=== PATIENT | female | born 2000 | race Caucasian/White ===

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

== ENCOUNTER 2022-03-03 10:14 | Outpatient (REF) | payer OTHER, SELFPAY ==
[2022-03-03 11:03] LABS: Influenza A PCR NEGATIVE (Negative); Influenza B PCR NEGATIVE (Negative); Resp Syncy Virus RNA Qual PCR NEGATIVE (Negative); SARS COV2 PCR INHOUSE NEGATIVE (Negative)
== END 2022-03-03 10:15 | disposition home or self-care (01) ==
LOC: HO.LAB 10:14
PROVIDERS: Visit Provider Internal Medicine
DX: Z20.822 Contact with and (suspected) exposure to COVID-19 (principal)
CPT/HCPCS: 0241U; C9803

== ENCOUNTER → 2022-03-20 10:04 | Outpatient (BNVA) | payer OTHER, SELFPAY | PROVIDERS: PCP Internal Medicine; Visit Provider Advanced Practice Midwife | DX: N92.6 Irregular menstruation, unspecified (principal); Z32.02 Encounter for pregnancy test, result negative | CPT/HCPCS: 81025; 99212 ==

== ENCOUNTER 2022-03-23 11:19 | Outpatient (REF) | payer OTHER, SELFPAY ==
[2022-03-23 13:22] LABS: Syphilis Screen Nonreactive (Nonreactive)
[2022-03-23 14:41] LABS: CT PCR NOT DETECTED (Not Detect.); NG PCR NOT DETECTED (Not Detect.)
[2022-03-24 08:07] LABS: HBc Num1 0.06 S/CO (0.00-0.79); HIV AB/AG Nonreactive (Nonreactive); HIV Num 1 0.09 S/CO (0.00-0.99); Hepatitis B Core Antibody Nonreactive (Nonreactive); ~HepC Num1 0.09 S/CO (0.00-0.79); ~Hepatitis C Antibody Nonreactive (Nonreactive)
== END 2022-03-23 11:20 | disposition home or self-care (01) ==
LOC: HO.LAB 11:19
PROVIDERS: PCP Internal Medicine; Visit Provider Advanced Practice Midwife
DX: Z01.419 Encounter for gynecological examination (general) (routine) without abnormal findings (principal); Z20.2 Contact with and (suspected) exposure to infections with a predominantly sexual mode of transmission
CPT/HCPCS: 36415; 86704; 86780; 86803; 87389; 87491; 87591

== ENCOUNTER 2022-04-10 12:41 | Outpatient (REF) | payer OTHER, SELFPAY ==
[2022-04-10 13:26] LABS: COVID-19 Test Negative (Negative)
== END 2022-04-10 12:42 | disposition home or self-care (01) ==
LOC: HO.LAB 12:41
PROVIDERS: Visit Provider Internal Medicine
DX: Z20.822 Contact with and (suspected) exposure to COVID-19 (principal)
CPT/HCPCS: 87635; C9803

== ENCOUNTER 2022-07-20 11:37 | Emergency (ER) | payer OTHER, SELFPAY ==
[2022-07-20 11:56] VITALS: BP 112/77; PULSE 64; RESP 18; TEMP 36.9; O2SAT 99; BMI 23.6
--- NOTE | 2022-07-20 11:57 | ED.SKABFB ---
HPI - Skin/Abscess/Foreign Bdy General Chief complaint: Skin/Abscess/Foreign Body <Debbie Ocampo CNP - Last Filed: 07/20/22 11:59> Stated complaint: lump under R Side Armpit <Debbie Ocampo CNP - Last Filed: 07/20/22 11:59> Time Seen by Provider: 07/20/22 16:27 <Debbie Ocampo CNP - Last Filed: 07/20/22 11:59> Source: patient <Aretha Dubois NP - Last Filed: 07/20/22 17:30> Mode of arrival: ambulatory <Aretha Dubois NP - Last Filed: 07/20/22 17:30> Limitations: no limitations <Aretha Dubois NP - Last Filed: 07/20/22 17:30> History of Present Illness HPI narrative: 22-year-old female with past medical history of cellulitis, gastroenteritis, and infected sebaceous cyst presents to the emergency department today with complaints of a right axilla cyst causing pain to breast in armpit. She states she has previously had I&D's for similar issues but has not seen a polymerization engineer or specialist for this. She denies any fever, chills, or red streaking. <Aretha Dubois NP - Last Filed: 07/20/22 17:30> MD complaint: abscess/boil <Aretha Dubois NP - Last Filed: 07/20/22 17:30> Onset (ago): day(s) (2) <Aretha Dubois NP - Last Filed: 07/20/22 17:30> Severity: moderate <Aretha Dubois NP - Last Filed: 07/20/22 17:30> Severity scale (1-10): 5 <Aretha Dubois NP - Last Filed: 07/20/22 17:30> Quality: sharp <Aretha uDbois NP - Last Filed: 07/20/22 17:30> Pain Consistency: constant <Aretha Dubois NP - Last Filed: 07/20/22 17:30> Relieving factors: none <Aretha Dubois NP - Last Filed: 07/20/22 17:30> Exacerbating factors: palpation <Aretha Dubois NP - Last Filed: 07/20/22 17:30> Context: none <Aretha Dubois NP - Last Filed: 07/20/22 17:30> Associated symptoms: denies other symptoms <Aretha Dubois NP - Last Filed: 07/20/22 17:30> Treatments prior to arrival: none <Aretha Dubois NP - Last Filed: 07/20/22 17:30> Related Data Home medications: Home Medications Medication Instructions Recorded Confirmed etonogestrel 68 mg subdermal subdermal 06/23/21 implant (Nexplanon) Previous Rx's Medication Instructions Recorded cefuroxime axetil 500 mg tablet 500 mg PO BID 7 days #14 tabs 07/20/22 clindamycin phosphate 1 % topical 1 appl topical BID #60 grams 07/20/22 gel doxycycline hyclate 100 mg tablet 100 mg PO BID 7 days #14 tabs 07/20/22 <Debbie Ocampo CNP - Last Filed: 07/20/22 11:59> Allergies/Adverse reactions: Allergies Allergy/AdvReac Type Severity Reaction Status Date / Time No Known Allergies Allergy Verified 03/23/22 10:57 <Debbie Ocampo CNP - Last Filed: 07/20/22 11:59> Review of Systems Review of Systems: In addition to documented HPI above, the additional ROS was obtained: Constitutional: No Weight loss, No Fever, No Chills ENT/Mouth: No Ear Pain, No Nasal Congestion, No Sinus Pain, No Hoarseness, No sore throat, No Rhinorrhea, No Swallowing Difficulty Cardiovascular: No Chest Pain, No SOB Respiratory: No Cough, No Sputum, No Wheezing Musculoskeletal: No joint pain, No Myalgias, No Joint Swelling Skin: No rash Neuro: No Weakness, No Numbness, No Paresthesias <Aretha Dubois NP - Last Filed: 07/20/22 17:30> Yes all other systems are reviewed and are negative <Aretha Dubois NP - Last Filed: 07/20/22 17:30> [facility] Past Medical History Attestation statement: The following information was validated with the patient. <Aretha Dubois NP - Last Filed: 07/20/22 17:30> Source: old records reviewed <Aretha Dubois NP - Last Filed: 07/20/22 17:30> Medical History: Medical History Gastroenteritis No active medical problems No known health problems <Debbie Ocampo CNP - Last Filed: 07/20/22 11:59> Family History Family History: Family History Maternal Grandfather Colon cancer, Onset Age: 70 <Debbie Ocampo CNP - Last Filed: 07/20/22 11:59> Social History Social History: Social History Household Members Other:: mom and stepdad Housing: House Alcohol intake: never Patient Tobacco Use Status: Never used Tobacco Advance Directives: No Advance Directives Information Provided: No Current occupational status: employed 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[place] Sexual orientation: Straight/Heterosexual Gender identity: Female <Debbie Ocampo CNP - Last Filed: 07/20/22 11:59> Physical Exam Vital Signs: Vital Signs: Last Vital Signs Temp 98.4 F 07/20/22 11:56 Pulse 64 07/20/22 11:56 Resp 18 07/20/22 11:56 BP 112/77 07/20/22 11:56 Pulse Ox 99 07/20/22 11:56 O2 Del Method 07/20/22 11:56 BMI result Body Mass Index 23.6 <Debbie Ocampo CNP - Last Filed: 07/20/22 11:59> Vital Signs: Last Vital Signs Temp 98.4 F 07/20/22 11:56 Pulse 64 07/20/22 11:56 Resp 18 07/20/22 11:56 BP 112/77 07/20/22 11:56 Pulse Ox 99 07/20/22 11:56 O2 Del Method 07/20/22 11:56 BMI result Body Mass Index 23.6 <Aretha Dubois SUPERVISOR [employer] SHEARING - Last Filed: 07/20/22 17:30> Const: General: cooperative, alert and awake <Aretha Dubois SUPERVIS[employer] SHE[employer] - Last Filed: 07/20/22 17:30> Nutritional Appearance: well nourished <Aretha Dubois [employer]PERVIS[employer] SHE[employer] - Last Filed: 07/20/22 17:30> Orientation/consciousness: patient oriented x3 <Aretha Dubois [employer]PERVIS[employer] - Last Filed: 07/20/22 17:30> Limitations: no limitations <Aretha Dubois, SUPERVIS[employer] - Last Filed: 07/20/22 17:30> HEENT: Head: Yes normal to inspection and Yes atraumatic <Aretha Dubois SUPERVIS[employer] - Last Filed: 07/20/22 17:30> Ears: hearing grossly normal bilaterally <Aretha Dubois [employer]PERVIS[employer] - Last Filed: 07/20/22 17:30> General nose exam: Normal external nose present <Aretha Dubois [employer]PER[employer] - Last Filed: 07/20/22 17:30> Face and sinus: Yes normal facial exam <Aretha Dubois [employer]PERVIS[employer] - Last Filed: 07/20/22 17:30> Mouth: Normal oral and palatal mucosa present <Aretha Dubois [employer]PERVIS[employer] - Last Filed: 07/20/22 17:30> Eyes: General: appearance normal, both eyes and all related structures <Aretha Dubois [employer] - Last Filed: 07/20/22 17:30> Visual Hernandez: normal visual hernandez by confrontation <Aretha Dubois [employer]PERVIS[employer] - Last Filed: 07/20/22 17:30> Alignment and Position: alignment normal <Aretha Dubois [employer]PERVIS[employer] - Last Filed: 07/20/22 17:30> Periorbital: periorbital findings normal <Aretha Dubois [employer]PERVIS[employer] SHE[employer] - Last Filed: 07/20/22 17:30> Eyelids: Yes eyelids normal <Aretha Dubois [employer]PERVIS[employer] - Last Filed: 07/20/22 17:30> Conjunctivae: conjunctivae normal <Aretha Dubois SUPERVIS[employer] - Last Filed: 07/20/22 17:30> Sclerae: sclerae normal <Aretha Dubois, SUPERVISOR [employer] SHE[employer] - Last Filed: 07/20/22 17:30> Corneas: corneas normal <Arethavonda Dubois, SUPERVIS[employer] - Last Filed: 07/20/22 17:30> Pupils: Equal, round and reactive pupils present <Aretha Dubois, SUPERVISOR [employer] SHEARING - Last Filed: 07/20/22 17:30> EOM: EOMs intact bilaterally <Aretha Dubois, SUPERVISOR [employer] SHEARING - Last Filed: 07/20/22 17:30> Neck: Neck: Yes normal visual inspection, Yes full ROM and Yes no lymphadenopathy <Aretha Dubois, SUPERVISOR [employer] SHEARING - Last Filed: 07/20/22 17:30> Chest: Chest palpation & inspection: normal inspection of the chest <Aretha Dubois, SUPERVISOR [employer] SHEARING - Last Filed: 07/20/22 17:30> Breast/axilla inspection: normal inspection of the breasts and abnormal inspection of the axilla (abscess right axilla ) <Aretha Dubois, SUPERVISOR [employer] SHEARING - Last Filed: 07/20/22 17:30> Breast/axilla palpation: normal palpation of the breasts and no axillary lymphadenopathy <Aretha Dubois, SUPERVISOR [employer] SHEARING - Last Filed: 07/20/22 17:30> Resp: Effort & Inspection: normal respiratory effort and not labored <Aretha Dubois, SUPERVISOR [employer] SHEARING - Last Filed: 07/20/22 17:30> Auscultation: clear to auscultation bilaterally, no crackles, no rhonchi and no wheezes <Aretha Dubois, SUPERVISOR [employer] SHEARING - Last Filed: 07/20/22 17:30> Cardio: Rate: regular rate <Aretha Dubois, SUPERVISOR [employer] SHEARING - Last Filed: 07/20/22 17:30> Rhythm: regular rhythm <Aretha Dubois, SUPERVISOR [employer] SHEARING - Last Filed: 07/20/22 17:30> Back/Spine/Pelvis: Cervical Spine: cervical ROM normal <Aretha Dubois, SUPERVISOR [employer] SHEARING - Last Filed: 07/20/22 17:30> Thoracic/Lumbar Spine: thoraco-lumbar ROM normal <Aretha Dubois, SUPERVISOR [employer] SHEARING - Last Filed: 07/20/22 17:30> Skin: Lesions: lesion noted (right axilla) <Aretha Dubois, SUPERVISOR [employer] SHEARING - Last Filed: 07/20/22 17:30> Neuro: General: patient oriented x3, tone normal and moves all extremities <Aretha Dubois, SUPERVISOR [employer] SHEARING - Last Filed: 07/20/22 17:30> Cranial nerves: Yes Equal, round and reactive pupils present <Aretha Dubois, SUPERVISOR [employer] SHEARING - Last Filed: 07/20/22 17:30> Cognition (Neuro): normal cognition <Arethaericka Dubois, SUPERVISOR [employer] SHEARING - Last Filed: 07/20/22 17:30> Gait exam (Neuro): Normal gait present <Aretha Dubois, SUPERVISOR [employer] SHEARING - Last Filed: 07/20/22 17:30> Motor exam (neuro): 5/5 motor strength present throughout <Aretha Dubosi, SUPERVISOR [employer] - Last Filed: 07/20/22 17:30> Extrem: General: Yes normal to inspection, Yes full ROM and Yes capillary refill normal <Aretha Dubois, SUPERVISOR [employer] SHEARING - Last Filed: 07/20/22 17:30> Psych: Appearance: grossly normal and well kempt <Aretha Dubois, SUPERVISOR [employer] SHEARING - Last Filed: 07/20/22 17:30> Speech and movement: Normal speech and movement present <Aretha Dubois, SUPERVISOR [employer] SHEARING - Last Filed: 07/20/22 17:30> Affect: normal affect <Aretha Dubois SUPERVISOR [employer] SHEARING - Last Filed: 07/20/22 17:30> Attitude: cooperative <Aretha Dubois, SUPERVISOR [employer] SHEARING - Last Filed: 07/20/22 17:30> Thought process: Normal thought process present <Aretha Dubois, SUPERVISOR [employer] SHEARING - Last Filed: 07/20/22 17:30> Thought content: Normal thought content present <Aretha Dubois, SUPERVISOR [employer] SHEARING - Last Filed: 07/20/22 17:30> Insight: Good insight present (Psych) <Aretha Dubois, SUPERVISOR [employer] SHEARING - Last Filed: 07/20/22 17:30> Judgement: Good judgement present (Psych) <Aretha Dubois, SUPERVISOR [employer] SHEARING - Last Filed: 07/20/22 17:30> Course Course Course Narrative: RME: Patient is a 22-year-old female who presents emergency department for evaluation of recurrent lump to the right armpit that is painful and swollen. She reports a history of prior abscesses requiring incision and drainage. Additionally she was having fever and chills last night. Well appearing overall, non-toxic in appearance. <Debbie Ocampo CNP - Last Filed: 07/20/22 11:59> Medical Decision Making Medical Decision Making MDM Narrative: 22-year-old female with past medical history of cellulitis, gastroenteritis, and infected sebaceous cyst presents to the emergency department today with complaints of a right axilla cyst causing pain to breast in armpit. On physical exam abscess/cyst present in right axilla, self draining red/yellow purulent discharge. Abscess anesthetized with 1% lidocaine and incised with blade. About 2 ml purulent drainage expressed from abscess. Pt tolerated without incident. Wound dressed and pt educated to keep wound clean and apply warm compressed 4 x day. Seven day course of antibiotics prescribed. Clindamycin topical ointment prescribed to help prevent further outbreaks until she can establish with a polymerization engineer. HPI, PE, and plan discussed with patient with no unanswered questions at this time. Educated to return to the with fever, chills, red streaking into the arm or chest, or any other concerning symptoms. Recommended follow-up with a primary care provider for further treatment and management <Aretha Dubois NP - Last Filed: 07/20/22 17:30> Procedures Abscess I/D Site: other (axilla ) <Aretha Dubois NP - Last Filed: 07/20/22 17:30> Side (if applicable): right <Aretha Dubois NP - Last Filed: 07/20/22 17:30> Local Anesthetic: lidocaine 1% <Aretha Dubois NP - Last Filed: 07/20/22 17:30> Amount of anesthesia used (mL): 1 <Aretha Dubois NP - Last Filed: 07/20/22 17:30> Technique: incised with blade <Aretha Dubois NP - Last Filed: 07/20/22 17:30> Amount of fluid expressed (mL): 2 <Aretha Dubois NP - Last Filed: 07/20/22 17:30> Sent for culture/gram staining?: No <Aretha Dubois NP - Last Filed: 07/20/22 17:30> Irrigation: Yes <Aretha Dubois NP - Last Filed: 07/20/22 17:30> Packing used?: none <Aretha Dubois NP - Last Filed: 07/20/22 17:30> Complications: pain <Aretha Dubois NP - Last Filed: 07/20/22 17:30> Discharge Plan Discharge Clinical Impression: Abscess <Debbie Ocampo CNP - Last Filed: 07/20/22 11:59> Patient Disposition: Home, Self-Care <Debbie Ocampo CNP - Last Filed: 07/20/22 11:59> Instructions: Abscess (ED), Incision and Drainage (ED) <Debbie Ocampo CNP - Last Filed: 07/20/22 11:59> Additional Instructions: Please keep wound clean and apply warm compresses 4 times a day. A seven day course of antibiotics has been prescribed to your preferred pharmacy. Please take full course as directed. Clindamycin topical ointment has been prescribed to help prevent further outbreaks until you can establish with a polymerization engineer. Please return to the with fever, chills, red streaking into the arm or chest, or any other concerning symptoms. Recommended follow-up with a primary care provider for further treatment and management <Debbie Ocampo CNP - Last Filed: 07/20/22 11:59> Prescriptions: New cefuroxime axetil 500 mg tablet 500 mg PO BID 7 Days Qty: 14 0RF doxycycline hyclate 100 mg tablet 100 mg PO BID 7 Days Qty: 14 0RF clindamycin phosphate 1 % gel 1 appl topical BID Qty: 60 0RF No Action Nexplanon 68 mg implant subdermal <Debbiehamilton Ocampo CNP - Last Filed: 07/20/22 11:59> Referrals: Becka Berrios MD [Primary Care Provider] - Ting Goode MD [Physician] - <Debbie Ocampo CNP - Last Filed: 07/20/22 11:59> Interventions: ED Discharge Assessment Last Done: 07/20/22 17:20 <Debbie Ocampo CNP - Last Filed: 07/20/22 11:59> Discharge Date/Time: 07/20/22 17:21 <Debbie Ocampo CNP - Last Filed: 07/20/22 11:59> Print Language: Wolof <Debbie Ocampo CNP - Last Filed: 07/20/22 11:59>
--- OUTSIDE RECORDS SUMMARY | 2022-07-20 15:03 | XMS_ITS | Continuity of Care Document ---
:2000 Author Organization [facility] enter/[facility] [place] Address Unavailable , Care Team Providers Name Role Phone Becka Berrios MD Primary Care Physician [place] [facility] [place] 02/10/22 - 03/12/22 [facility] [place] Allergies, Adverse Reactions, Alerts No Known Allergies Immunizations Given and Recorded Vaccine Date Status Refusal Reason hepatitis B adult vaccine 06/02/21 Given hepatitis B adult vaccine 01/29/21 Given influenza virus vaccine, inactivated 05/01/21 Recorded influenza virus vaccine, inactivated 05/21/20 Given influenza virus vaccine, inactivated 08/09/19 Recorded influenza virus vaccine, inactivated 07/20/18 Given influenza virus vaccine, inactivated 09/28/16 Given influenza virus vaccine, inactivated 08/07/15 Given influenza virus vaccine, inactivated 06/08/14 Given influenza virus vaccine, inactivated1 06/16/13 Given influenza virus vaccine, inactivated2 05/11/12 Given influenza virus vaccine, inactivated3 05/27/11 Given influenza virus vaccine, inactivated4 07/31/09 Given influenza virus vaccine, inactivated5 06/18/09 Given influenza virus vaccine, inactivated6 09/07/03 Given SARS-CoV-2 (COVID-19) mRNA BNT-162b2 vac 02/28/21 Given SARS-CoV-2 (COVID-19) mRNA BNT-162b2 vac 01/10/21 Recorde d hepatitis B pediatric vaccine 02/28/21 Given hepatitis B pediatric vaccine7 04/04/03 Given hepatitis B pediatric vaccine8 02 Given hepatitis B pediatric vaccine9 02 Given hepatitis B pediatric 02 Given Meningococcal Conjugate Vaccine 07/20/18 Given Meningococcal Conjugate Kfrowps98 06/16/13 Given Human Papillomavirus Vaccine 12/05/14 Given Human Papillomavirus Tycrmax03 08/17/14 Given Human Papillomavirus Wypjpcj82 08/17/14 Given Human Papillomavirus Vaccine 06/08/14 Given tetanus/diphtheria/pertussis, acel(Tdap)14 06/16/13 Given Varicella Virus Tmeyxlr71 05/27/11 Given Varicella Virus Izolqgx36 04/04/03 Given influenza virus vaccine, live17 05/20/10 Given diphtheria/tetanus/pertussis, acel(DTaP)18 06/19/07 Given diphtheria/tetanus/pertussis, acel(DTaP)19 11/17/06 Given diphtheria/tetanus/pertussis, acel(DTaP)20 09/07/03 Given diphtheria/tetanus/pertussis, acel(DTaP)21 02 Given diphtheria/tetanus/pertussis, acel(DTaP)22 02 Given diphtheria/tetanus/pertussis, acel(DTaP)23 02 Given Hepatitis A Pediatric Iizntnu41 01/05/07 Given Hepatitis A Pediatric Creuejj82 07/14/06 Given Hepatitis A Pediatric Xpmzdog66 05/14/06 Given Measles/Mumps/Rubella Virus Wlbpxdy61 11/17/06 Given Measles/Mumps/Rubella Virus Vbcdrte93 04/04/03 Given Poliovirus Vaccine, Pajwabmchsd40 11/17/06 Given Poliovirus Vaccine, Jhlgtmhawgw85 02 Given Poliovirus Vaccine, Pnfsrnfjrke65 02 Given Poliovirus Vaccine, Huptruamgfa21 02 Given pneumococcal 7-valent ivcnhvr19 09/07/03 Given pneumococcal 7-valent fpuqcmo70 02 Given pneumococcal 7-valent tbvwyiv74 02 Given pneumococcal 7-valent thgdoqs21 02 Given Haemophilus B conjugate (HbOC) 04/04/03 Given Haemophilus B conjugate (HbOC) kdupobw04 02 Given Haemophilus B conjugate (HbOC) oakkrno50 02 Given 1Result Comment: [06/16/2013] Ordered by Servando Note: VIS 02/01/12 [id number] Note: VIS 02/24/201130846Ubosk Note: --VIS 05/03/09 QODJF3Bouag Note: VIS 05/03/09 jcvpe8Rnaxf Note: ADMINISTER BY LU9Pzpgq Note: GIVEN BY DF9Ezncj Note: GIVEN BY WL0Cimnm Note: GIVEN BY SI76Dzmgc Note: GIVEN BY ST98Fbdjgn Comment: [06/16/2013] Ordered by Ifqu97Wfpzhw Comment: [08/22/2014] Ordered by Guhn13 Result Comment: [08/17/2014] Ordered by Guxk25Ivepir Comment: [06/16/2013] Ordered by Shfw06Obrwu Note: VIS 10/13/0716Admin Note: GIVEN BY OF85Typeb Note: VIS 01/29/2011084235Dddce Note: GIVEN BY NC97Eiugq Note: GIVEN BY PC94Gqgcc Note: GIVEN BY EG72Sjklu Note: GIVEN BY BJ16Yqzac Note: GIVEN BY XZ56Ouhfo Note: GIVEN BY YV75Somjs Note: GIVEN BY DE90Secvz Note: GIVEN BY ML25Ubcmr Note: GIVEN BY DG57Gcjao Note: GIVEN BY UR58Gjrex Note: GIVEN BY QM26Eebgb Note: GIVEN BY RN30 Admin Note: GIVEN BY YP76Lxvjx Note: GIVEN BY AG77Uuuww Note: GIVEN BY WX92Lndfs Note: GIVEN BY XD09Zrtts Note: GIVEN BY SI05Gguva Note: GIVEN BY CI99Pnzah Note: GIVEN BY QN74Jlbnm Note: GIVEN BY WW24Butzv Note: GIVEN BY EL27Mcstl Note: GIVEN BY RN Medications Adderall XR 10 mg oral capsule, extended release 1 capsule = 10 mg, By Mouth, Daily in AM, DX: ADHD, primarily inattentive Covering for PCP [place] PAT reviewed, # 30 capsule, 0 Refills, Maintenance, 02/04/22 17:32:00 EDT, ER Capsule, [id number], Partial fill upon patient request if... 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 Kath Bowers Psych: Clinician: Kath Peña Social History Social History Type Response Smoking Status Never (less than 100 in life time) entered on: 06/24/20 Sex
--- OUTSIDE RECORDS SUMMARY | 2022-07-20 15:03 | XMS_ITS | Continuity of Care Document ---
:2000 Author Organization [facility] enter/[facility] [place] Address Unavailable , Care Team Providers Name Role Phone Yash BRADFORD, Becka Chappell Primary Care Physician [place] [facility] [place] 08[place]21 [facility] [place] Allergies, Adverse Reactions, Alerts Substance Reaction Severity Status NKA Active Immunizations Given and Recorded Vaccine Date Status [...] pediatric vaccine9 02 Given hepatitis B pediatric tfopoal39 02 Given Meningococcal Conjugate Vaccine 07/20/18 Given Meningococcal Conjugate Rysphdk72 06/16/13 Given Human Papillomavirus Vaccine 12/05/14 Given Human Papillomavirus Hnlqsyh43 08/17/14 Given Human Papillomavirus Qsycnuw32 08/17/14 Given Human Papillomavirus Vaccine 06/08/14 Given tetanus/diphtheria/pertussis, acel(Tdap)14 06/16/13 Given Varicella Virus Sskgbal75 05/27/11 Given Varicella Virus Efwjdbe01 04/04/03 Given influenza virus vaccine, live17 05/20/10 Given diphtheria/tetanus/pertussis, acel(DTaP)18 06/19/07 Given diphtheria/tetanus/pertussis, acel(DTaP)19 11/17/06 Given diphtheria/tetanus/pertussis, acel(DTaP)20 09/07/03 Given diphtheria/tetanus/pertussis, acel(DTaP)21 02 Given diphtheria/tetanus/pertussis, acel(DTaP)22 02 Given diphtheria/tetanus/pertussis, acel(DTaP)23 02 Given Hepatitis A Pediatric Kpoymny47 01/05/07 Given Hepatitis A Pediatric Jdxenbp32 07/14/06 Given Hepatitis A Pediatric Ejdjwcd77 05/14/06 Given Measles/Mumps/Rubella Virus Atyvgqz52 11/17/06 Given Measles/Mumps/Rubella Virus Xgzogqt39 04/04/03 Given Poliovirus Vaccine, Yttleazglch07 11/17/06 Given Poliovirus Vaccine, Hdttwfqgzkw34 02 Given Poliovirus Vaccine, Mlufvxpnize28 02 Given Poliovirus Vaccine, Uiqdumpwekb59 02 Given pneumococcal 7-valent wchdgap49 09/07/03 Given pneumococcal 7-valent irgjcaz42 02 Given pneumococcal 7-valent 02 Given pneumococcal 7-valent qlecfcz93 02 Given Haemophilus B conjugate (HbOC) mhrewrr19 04/04/03 Given Haemophilus B conjugate (HbOC) 02 Given Haemophilus B conjugate (HbOC) oldrxym80 02 Given 1Result Comment: [06/16/2013] Ordered by Qkfw0Tfwxz Note: VIS 02/01/12 KLTNR6Dgqnu Note: VIS 02/24/201104955Catic Note: --VIS 05/03/09 AEEMU8Iwahm Note: VIS 05/03/09 rbqag6Nzrnt Note: ADMINISTER BY BL9Hghgy Note: GIVEN BY JF9Apgya Note: GIVEN BY VV7Qomdn Note: GIVEN BY FU45Uzgqw Note: GIVEN BY ZQ18Tpujhj Comment: [06/16/2013] Ordered by Ngql44Jscstl Comment: [08/22/2014] Ordered by Guhn13 Result Comment: [08/17/2014] Ordered by Gitk66Hoecdy Comment: [06/16/2013] Ordered by Lxtj15Lhtnb Note: VIS 10/13/0716Admin Note: GIVEN BY XP91Hbxtf Note: VIS 01/29/2011663414Ljftq Note: GIVEN BY ME08Nwelf Note: GIVEN BY LF81Kfggv Note: GIVEN BY WB24Otoce Note: GIVEN BY TI50Ezrux Note: GIVEN BY ZM03Kteac Note: GIVEN BY GY18Mczfw Note: GIVEN BY UT89Ubwke Note: GIVEN BY RQ54Qdnhn Note: GIVEN BY KV75Hgvdz Note: GIVEN BY LU36Llvmf Note: GIVEN BY IZ71Ubncw Note: GIVEN BY RN30 Admin Note: GIVEN BY VZ42Mpwfw Note: GIVEN BY TL36Rdsbz Note: GIVEN BY IQ60Qgjks Note: GIVEN BY WU73Tnapm Note: GIVEN BY XA23Wobko Note: GIVEN BY HC87Xtyjo Note: GIVEN BY PN33Giers Note: GIVEN BY UR26Wstqm Note: GIVEN BY CH33Mudgw Note: GIVEN BY RN Medications benzoyl peroxide 5% topical gel 1 applicator, Topically, Daily at bedtime, apply at bedtime-combine with clindamycin gel, # 30 Gm, 11 Refills, Maintenance, 08/07/15 18:09:30, 1 applicator Topically Daily at bedtime,Instr:apply at bedtime-combine with clindamycin gel Start Date: 08/07/15 Status: Orderedclindamycin 1% topical gel 1 application, Topically, Daily at bedtime, apply with benzoyl peroxide to areas of acne at hs, # 30Gm, 11 Refills, Maintenance, 08/07/15 18:09:36, Gel, 1 application Topically Daily at bedtime,Instr:apply with benzoyl peroxide to areas of acne at hs Start Date: 08/07/15 Status: OrderedJunel Fe 08/21 oral tablet 1 tablet, By Mouth, Daily, starting on the first day of the menstrual cycle. 3 month supply if allowed by insurance, # 84 tablet, 2 Refills, Maintenance, 06/24/20 13:56:00 EST, Tablet, [id number], Partial fill upon patient request, 1... 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 Kath Bowers Psych: Clinician: Kath Peña Social History Social History Type Response Smoking Status Never (less than 100 in life time) entered on: 06/24/20 Sex
--- OUTSIDE RECORDS SUMMARY | 2022-07-20 15:03 | XMS_ITS | Continuity of Care Document ---
:2002 Author Organization [facility] enter/[facility] Address [address] [place] [address]- Care Team Providers Name Role Phone Becka Berrios MD Primary Care Physician Encounter [facility] [place] Date(s): 03/03/22 - 04/02/22 [facility] [address] [place] [address]- Allergies, Adverse Reactions, Alerts No Known Allergies [...] pediatric vaccine9 02 Given hepatitis B pediatric vvpvwee96 02 Given Meningococcal Conjugate Vaccine 07/20/18 Given Meningococcal Conjugate Mttgvpo93 06/16/13 Given Human Papillomavirus Vaccine 12/05/14 Given Human Papillomavirus Zjqqtbn18 08/17/14 Given Human Papillomavirus Twapxec04 08/17/14 Given Human Papillomavirus Vaccine 06/08/14 Given tetanus/diphtheria/pertussis, acel(Tdap)14 06/16/13 Given Varicella Virus Rnocooo87 05/27/11 Given Varicella Virus Dllusbh07 04/04/03 Given influenza virus vaccine, live17 05/20/10 Given diphtheria/tetanus/pertussis, acel(DTaP)18 06/19/07 Given diphtheria/tetanus/pertussis, acel(DTaP)19 11/17/06 Given diphtheria/tetanus/pertussis, acel(DTaP)20 09/07/03 Given diphtheria/tetanus/pertussis, acel(DTaP)21 02 Given diphtheria/tetanus/pertussis, acel(DTaP)22 02 Given diphtheria/tetanus/pertussis, acel(DTaP)23 02 Given Hepatitis A Pediatric Bxlqeqg87 01/05/07 Given Hepatitis A Pediatric Knrdwht21 07/14/06 Given Hepatitis A Pediatric Nhvvtih23 05/14/06 Given Measles/Mumps/Rubella Virus Zxoqadv38 11/17/06 Given Measles/Mumps/Rubella Virus Zpaueho07 04/04/03 Given Poliovirus Vaccine, Tnzhsvbjdgn92 11/17/06 Given Poliovirus Vaccine, Gwvqlfxecjw04 02 Given Poliovirus Vaccine, Gbimwsrwlse87 02 Given Poliovirus Vaccine, Zigvxjgjmpi76 02 Given pneumococcal 7-valent dabtysc26 09/07/03 Given pneumococcal 7-valent zoxetse40 02 Given pneumococcal 7-valent rruhnlr04 02 Given pneumococcal 7-valent ckuraib42 02 Given Haemophilus B conjugate (HbOC) cookxxk83 04/04/03 Given Haemophilus B conjugate (HbOC) puqsque27 02 Given Haemophilus B conjugate (HbOC) tyksbhl81 02 Given 1Result Comment: [06/16/2013] Ordered by Zblu4Fzrgr Note: VIS 02/01/12 EKALM4Vtsxg Note: VIS 02/24/201117379Nxdpp Note: --VIS 05/03/09 SXAXO6Pstsi Note: VIS 05/03/09 alnwe4Cbrwp Note: ADMINISTER BY JD4Cfhxq Note: GIVEN BY LH0Rnbfi Note: GIVEN BY KA9Qnpoa Note: GIVEN BY DV08Dyxjy Note: GIVEN BY LY44Lvijdj Comment: [06/16/2013] Ordered by Cgdr55Piwiru Comment: [08/22/2014] Ordered by Guhn13 Result Comment: [08/17/2014] Ordered by Zgsu08Mtoyjc Comment: [06/16/2013] Ordered by Rxtf15Mtkfi Note: VIS 10/13/0716Admin Note: GIVEN BY NT44Ywpta Note: VIS 01/29/2011788398Zswaw Note: GIVEN BY GT44Ywuvv Note: GIVEN BY WC83Asuot Note: GIVEN BY UC46Vmndj Note: GIVEN BY MG55Ieuww Note: GIVEN BY BN59Cfsge Note: GIVEN BY RI78Xuyep Note: GIVEN BY CT11Tvutw Note: GIVEN BY OO47Nstyk Note: GIVEN BY UK70Yvzso Note: GIVEN BY UJ30Hyyeq Note: GIVEN BY EE31Dnasf Note: GIVEN BY RN30 Admin Note: GIVEN BY YY65Znydc Note: GIVEN BY VA36Fhads Note: GIVEN BY HJ83Ugubo Note: GIVEN BY ZV11Opepy Note: GIVEN BY BY01Pfwkk Note: GIVEN BY BN82Jsocw Note: GIVEN BY WH17Nqoap Note: GIVEN BY RB12Hqkrc Note: GIVEN BY MY95Gntzn Note: GIVEN BY RN Medications Adderall XR 10 mg oral capsule, extended release 1 capsule = 10 mg, By Mouth, Daily in AM, DX: ADHD, primarily inattentive, # 30 capsule, 0 Refills, Maintenance, 03/18/22 13:43:00 EDT, ER Capsule, [facility][id number], Partial fill upon patient request if the prescription is for a schedule II... 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 Kath LawrenceSomxqnws4Bcsxlp Psych: Clinician: Kath Peña Social History Social History Type Response Smoking Status Never (less than 100 in life time) entered on: 06/24/20 Sex Care Team PersonnelName: Becka Berrios MD Address: [address] [place] [phone]- [place]
--- OUTSIDE RECORDS SUMMARY | 2022-07-20 15:03 | XMS_ITS | Continuity of Care Document ---
:2002 Author Organization [facility] enter/[facility] Address Unavailable , Care Team Providers Name Role Phone Yash BRADFORD, Becka Chappell Primary Care Physician Encounter [facility] [place] Date(s): 07/17/21 - 08/16/21 [facility] Allergies, Adverse Reactions, Alerts No Known Allergies [...] Meningococcal Conjugate Vaccine 07/20/18 Given Meningococcal Conjugate Oqkqzvz52 06/16/13 Given Human Papillomavirus Vaccine 12/05/14 Given Human Papillomavirus Oztsgkn05 08/17/14 Given Human Papillomavirus Yhrkwjb13 08/17/14 Given Human Papillomavirus Vaccine 06/08/14 Given tetanus/diphtheria/pertussis, acel(Tdap)14 06/16/13 Given Varicella Virus Orvmkkt42 05/27/11 Given Varicella Virus Zerxltl86 04/04/03 Given influenza virus vaccine, live17 05/20/10 Given diphtheria/tetanus/pertussis, acel(DTaP)18 06/19/07 Given diphtheria/tetanus/pertussis, acel(DTaP)19 11/17/06 Given diphtheria/tetanus/pertussis, acel(DTaP)20 09/07/03 Given diphtheria/tetanus/pertussis, acel(DTaP)21 02 Given diphtheria/tetanus/pertussis, acel(DTaP)22 02 Given diphtheria/tetanus/pertussis, acel(DTaP)23 02 Given Hepatitis A Pediatric Mjrzsbd34 01/05/07 Given Hepatitis A Pediatric Mjpnrtd06 07/14/06 Given Hepatitis A Pediatric Ygofmbt35 05/14/06 Given Measles/Mumps/Rubella Virus Lrpmxct86 11/17/06 Given Measles/Mumps/Rubella Virus Ysgakkz34 04/04/03 Given Poliovirus Vaccine, Mfvmyzmqkmv17 11/17/06 Given Poliovirus Vaccine, Dmvtncwdsfj37 02 Given Poliovirus Vaccine, Naryndbrqom53 02 Given Poliovirus Vaccine, Zkoughhyagi67 02 Given pneumococcal 7-valent mevzdqa46 09/07/03 Given pneumococcal 7-valent 02 Given pneumococcal 7-valent bmalmgj12 02 Given pneumococcal 7-valent wxcqcyd72 02 Given Haemophilus B conjugate (HbOC) cqifrwv80 04/04/03 Given Haemophilus B conjugate (HbOC) vfmfotd12 02 Given Haemophilus B conjugate (HbOC) 02 Given 1Result Comment: [06/16/2013] Ordered by Lrgu2Ausix Note: VIS 02/01/12 QQAYR8Lxgos Note: VIS 02/24/201161570Iohrd Note: --VIS 05/03/09 WEVKG0Bzdfi Note: VIS 05/03/09 iryip3Mpdkx Note: ADMINISTER BY KF1Mlxng Note: GIVEN BY MV6Cqtcb Note: GIVEN BY EO9Yhprl Note: GIVEN BY WH12Jmhep Note: GIVEN BY JW63Aejplu Comment: [06/16/2013] Ordered by Jtny49Jpxnpr Comment: [08/22/2014] Ordered by Guhn13 Result Comment: [08/17/2014] Ordered by Szgc90Nhxbpo Comment: [06/16/2013] Ordered by Frze34Unswm Note: VIS 10/13/0716Admin Note: GIVEN BY RW24Bwbkh Note: VIS 01/29/2011388944Ixzwi Note: GIVEN BY WV50Aspwe Note: GIVEN BY PI48Hjcya Note: GIVEN BY TH05Klimv Note: GIVEN BY SB14Xefmq Note: GIVEN BY JC23Ifoav Note: GIVEN BY YC78Vkvex Note: GIVEN BY RX03Qvgds Note: GIVEN BY YR91Zhqch Note: GIVEN BY UR12Aidaz Note: GIVEN BY VQ74Jocdj Note: GIVEN BY HB64Lwtqp Note: GIVEN BY RN30 Admin Note: GIVEN BY ZX24Rxdsv Note: GIVEN BY IW38Jvuvr Note: GIVEN BY VJ23Fbfrt Note: GIVEN BY EF82Vowtd Note: GIVEN BY IO53Aebun Note: GIVEN BY LB36Amjvl Note: GIVEN BY GH20Jcldm Note: GIVEN BY JE97Zisjh Note: GIVEN BY QG14Vdouc Note: GIVEN BY RN Medications benzoyl peroxide [...] 2 Refills, Maintenance, 06/24/20 13:56:00 EST, Tablet, [facility] #[id number], Partial fill upon patient request, 1... 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 Kath LawrenceRfizdspf5Wzwesj Psych: Clinician: Kath Peña Social History Social History Type Response Smoking Status Never (less than 100 in life time) entered on: 06/24/20 Sex
--- OUTSIDE RECORDS SUMMARY | 2022-07-20 15:03 | XMS_ITS | Continuity of Care Document ---
:2002 Author Organization [facility] enter/[facility] Address Unavailable , Care Team Providers Name Role Phone Becka Berrios MD Primary Care Physician Encounter [facility] [place] Date(s): 01/05/22 - 02/04/22 [facility] Allergies, Adverse Reactions, Alerts No Known [...] pediatric vaccine9 02 Given hepatitis B pediatric oligopn30 02 Given Meningococcal Conjugate Vaccine 07/20/18 Given Meningococcal Conjugate Ulkxmvs94 06/16/13 Given Human Papillomavirus Vaccine 12/05/14 Given Human Papillomavirus Zgvzjph68 08/17/14 Given Human Papillomavirus Jzkwsjd40 08/17/14 Given Human Papillomavirus Vaccine 06/08/14 Given tetanus/diphtheria/pertussis, acel(Tdap)14 06/16/13 Given Varicella Virus Kreflyz70 05/27/11 Given Varicella Virus Cpivabk98 04/04/03 Given influenza virus vaccine, live17 05/20/10 Given diphtheria/tetanus/pertussis, acel(DTaP)18 06/19/07 Given diphtheria/tetanus/pertussis, acel(DTaP)19 11/17/06 Given diphtheria/tetanus/pertussis, acel(DTaP)20 09/07/03 Given diphtheria/tetanus/pertussis, acel(DTaP)21 02 Given diphtheria/tetanus/pertussis, acel(DTaP)22 02 Given diphtheria/tetanus/pertussis, acel(DTaP)23 02 Given Hepatitis A Pediatric Engxnqg09 01/05/07 Given Hepatitis A Pediatric Qyalhol42 07/14/06 Given Hepatitis A Pediatric Blxoovg00 05/14/06 Given Measles/Mumps/Rubella Virus Dullext07 11/17/06 Given Measles/Mumps/Rubella Virus Gczlypf07 04/04/03 Given Poliovirus Vaccine, Tewwdoczgvk12 11/17/06 Given Poliovirus Vaccine, Votqzewmucc54 02 Given Poliovirus Vaccine, Thogzszyzqe77 02 Given Poliovirus Vaccine, Jvlkhihwdvg65 02 Given pneumococcal 7-valent zevydbe51 09/07/03 Given pneumococcal 7-valent vmkbspi05 02 Given pneumococcal 7-valent gzxzouu52 02 Given pneumococcal 7-valent 02 Given Haemophilus B conjugate (HbOC) lewjecm65 04/04/03 Given Haemophilus B conjugate (HbOC) icsbvvi89 02 Given Haemophilus B conjugate (HbOC) cjiemhz37 02 Given 1Result Comment: [06/16/2013] Ordered by Servando Note: VIS 02/01/12 NCURQ6Snynk Note: VIS 02/24/201113117Zemls Note: --VIS 05/03/09 FNNCB1Krvuo Note: VIS 05/03/09 qryuu7Woxyl Note: ADMINISTER BY YB1Bdfhd Note: GIVEN BY EK8Ctrmf Note: GIVEN BY QZ4Wjuyg Note: GIVEN BY YF75Wztnu Note: GIVEN BY OD87Agmhzs Comment: [06/16/2013] Ordered by Bavk76Iulqov Comment: [08/22/2014] Ordered by Guhn13 Result Comment: [08/17/2014] Ordered by Ehmx59Jthsgd Comment: [06/16/2013] Ordered by Mmbf10Rfjmq Note: VIS 10/13/0716Admin Note: GIVEN BY CV74Miynl Note: VIS 01/29/2011797504Eymvd Note: GIVEN BY OB23Qnimv Note: GIVEN BY DJ10Xudzj Note: GIVEN BY WK38Bgdhx Note: GIVEN BY KE34Ugbvv Note: GIVEN BY RQ94Xtfrs Note: GIVEN BY GD00Dbcgy Note: GIVEN BY EL86Vezmq Note: GIVEN BY IN85Osukg Note: GIVEN BY MJ76Yyncw Note: GIVEN BY EM79Lsxjl Note: GIVEN BY VI33Syltp Note: GIVEN BY RN30 Admin Note: GIVEN BY CF62Usmlt Note: GIVEN BY VN11Einml Note: GIVEN BY XS43Ziubt Note: GIVEN BY IX39Tjyzb Note: GIVEN BY FW90Kmvfr Note: GIVEN BY BG58Ttyap Note: GIVEN BY PV29Bgela Note: GIVEN BY GL12Pucpr Note: GIVEN BY OP87Iajvm Note: GIVEN BY RN Medications Adderall XR 10 mg oral capsule, extended release 1 capsule = 10 mg, By Mouth, Daily in AM, DX: ADHD, primarily inattentive Covering for PCP [place] PAT reviewed, # 30 capsule, 0 Refills, Maintenance, 02/04/22 17:32:00 EDT, ER Capsule, [facility] #[id number], Partial fill upon patient request if... Start [...]
--- OUTSIDE RECORDS SUMMARY | 2022-07-20 15:03 | XMS_ITS | Continuity of Care Document ---
:2002 Author Organization [facility] enter/[facility] Address Unavailable , Care Team Providers Name Role Phone Becka Berrios MD Primary Care Physician [place] [facility] [place]06[place]21 [place] 12/06/21 [facility] Allergies, Adverse Reactions, Alerts No [...] pediatric vaccine9 02 Given hepatitis B pediatric ujkiirl44 02 Given Meningococcal Conjugate Vaccine 07/20/18 Given Meningococcal Conjugate Tgdaomq41 06/16/13 Given Human Papillomavirus Vaccine 12/05/14 Given Human Papillomavirus Exlebng55 08/17/14 Given Human Papillomavirus Wruoacz12 08/17/14 Given Human Papillomavirus Vaccine 06/08/14 Given tetanus/diphtheria/pertussis, acel(Tdap)14 06/16/13 Given Varicella Virus Rkcuhre90 05/27/11 Given Varicella Virus Usnrspa46 04/04/03 Given influenza virus vaccine, live17 05/20/10 Given diphtheria/tetanus/pertussis, acel(DTaP)18 06/19/07 Given diphtheria/tetanus/pertussis, acel(DTaP)19 11/17/06 Given diphtheria/tetanus/pertussis, acel(DTaP)20 09/07/03 Given diphtheria/tetanus/pertussis, acel(DTaP)21 02 Given diphtheria/tetanus/pertussis, acel(DTaP)22 02 Given diphtheria/tetanus/pertussis, acel(DTaP)23 02 Given Hepatitis A Pediatric Tvmwjuc68 01/05/07 Given Hepatitis A Pediatric Unpsckw55 07/14/06 Given Hepatitis A Pediatric Dpwvtaj35 05/14/06 Given Measles/Mumps/Rubella Virus Vcqbqgx18 11/17/06 Given Measles/Mumps/Rubella Virus Gubaxla76 04/04/03 Given Poliovirus Vaccine, Kbbqwcziluo85 11/17/06 Given Poliovirus Vaccine, Lvkuddxxyqa21 02 Given Poliovirus Vaccine, Bxmnletrhis24 02 Given Poliovirus Vaccine, Hqktninkeds13 02 Given pneumococcal 7-valent piyjomx64 09/07/03 Given pneumococcal 7-valent mblitpa77 02 Given pneumococcal 7-valent yreqyph59 02 Given pneumococcal 7-valent wbqgyef83 02 Given Haemophilus B conjugate (HbOC) ilvafac13 04/04/03 Given Haemophilus B conjugate (HbOC) idlsbtt01 02 Given Haemophilus B conjugate (HbOC) vgjajyc68 02 Given 1Result Comment: [06/16/2013] Ordered by Ndyt1Lopoi Note: VIS 02/01/12 QILLB3Gvzrt Note: VIS 02/24/201179495Yirlm Note: --VIS 05/03/09 JBUGH4Qfcfv Note: VIS 05/03/09 fdsfj6Jtcwp Note: ADMINISTER BY JI1Ydlrq Note: GIVEN BY XY8Yhvfs Note: GIVEN BY WZ8Prroa Note: GIVEN BY QA20Mwdps Note: GIVEN BY RF68Ceghvi Comment: [06/16/2013] Ordered by Mthi85Lyokki Comment: [08/22/2014] Ordered by Guhn13 Result Comment: [08/17/2014] Ordered by Rhia36Qtgxyx Comment: [06/16/2013] Ordered by Tybr64Rqchv Note: VIS 10/13/0716Admin Note: GIVEN BY CN55Vfcaj Note: VIS 01/29/2011277026Bfuuq Note: GIVEN BY WA13Nwypq Note: GIVEN BY SE66Ghrms Note: GIVEN BY AK70Ahclx Note: GIVEN BY MN23Hecsa Note: GIVEN BY MG98Fcopp Note: GIVEN BY XK46Wlfhf Note: GIVEN BY AZ29Zelku Note: GIVEN BY EW31Ixigk Note: GIVEN BY XW85Qffag Note: GIVEN BY DX56Ktsqg Note: GIVEN BY JW37Vltzf Note: GIVEN BY RN30 Admin Note: GIVEN BY JJ00Grtqm Note: GIVEN BY OP70Tmyxd Note: GIVEN BY KC79Zjocr Note: GIVEN BY DT49Txxhn Note: GIVEN BY DB97Myvgz Note: GIVEN BY AP55Lshdp Note: GIVEN BY YU00Wcput Note: GIVEN BY TU87Upmjm Note: GIVEN BY KM68Flbel Note: GIVEN BY RN Medications 08/21 oral tablet 1 tablet, By Mouth, Daily, starting on the first day of the menstrual cycle. 3 month supply if allowed by insurance, # 84 tablet, 2 Refills, Maintenance, 06/24/20 13:56:00 EST, Tablet, [facility][id number], Partial fill upon patient request, 1... 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 Kath LawrenceLhpapwsk1Kalimt Psych: Clinician: Kath Peña Social History Social History Type Response Smoking Status Never (less than 100 in life time) entered on: 06/24/20 Sex
--- OUTSIDE RECORDS SUMMARY | 2022-07-20 15:03 | XMS_ITS | Continuity of Care Document ---
:2002 Author Organization [facility] enter/[facility] [place] Address [address] [place] [address]- Care Team Providers Name Role Phone Becka Berrios MD Primary Care Physician En[place] [facility] [place] Date(s): 03/16/22 - 04/15/22 [facility] [place] [address] [place] [address]- Allergies, Adverse Reactions, Alerts No Known Allergies [...] pediatric vaccine9 02 Given hepatitis B pediatric cumiwop63 02 Given Meningococcal Conjugate Vaccine 07/20/18 Given Meningococcal Conjugate Hxpgjbi12 06/16/13 Given Human Papillomavirus Vaccine 12/05/14 Given Human Papillomavirus Jnwamta60 08/17/14 Given Human Papillomavirus Rqiwbkm19 08/17/14 Given Human Papillomavirus Vaccine 06/08/14 Given tetanus/diphtheria/pertussis, acel(Tdap)14 06/16/13 Given Varicella Virus Fjexegy42 05/27/11 Given Varicella Virus Qjfirbp95 04/04/03 Given influenza virus vaccine, live17 05/20/10 Given diphtheria/tetanus/pertussis, acel(DTaP)18 06/19/07 Given diphtheria/tetanus/pertussis, acel(DTaP)19 11/17/06 Given diphtheria/tetanus/pertussis, acel(DTaP)20 09/07/03 Given diphtheria/tetanus/pertussis, acel(DTaP)21 02 Given diphtheria/tetanus/pertussis, acel(DTaP)22 02 Given diphtheria/tetanus/pertussis, acel(DTaP)23 02 Given Hepatitis A Pediatric Yexjjnu12 01/05/07 Given Hepatitis A Pediatric Pksfdnw32 07/14/06 Given Hepatitis A Pediatric Vbymmlg05 05/14/06 Given Measles/Mumps/Rubella Virus Gpvfeza88 11/17/06 Given Measles/Mumps/Rubella Virus Nstajpx20 04/04/03 Given Poliovirus Vaccine, Ygvvtoxkelg44 11/17/06 Given Poliovirus Vaccine, Mmdaslumadg88 02 Given Poliovirus Vaccine, Ybgedfiknoa95 02 Given Poliovirus Vaccine, Axbrywzprgc59 02 Given pneumococcal 7-valent vbxurap00 09/07/03 Given pneumococcal 7-valent xtoqgbv06 02 Given pneumococcal 7-valent xprobiv10 02 Given pneumococcal 7-valent xyehbjb44 02 Given Haemophilus B conjugate (HbOC) nezqtwl08 04/04/03 Given Haemophilus B conjugate (HbOC) 02 Given Haemophilus B conjugate (HbOC) rytpjxy71 02 Given 1Result Comment: [06/16/2013] Ordered by Lekd1Lxdun Note: VIS 02/01/12 XFDLB2Gikar Note: VIS 02/24/201120506Pbnko Note: --VIS 05/03/09 RRIEW1Owoho Note: VIS 05/03/09 lkhvz9Vyufc Note: ADMINISTER BY NV3Sdgmv Note: GIVEN BY LJ9Ftezy Note: GIVEN BY FK4Cgmuk Note: GIVEN BY BD48Mnyef Note: GIVEN BY EK81Sjphyr Comment: [06/16/2013] Ordered by Jrtg28Cyofef Comment: [08/22/2014] Ordered by Guhn13 Result Comment: [08/17/2014] Ordered by Eihc85Onoscx Comment: [06/16/2013] Ordered by Yeqr87Mffrb Note: VIS 10/13/0716Admin Note: GIVEN BY WC08Vioxm Note: VIS 01/29/2011106134Lmpts Note: GIVEN BY IE80Lxjop Note: GIVEN BY PR51Ezyac Note: GIVEN BY LS10Xhjwx Note: GIVEN BY PQ33Emtse Note: GIVEN BY WQ83Joydb Note: GIVEN BY GV65Cpbki Note: GIVEN BY EM08Wyyuu Note: GIVEN BY KB49Otxsp Note: GIVEN BY MI39Lepci Note: GIVEN BY JS72Zojis Note: GIVEN BY HT72Niwtw Note: GIVEN BY RN30 Admin Note: GIVEN BY HA73Rtgzs Note: GIVEN BY GZ93Gaije Note: GIVEN BY RN80Byfzr Note: GIVEN BY HU01Gadqn Note: GIVEN BY GI32Vbtcg Note: GIVEN BY MA37Byxou Note: GIVEN BY KU85Uiprr Note: GIVEN BY AS71Ctudp Note: GIVEN BY OS39Zxvpe Note: GIVEN BY RN Medications Adderall XR 10 mg oral capsule, extended release 1 capsule = 10 mg, By Mouth, Daily in AM, DX: ADHD, primarily inattentive, # 30 capsule, 0 Refills, Maintenance, 03/18/22 13:43:00 EDT, ER Capsule, [facility][id number], Partial fill upon patient request if the prescription is for a schedule II... 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 Kath LawrenceCozladqt8Ytgpak Psych: Clinician: Kath Peña Social History Social History Type Response Smoking Status Never (less than 100 in life time) entered on: 06/24/20 Sex Care Team PersonnelName: Becka Berrios MD Address: [address] [place] [phone]- [place]
--- OUTSIDE RECORDS SUMMARY | 2022-07-20 15:03 | XMS_ITS | Continuity of Care Document ---
:2002 Author Organization [facility] enter/[facility] Address Unavailable , Care Team Providers Name Role Phone Becka Berrios MD Primary Care Physician Encounter [facility] [place] Date(s): 11/05/21 - 12/05/21 [facility] Attending Physician: Janae Jackson Admitting Physician: Janae Jackson Referring Physician: Janae Jackson Allergies, Adverse Reactions, Alerts No Known Allergies [...] pediatric vaccine9 02 Given hepatitis B pediatric ibrbhgm31 02 Given Meningococcal Conjugate Vaccine 07/20/18 Given Meningococcal Conjugate Osqhtyl38 06/16/13 Given Human Papillomavirus Vaccine 12/05/14 Given Human Papillomavirus Vcwfpcu97 08/17/14 Given Human Papillomavirus Qbddiss45 08/17/14 Given Human Papillomavirus Vaccine 06/08/14 Given tetanus/diphtheria/pertussis, acel(Tdap)14 06/16/13 Given Varicella Virus Oqagfwd69 05/27/11 Given Varicella Virus Nmeflda69 04/04/03 Given influenza virus vaccine, live17 05/20/10 Given diphtheria/tetanus/pertussis, acel(DTaP)18 06/19/07 Given diphtheria/tetanus/pertussis, acel(DTaP)19 11/17/06 Given diphtheria/tetanus/pertussis, acel(DTaP)20 09/07/03 Given diphtheria/tetanus/pertussis, acel(DTaP)21 02 Given diphtheria/tetanus/pertussis, acel(DTaP)22 02 Given diphtheria/tetanus/pertussis, acel(DTaP)23 02 Given Hepatitis A Pediatric Gxcutuj92 01/05/07 Given Hepatitis A Pediatric Cqrijru33 07/14/06 Given Hepatitis A Pediatric Ksladbx14 05/14/06 Given Measles/Mumps/Rubella Virus Klqgiqp24 11/17/06 Given Measles/Mumps/Rubella Virus Werkhqv15 04/04/03 Given Poliovirus Vaccine, Iqwmufnazbg69 11/17/06 Given Poliovirus Vaccine, Psjwxuqfyym17 02 Given Poliovirus Vaccine, Elatazmmryi52 02 Given Poliovirus Vaccine, Fefwuzvvimk87 02 Given pneumococcal 7-valent ppgmrwe50 09/07/03 Given pneumococcal 7-valent aehiwmd77 02 Given pneumococcal 7-valent gtmjrzo09 02 Given pneumococcal 7-valent iifoyqa67 02 Given Haemophilus B conjugate (HbOC) 04/04/03 Given Haemophilus B conjugate (HbOC) xtzidvf00 02 Given Haemophilus B conjugate (HbOC) defdkpx99 02 Given 1Result Comment: [06/16/2013] Ordered by Servando Note: VIS 02/01/12 ZFBYM0Lcctj Note: VIS 02/24/201119521Cyirt Note: --VIS 05/03/09 TYYSZ2Ughni Note: VIS 05/03/09 melel9Enuiq Note: ADMINISTER BY TU8Vqvut Note: GIVEN BY AQ4Tsrly Note: GIVEN BY BD1Tnixu Note: GIVEN BY IJ29Hqhgq Note: GIVEN BY TC54Uwjnnm Comment: [06/16/2013] Ordered by Vbpc85Jjyafa Comment: [08/22/2014] Ordered by Guhn13 Result Comment: [08/17/2014] Ordered by Idmc35Qpqvjw Comment: [06/16/2013] Ordered by Vgfi56Rtbvs Note: VIS 10/13/0716Admin Note: GIVEN BY XG73Vofps Note: VIS 01/29/2011471986Dfkfq Note: GIVEN BY HP25Xwfhq Note: GIVEN BY TP11Wlrni Note: GIVEN BY OV87Ddhml Note: GIVEN BY XW76Cixpk Note: GIVEN BY MG67Osazp Note: GIVEN BY RP76Mxfzu Note: GIVEN BY DV04Laiwf Note: GIVEN BY BJ13Coler Note: GIVEN BY YC94Tdyak Note: GIVEN BY HK31Uxgmz Note: GIVEN BY PZ94Mgauc Note: GIVEN BY RN30 Admin Note: GIVEN BY PS02Duhak Note: GIVEN BY FU06Lunyh Note: GIVEN BY XJ05Unszj Note: GIVEN BY KQ76Aoxix Note: GIVEN BY WB15Cvzih Note: GIVEN BY RK16Cnbql Note: GIVEN BY EL79Kjywk Note: GIVEN BY KP16Ojues Note: GIVEN BY JM11Rnqsk Note: GIVEN BY RN Medications 08/21 oral tablet 1 tablet, By Mouth, Daily, starting on the first day of the menstrual cycle. 3 month supply if allowed by insurance, # 84 tablet, 2 Refills, Maintenance, 06/24/20 13:56:00 EST, Tablet, [id number], Partial fill upon patient request, 1... Start [...]
--- OUTSIDE RECORDS SUMMARY | 2022-07-20 15:03 | XMS_ITS | Continuity of Care Document ---
:2002 Author Organization [facility] Address [address] [place] [address]- Care Team Providers Name Role Phone Becka Berrios MD Primary Care Physician Encounter [facility] Date(s): 02/03/22 - 03/05/22 [facility] [address] [place] [address]- Allergies, Adverse Reactions, Alerts No Known Allergies [...] pediatric vaccine9 02 Given hepatitis B pediatric xhueilb64 02 Given Meningococcal Conjugate Vaccine 07/20/18 Given Meningococcal Conjugate Vmombxz46 06/16/13 Given Human Papillomavirus Vaccine 12/05/14 Given Human Papillomavirus Kypryae46 08/17/14 Given Human Papillomavirus Wfwmobi96 08/17/14 Given Human Papillomavirus Vaccine 06/08/14 Given tetanus/diphtheria/pertussis, acel(Tdap)14 06/16/13 Given Varicella Virus Vnqlcig07 05/27/11 Given Varicella Virus Feesyaf48 04/04/03 Given influenza virus vaccine, live17 05/20/10 Given diphtheria/tetanus/pertussis, acel(DTaP)18 06/19/07 Given diphtheria/tetanus/pertussis, acel(DTaP)19 11/17/06 Given diphtheria/tetanus/pertussis, acel(DTaP)20 09/07/03 Given diphtheria/tetanus/pertussis, acel(DTaP)21 02 Given diphtheria/tetanus/pertussis, acel(DTaP)22 02 Given diphtheria/tetanus/pertussis, acel(DTaP)23 02 Given Hepatitis A Pediatric Seoblri02 01/05/07 Given Hepatitis A Pediatric Zaiyupk60 07/14/06 Given Hepatitis A Pediatric Smbfvfx27 05/14/06 Given Measles/Mumps/Rubella Virus Lioqump02 11/17/06 Given Measles/Mumps/Rubella Virus Hgrcmqp56 04/04/03 Given Poliovirus Vaccine, Gdaqtqztpdd12 11/17/06 Given Poliovirus Vaccine, Ofvpgdfwavz22 02 Given Poliovirus Vaccine, Hjzadpidvwu54 02 Given Poliovirus Vaccine, Wodqpkmpixc95 02 Given pneumococcal 7-valent mcohgpr99 09/07/03 Given pneumococcal 7-valent vrdokst99 02 Given pneumococcal 7-valent sohaemc00 02 Given pneumococcal 7-valent qprsorl50 02 Given Haemophilus B conjugate (HbOC) bgkvnis99 04/04/03 Given Haemophilus B conjugate (HbOC) ppztmyh99 02 Given Haemophilus B conjugate (HbOC) mapvhbc01 02 Given 1Result Comment: [06/16/2013] Ordered by Servando Note: VIS 02/01/12 NCNAE3Sqgdv Note: VIS 02/24/201194396Lptca Note: --VIS 05/03/09 CEDGK3Quvsj Note: VIS 05/03/09 mggan7Glvtw Note: ADMINISTER BY PN5Qoaxr Note: GIVEN BY EB6Qqtkn Note: GIVEN BY SG9Akvhb Note: GIVEN BY RK38Olesv Note: GIVEN BY SA94Tgmdfp Comment: [06/16/2013] Ordered by Cnwe22Hnxacj Comment: [08/22/2014] Ordered by Guhn13 Result Comment: [08/17/2014] Ordered by Iume95Wparjk Comment: [06/16/2013] Ordered by Ynag21Rixqc Note: VIS 10/13/0716Admin Note: GIVEN BY MT39Fnwhb Note: VIS 01/29/2011417443Vxdwi Note: GIVEN BY HX00Hibqr Note: GIVEN BY LN91Vnyvi Note: GIVEN BY IL08Sabtj Note: GIVEN BY KK98Tihhd Note: GIVEN BY BJ09Kcfeu Note: GIVEN BY CP42Wucdm Note: GIVEN BY JJ78Iikxh Note: GIVEN BY EL84Zvnha Note: GIVEN BY CO45Dnkxp Note: GIVEN BY IB59Yjysf Note: GIVEN BY CU91Ppxvt Note: GIVEN BY RN30 Admin Note: GIVEN BY MC72Zniqk Note: GIVEN BY RW75Rszun Note: GIVEN BY VO71Xtlaw Note: GIVEN BY ZO48Yjmxs Note: GIVEN BY BR15Wdxaf Note: GIVEN BY PQ09Ctpwo Note: GIVEN BY JI90Cejfp Note: GIVEN BY TX44Bhshr Note: GIVEN BY FK51Hehok Note: GIVEN BY RN Medications Adderall XR 10 mg oral capsule, extended release 1 capsule = 10 mg, By Mouth, Daily in AM, DX: ADHD, primarily inattentive Covering for PCP [place] PAT reviewed, # 30 capsule, 0 Refills, Maintenance, 02/04/22 17:32:00 EDT, ER Capsule, [facility] #[id number], Partial fill upon patient request if... Start [...]
--- OUTSIDE RECORDS SUMMARY | 2022-07-20 15:04 | XMS_ITS | Continuity of Care Document ---
:2002 Author Organization [facility] enter/[facility] Address [address] [place] [address]- Care Team Providers Name Role Phone Becka Berrios MD Primary Care Physician Encounter [facility] Date(s): 01/27/21 - 02/26/21 [facility] [address] [place] [address]- Allergies, Adverse Reactions, Alerts Substance Reaction Severity Status NKA Active Immunizations Given and Recorded Vaccine Date Status Refusal Reason hepatitis B adult vaccine 01/29/21 Given SARS-CoV-2 (COVID-19) mRNA BNT-162b2 vac 01/10/21 Recorde d influenza virus vaccine, inactivated 05/21/20 Given influenza [...] Given influenza virus vaccine, inactivated6 09/07/03 Given Meningococcal Conjugate Vaccine 07/20/18 Given Meningococcal Conjugate Vaccine7 06/16/13 Given Human Papillomavirus Vaccine 12/05/14 Given Human Papillomavirus Vaccine8 08/17/14 Given Human Papillomavirus Vaccine9 08/17/14 Given Human Papillomavirus Vaccine 06/08/14 Given tetanus/diphtheria/pertussis, acel(Tdap)10 06/16/13 Given Varicella Virus Yvxorap77 05/27/11 Given Varicella Virus Fwtnjqy56 04/04/03 Given influenza virus vaccine, live13 05/20/10 Given diphtheria/tetanus/pertussis, acel(DTaP)14 06/19/07 Given diphtheria/tetanus/pertussis, acel(DTaP)15 11/17/06 Given diphtheria/tetanus/pertussis, acel(DTaP)16 09/07/03 Given diphtheria/tetanus/pertussis, acel(DTaP)17 02 Given diphtheria/tetanus/pertussis, acel(DTaP)18 02 Given diphtheria/tetanus/pertussis, acel(DTaP)19 02 Given Hepatitis A Pediatric Mowpkik25 01/05/07 Given Hepatitis A Pediatric Glzszkc87 07/14/06 Given Hepatitis A Pediatric Shvesii05 05/14/06 Given Measles/Mumps/Rubella Virus Erjjole08 11/17/06 Given Measles/Mumps/Rubella Virus Wvmqpif41 04/04/03 Given Poliovirus Vaccine, Dhqngjtapie10 11/17/06 Given Poliovirus Vaccine, Hbtcuezrflp02 02 Given Poliovirus Vaccine, Fbtjkrjcica56 02 Given Poliovirus Vaccine, Qyxdhilubtc31 02 Given pneumococcal 7-valent ywdibvj93 09/07/03 Given pneumococcal 7-valent uhnarbi84 02 Given pneumococcal 7-valent sduojlw58 02 Given pneumococcal 7-valent 02 Given hepatitis B pediatric rzhelsy29 04/04/03 Given hepatitis B pediatric mzmxoxt88 02 Given hepatitis B pediatric ivmfcun31 02 Given hepatitis B pediatric ugcxjkv43 02 Given Haemophilus B conjugate (HbOC) ffsocfz94 04/04/03 Given Haemophilus B conjugate (HbOC) doyvezy36 02 Given Haemophilus B conjugate (HbOC) xnwpyln27 02 Given 1Result Comment: [06/16/2013] Ordered by Oyia4Nxuri Note: VIS 02/01/12 YQHWX6Fipoj Note: VIS 02/24/201178155Hzpeh Note: --VIS 05/03/09 JCDSU7Mcokz Note: VIS 05/03/09 kbbfu7Fkpcs Note: ADMINISTER BY WA6Wudmkw Comment: [06/16/2013] Ordered by Yash8 Result Comment: [08/22/2014] Ordered by Qyzb0Jappil Comment: [08/17/2014] Ordered by Srpp45Fwtexn Comment: [06/16/2013] Ordered by Djlm95Llevh Note: VIS 10/13/811 Admin Note: GIVEN BY VH14Hempn Note: VIS 01/29/2011684313Cesiz Note: GIVEN BY RN15 Admin Note: GIVEN BY JO99Rxjgq Note: GIVEN BY HQ08Jkoma Note: GIVEN BY NY83Eljie Note: GIVEN BY SR70Urphn Note: GIVEN BY HA45Ffjsz Note: GIVEN BY NA83Zhpwr Note: GIVEN BY QN07Juqhv Note: GIVEN BY RE31Lcccu Note: GIVEN BY XM52Iepue Note: GIVEN BY ZM19Okolm Note: GIVEN BY EA95Tifha Note: GIVEN BY YF07Zpibf Note: GIVEN BY EU40Rnjwv Note: GIVEN BY CW10Vqeph Note: GIVEN BY BX49Tqujw Note: GIVEN BY XH18Sztsw Note: GIVEN BY LN62Qeddc Note: GIVEN BY HS43Szgwy Note: GIVEN BY TT00Ebosb Note: GIVEN BY VM28Grgvc Note: GIVEN BY KC04Cfwga Note: GIVEN BY RN37 Admin Note: GIVEN BY IB71Lbjwf Note: GIVEN BY WV33Myyau Note: GIVEN BY RN Medications benzoyl peroxide [...] 2 Refills, Maintenance, 06/24/20 13:56:00 EST, Tablet, [facility] #[id number], Partial fill upon patient request, 1... Start [...]
--- OUTSIDE RECORDS SUMMARY | 2022-07-20 15:04 | XMS_ITS | Continuity of Care Document ---
:2002 Author Organization [facility] enter/[facility] Address Unavailable , Care Team Providers Name Role Phone Yash BRADFORD, Becka Chappell Primary Care Physician Encounter [facility] Date(s): 08/19/21 - 09/18/21 [facility] Allergies, Adverse Reactions, Alerts No Known Allergies [...] pediatric vaccine9 02 Given hepatitis B pediatric abmfuzl70 02 Given Meningococcal Conjugate Vaccine 07/20/18 Given Meningococcal Conjugate Sndqpla69 06/16/13 Given Human Papillomavirus Vaccine 12/05/14 Given Human Papillomavirus Iifnfdr62 08/17/14 Given Human Papillomavirus Cpwcgvv05 08/17/14 Given Human Papillomavirus Vaccine 06/08/14 Given tetanus/diphtheria/pertussis, acel(Tdap)14 06/16/13 Given Varicella Virus Qxofqko22 05/27/11 Given Varicella Virus Akkxnat58 04/04/03 Given influenza virus vaccine, live17 05/20/10 Given diphtheria/tetanus/pertussis, acel(DTaP)18 06/19/07 Given diphtheria/tetanus/pertussis, acel(DTaP)19 11/17/06 Given diphtheria/tetanus/pertussis, acel(DTaP)20 09/07/03 Given diphtheria/tetanus/pertussis, acel(DTaP)21 02 Given diphtheria/tetanus/pertussis, acel(DTaP)22 02 Given diphtheria/tetanus/pertussis, acel(DTaP)23 02 Given Hepatitis A Pediatric Hafwlwo52 01/05/07 Given Hepatitis A Pediatric Qjfbokk34 07/14/06 Given Hepatitis A Pediatric Tezqizn19 05/14/06 Given Measles/Mumps/Rubella Virus Grsnklc84 11/17/06 Given Measles/Mumps/Rubella Virus Dvytgpd82 04/04/03 Given Poliovirus Vaccine, Wtlpabvrwga05 11/17/06 Given Poliovirus Vaccine, Kweqqrwpftq91 02 Given Poliovirus Vaccine, Zggkltceedg57 02 Given Poliovirus Vaccine, Omjojdbovlj66 02 Given pneumococcal 7-valent 09/07/03 Given pneumococcal 7-valent qtibbgk39 02 Given pneumococcal 7-valent nkgffan52 02 Given pneumococcal 7-valent esclwvc93 02 Given Haemophilus B conjugate (HbOC) urjknts07 04/04/03 Given Haemophilus B conjugate (HbOC) 02 Given Haemophilus B conjugate (HbOC) 02 Given 1Result Comment: [06/16/2013] Ordered by Zmep2Qkkat Note: VIS 02/01/12 FDPOM0Mphau Note: VIS 02/24/201176179Obidq Note: --VIS 05/03/09 QKFVN1Lvqav Note: VIS 05/03/09 pciqt8Bqsux Note: ADMINISTER BY QW4Wlnfr Note: GIVEN BY CF5Upezt Note: GIVEN BY XU2Chaln Note: GIVEN BY JQ47Nethw Note: GIVEN BY CS85Bxjfow Comment: [06/16/2013] Ordered by Qkvp78Colomy Comment: [08/22/2014] Ordered by Guhn13 Result Comment: [08/17/2014] Ordered by Rlvp22Vlxbhe Comment: [06/16/2013] Ordered by Siyx29Ckhtf Note: VIS 10/13/0716Admin Note: GIVEN BY BV57Jnaqb Note: VIS 01/29/2011853328Werqc Note: GIVEN BY ML63Kmyda Note: GIVEN BY XY64Cdvlj Note: GIVEN BY OM12Apvrx Note: GIVEN BY AK69Zbgpq Note: GIVEN BY EQ58Tsosz Note: GIVEN BY OS25Mktlz Note: GIVEN BY YV88Edpvz Note: GIVEN BY IJ90Vanqe Note: GIVEN BY SI08Imcbi Note: GIVEN BY NZ84Iqpwz Note: GIVEN BY EU58Kqvhm Note: GIVEN BY RN30 Admin Note: GIVEN BY GI97Pllsn Note: GIVEN BY WE59Zufby Note: GIVEN BY YX40Eobgt Note: GIVEN BY TA49Jejjv Note: GIVEN BY WA71Vkqyg Note: GIVEN BY RX78Ytykj Note: GIVEN BY IR47Igggw Note: GIVEN BY WW37Jknvy Note: GIVEN BY HU98Wxhwc Note: GIVEN BY RN Medications benzoyl peroxide [...] 2 Refills, Maintenance, 06/24/20 13:56:00 EST, Tablet, [facility] #[id number], Partial fill upon patient request, 1... 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 Kath LawrenceEwwjjdso7Rxgqiu Psych: Clinician: Kath Peña Social History Social History Type Response Smoking Status Never (less than 100 in life time) entered on: 06/24/20 Sex
--- OUTSIDE RECORDS SUMMARY | 2022-07-20 15:04 | XMS_ITS | Continuity of Care Document ---
:2002 Author Organization [facility] enter/[facility] Address [address] [place] [address]- Care Team Providers Name Role Phone Becka Berrios MD Primary Care Physician [place] [facility] [place]s): 01/27/21 - 02/26/21 [facility] [address] [place] [address]- Allergies, Adverse Reactions, Alerts Substance Reaction Severity [...] Given tetanus/diphtheria/pertussis, acel(Tdap)10 06/16/13 Given Varicella Virus Izsbjpp19 05/27/11 Given Varicella Virus Kswavkb77 04/04/03 Given influenza virus vaccine, live13 05/20/10 Given diphtheria/tetanus/pertussis, acel(DTaP)14 06/19/07 Given diphtheria/tetanus/pertussis, acel(DTaP)15 11/17/06 Given diphtheria/tetanus/pertussis, acel(DTaP)16 09/07/03 Given diphtheria/tetanus/pertussis, acel(DTaP)17 02 Given diphtheria/tetanus/pertussis, acel(DTaP)18 02 Given diphtheria/tetanus/pertussis, acel(DTaP)19 02 Given Hepatitis A Pediatric Goaixmt48 01/05/07 Given Hepatitis A Pediatric Oazajhe17 07/14/06 Given Hepatitis A Pediatric Qlxrbla90 05/14/06 Given Measles/Mumps/Rubella Virus Sppcsxo23 11/17/06 Given Measles/Mumps/Rubella Virus Wnywrye53 04/04/03 Given Poliovirus Vaccine, Rwmvsttorce29 11/17/06 Given Poliovirus Vaccine, Ujigphacyig24 02 Given Poliovirus Vaccine, Zwlcxtjrrcw56 02 Given Poliovirus Vaccine, Fdsrxgqkmjj22 02 Given pneumococcal 7-valent wrxteil10 09/07/03 Given pneumococcal 7-valent 02 Given pneumococcal 7-valent 02 Given pneumococcal 7-valent machlpw08 02 Given hepatitis B pediatric jlyhhdp54 04/04/03 Given hepatitis B pediatric 02 Given hepatitis B pediatric isektps03 02 Given hepatitis B pediatric 02 Given Haemophilus B conjugate (HbOC) 04/04/03 Given Haemophilus B conjugate (HbOC) zgxdnaz07 02 Given Haemophilus B conjugate (HbOC) rfkvcbu28 02 Given 1Result Comment: [06/16/2013] Ordered by Pfsx4Ddhvl Note: VIS 02/01/12 MPGNL3Kscrk Note: VIS 02/24/201172501Modcy Note: --VIS 05/03/09 VAUTF8Ejxpq Note: VIS 05/03/09 dxkem2Epfet Note: ADMINISTER BY HM6Yehyew Comment: [06/16/2013] Ordered by Yash8 Result Comment: [08/22/2014] Ordered by Czzz6Wwqadt Comment: [08/17/2014] Ordered by Dplw67Tyajiz Comment: [06/16/2013] Ordered by Wvfj36Qcszf Note: VIS 10/13/811 Admin Note: GIVEN BY QJ65Rotvn Note: VIS 01/29/2011302933Zgamn Note: GIVEN BY RN15 Admin Note: GIVEN BY DE22Wamvp Note: GIVEN BY VD73Roxcx Note: GIVEN BY BE83Xpejc Note: GIVEN BY YZ64Bwmnw Note: GIVEN BY WS68Icvoh Note: GIVEN BY FC91Cerjm Note: GIVEN BY AS47Vskqa Note: GIVEN BY CQ45Ecvfy Note: GIVEN BY PC74Vuhah Note: GIVEN BY PX60Jcqyq Note: GIVEN BY UM99Isstw Note: GIVEN BY HM54Gyfyx Note: GIVEN BY ZK79Sqwyq Note: GIVEN BY OI90Vnrrz Note: GIVEN BY XH69Mroqh Note: GIVEN BY VG89Jymma Note: GIVEN BY KD04Wpdhb Note: GIVEN BY LE49Doaoj Note: GIVEN BY CS22Hfcgv Note: GIVEN BY CW97Jsdqg Note: GIVEN BY QB54Afoiw Note: GIVEN BY RN37 Admin Note: GIVEN BY GT52Bplrt Note: GIVEN BY HM92Uqicc Note: GIVEN BY RN Medications benzoyl peroxide [...] 2 Refills, Maintenance, 06/24/20 13:56:00 EST, Tablet, [facility] #[id number], Partial fill upon patient request, 1... Start [...]
--- OUTSIDE RECORDS SUMMARY | 2022-07-20 15:04 | XMS_ITS | Continuity of Care Document ---
:2002 Author Organization [facility] Address [address] [place] [address]- Care Team Providers Name Role Phone Yash BRADFORD, Becka Chappell Primary Care Physician Encounter [facility] Date(s): 11/21/20 - 01/26/21 [facility] [address] [place] [address]- Attending Physician: Becka Berrios MD Admitting Physician: Becka Berrios MD Allergies, Adverse Reactions, Alerts Substance Reaction Severity Status NKA Active Immunizations Given and Recorded Vaccine Date Status Refusal Reason SARS-CoV-2 (COVID-19) mRNA BNT-162b2 vac 01/10/21 Recorde [...] Given tetanus/diphtheria/pertussis, acel(Tdap)10 06/16/13 Given Varicella Virus Lqpryan43 05/27/11 Given Varicella Virus Olqlylh73 04/04/03 Given influenza virus vaccine, live13 05/20/10 Given diphtheria/tetanus/pertussis, acel(DTaP)14 06/19/07 Given diphtheria/tetanus/pertussis, acel(DTaP)15 11/17/06 Given diphtheria/tetanus/pertussis, acel(DTaP)16 09/07/03 Given diphtheria/tetanus/pertussis, acel(DTaP)17 02 Given diphtheria/tetanus/pertussis, acel(DTaP)18 02 Given diphtheria/tetanus/pertussis, acel(DTaP)19 02 Given Hepatitis A Pediatric Nzvcnnm37 01/05/07 Given Hepatitis A Pediatric Vrntftq16 07/14/06 Given Hepatitis A Pediatric Dvmuskp62 05/14/06 Given Measles/Mumps/Rubella Virus Ujyrljh76 11/17/06 Given Measles/Mumps/Rubella Virus Stvkgxf24 04/04/03 Given Poliovirus Vaccine, Ycltzczatqs69 11/17/06 Given Poliovirus Vaccine, Ruprvurqnta71 02 Given Poliovirus Vaccine, Ncdaheujspw60 02 Given Poliovirus Vaccine, Bgfnxhmpqnq88 02 Given pneumococcal 7-valent qzytbew08 09/07/03 Given pneumococcal 7-valent sypjfjn56 02 Given pneumococcal 7-valent 02 Given pneumococcal 7-valent ydclqgx12 02 Given hepatitis B pediatric 04/04/03 Given hepatitis B pediatric zuihjvw37 02 Given hepatitis B pediatric dliahiq22 02 Given hepatitis B pediatric enxgvxa35 02 Given Haemophilus B conjugate (HbOC) rtuhqgr72 04/04/03 Given Haemophilus B conjugate (HbOC) xjdpzko18 02 Given Haemophilus B conjugate (HbOC) tvmezki87 02 Given 1Result Comment: [06/16/2013] Ordered by Edjz2Iunaj Note: VIS 02/01/12 WIOYA9Dvekd Note: VIS 02/24/201182414Lxwqp Note: --VIS 05/03/09 SCYEB5Fxlkj Note: VIS 05/03/09 rsjow3Odgnk Note: ADMINISTER BY WH9Rhhzuu Comment: [06/16/2013] Ordered by Yash8 Result Comment: [08/22/2014] Ordered by Dxri4Qsgkbn Comment: [08/17/2014] Ordered by Zmsw10Phizgn Comment: [06/16/2013] Ordered by Gpsg12Ljwem Note: VIS 10/13/811 Admin Note: GIVEN BY DC05Tfjna Note: VIS 01/29/2011244419Aaund Note: GIVEN BY RN15 Admin Note: GIVEN BY FU66Turtl Note: GIVEN BY AO31Nzepb Note: GIVEN BY TF70Wcfmd Note: GIVEN BY BP82Rzeop Note: GIVEN BY XG15Xnmca Note: GIVEN BY DK40Gqxkv Note: GIVEN BY OI68Imswy Note: GIVEN BY WV26Ppcix Note: GIVEN BY XF36Dbovo Note: GIVEN BY GV95Kdzje Note: GIVEN BY KY93Lddbo Note: GIVEN BY YI11Vshde Note: GIVEN BY KC73Erouw Note: GIVEN BY MA56Uwzlb Note: GIVEN BY BE14Pspfe Note: GIVEN BY RV33Lpvqg Note: GIVEN BY UG33Sfmpi Note: GIVEN BY VV24Kqibb Note: GIVEN BY DD90Aivqt Note: GIVEN BY XT04Yszle Note: GIVEN BY UV81Saiio Note: GIVEN BY RN37 Admin Note: GIVEN BY NZ21Hvfos Note: GIVEN BY ZX59Qzykn Note: GIVEN BY RN Medications benzoyl peroxide [...] 2 Refills, Maintenance, 06/24/20 13:56:00 EST, Tablet, [facility][id number], Partial fill upon patient request, 1... 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 Kath LawrenceQrlrfahx8Dowxse Psych: Clinician: Kath Peña Vital Signs Most recent to oldest [Reference Range]: 1 Height 156 cm (12/27/20 8:11 AM) Social History Social History Type Response Smoking Status Never (less than 100 in life time) entered on: 06/24/20 Sex
--- OUTSIDE RECORDS SUMMARY | 2022-07-20 15:04 | XMS_ITS | Continuity of Care Document ---
:2002 Author Organization [facility] enter/[facility] Address [address] [place] [address]- Care Team Providers Name Role Phone Becka Berrios MD Primary Care Physician [place] [facility] [place] - 04/17/22 [facility] [address] [place] [address]- Allergies, Adverse Reactions, Alerts No Known Allergies [...] Meningococcal Conjugate Vaccine 07/20/18 Given Meningococcal Conjugate Jyixrne01 06/16/13 Given Human Papillomavirus Vaccine 12/05/14 Given Human Papillomavirus Xfiayjt99 08/17/14 Given Human Papillomavirus Epvzwsc18 08/17/14 Given Human Papillomavirus Vaccine 06/08/14 Given tetanus/diphtheria/pertussis, acel(Tdap)14 06/16/13 Given Varicella Virus Zoyjuxc10 05/27/11 Given Varicella Virus Dljyudk95 04/04/03 Given influenza virus vaccine, live17 05/20/10 Given diphtheria/tetanus/pertussis, acel(DTaP)18 06/19/07 Given diphtheria/tetanus/pertussis, acel(DTaP)19 11/17/06 Given diphtheria/tetanus/pertussis, acel(DTaP)20 09/07/03 Given diphtheria/tetanus/pertussis, acel(DTaP)21 02 Given diphtheria/tetanus/pertussis, acel(DTaP)22 02 Given diphtheria/tetanus/pertussis, acel(DTaP)23 02 Given Hepatitis A Pediatric Ifsjtsc22 01/05/07 Given Hepatitis A Pediatric Igzvonv14 07/14/06 Given Hepatitis A Pediatric Pduhmke83 05/14/06 Given Measles/Mumps/Rubella Virus Svnmfrx74 11/17/06 Given Measles/Mumps/Rubella Virus Dyxdcze82 04/04/03 Given Poliovirus Vaccine, Vdmfnciclkh94 11/17/06 Given Poliovirus Vaccine, Ppflnwawjoc67 02 Given Poliovirus Vaccine, Nvbfzpatzdt46 02 Given Poliovirus Vaccine, Lzrqwfyjzvw73 02 Given pneumococcal 7-valent 09/07/03 Given pneumococcal 7-valent kjfyehf80 02 Given pneumococcal 7-valent rfipyiu70 02 Given pneumococcal 7-valent opuxwln03 02 Given Haemophilus B conjugate (HbOC) koasjjt38 04/04/03 Given Haemophilus B conjugate (HbOC) ugtsndq99 02 Given Haemophilus B conjugate (HbOC) nefkpyg36 02 Given 1Result Comment: [06/16/2013] Ordered by Wwtb9Ludno Note: VIS 02/01/12 DIHQK6Aaqqh Note: VIS 02/24/201121145Wdgzz Note: --VIS 05/03/09 IZXMZ2Phpap Note: VIS 05/03/09 mhcbq4Mdzqj Note: ADMINISTER BY ZE4Yqiun Note: GIVEN BY KJ6Pdwgf Note: GIVEN BY FM6Ndzti Note: GIVEN BY VA38Amgok Note: GIVEN BY RP82Llwpvw Comment: [06/16/2013] Ordered by Wjho48Gvnpqs Comment: [08/22/2014] Ordered by Guhn13 Result Comment: [08/17/2014] Ordered by Jgnq18Tugzmv Comment: [06/16/2013] Ordered by Rgip76Mnexc Note: VIS 10/13/0716Admin Note: GIVEN BY TQ97Xdiyk Note: VIS 01/29/2011074644Amnjn Note: GIVEN BY SL41Fanjy Note: GIVEN BY QG76Irzqh Note: GIVEN BY JE58Rwrul Note: GIVEN BY AS96Wwypy Note: GIVEN BY AM93Gccxh Note: GIVEN BY AN74Pkgle Note: GIVEN BY SO65Vhili Note: GIVEN BY CP16Scopg Note: GIVEN BY LU04Doztm Note: GIVEN BY MY35Dshzy Note: GIVEN BY IX63Stjft Note: GIVEN BY RN30 Admin Note: GIVEN BY GU00Gxnmf Note: GIVEN BY TK43Ryszb Note: GIVEN BY IW73Rwkgw Note: GIVEN BY DH66Wzoiy Note: GIVEN BY LO37Fzbgg Note: GIVEN BY ZA36Fynik Note: GIVEN BY IZ26Bdkzw Note: GIVEN BY HQ67Hpzea Note: GIVEN BY IC13Hjoso Note: GIVEN BY RN Medications Adderall XR 10 mg oral capsule, extended release 1 capsule = 10 mg, By Mouth, Daily in AM, DX: ADHD, primarily inattentive, # 30 capsule, 0 Refills, Maintenance, 03/18/22 13:43:00 EDT, ER Capsule, [facility] #[id number], Partial fill upon patient request if the prescription is for a schedule II... 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 Kath LawrenceHnfklthz6Dnmolt Psych: Clinician: Kath Peña Social History Social History Type Response Smoking Status Never (less than 100 in life time) entered on: 06/24/20 Sex Care Team PersonnelName: Becka Berrios MD Address: [address] [place], [place] [address]-
--- OUTSIDE RECORDS SUMMARY | 2022-07-20 15:04 | XMS_ITS | Continuity of Care Document ---
:2002 Author Organization [facility] enter/[facility] [place] Address [address] [place] [address]- Care Team Providers Name Role Phone Becka Berrios MD Primary Care Physician Encounter [facility] [place] Date(s): 01/27/21 - 02/26/21 [facility] [address] [place] [address]- Allergies, Adverse Reactions, Alerts Substance Reaction Severity [...] Given tetanus/diphtheria/pertussis, acel(Tdap)10 06/16/13 Given Varicella Virus Lezwydz47 05/27/11 Given Varicella Virus Tztqcxx16 04/04/03 Given influenza virus vaccine, live13 05/20/10 Given diphtheria/tetanus/pertussis, acel(DTaP)14 06/19/07 Given diphtheria/tetanus/pertussis, acel(DTaP)15 11/17/06 Given diphtheria/tetanus/pertussis, acel(DTaP)16 09/07/03 Given diphtheria/tetanus/pertussis, acel(DTaP)17 02 Given diphtheria/tetanus/pertussis, acel(DTaP)18 02 Given diphtheria/tetanus/pertussis, acel(DTaP)19 02 Given Hepatitis A Pediatric Wozmtes13 01/05/07 Given Hepatitis A Pediatric Vfhaadm00 07/14/06 Given Hepatitis A Pediatric Zpliwbw31 05/14/06 Given Measles/Mumps/Rubella Virus Yrahark46 11/17/06 Given Measles/Mumps/Rubella Virus Potdkxc29 04/04/03 Given Poliovirus Vaccine, Ctsqrxldnkw65 11/17/06 Given Poliovirus Vaccine, Hhkxhxxwaxc74 02 Given Poliovirus Vaccine, Iljwytqetpr55 02 Given Poliovirus Vaccine, Elfauwfsfki67 02 Given pneumococcal 7-valent bzxjybc51 09/07/03 Given pneumococcal 7-valent jyqnyyw97 02 Given pneumococcal 7-valent mjxjaix72 02 Given pneumococcal 7-valent jybezyq41 02 Given hepatitis B pediatric kpaznhf94 04/04/03 Given hepatitis B pediatric idxhjhe48 02 Given hepatitis B pediatric 02 Given hepatitis B pediatric zeccten12 02 Given Haemophilus B conjugate (HbOC) 04/04/03 Given Haemophilus B conjugate (HbOC) 02 Given Haemophilus B conjugate (HbOC) xzidvih61 02 Given 1Result Comment: [06/16/2013] Ordered by Scmh3Gwzmr Note: VIS 02/01/12 FMKTH1Fttfy Note: VIS 02/24/201166547Xbntt Note: --VIS 05/03/09 QSPCE3Jsitm Note: VIS 05/03/09 uxkcq8Eqacl Note: ADMINISTER BY BW9Urbqto Comment: [06/16/2013] Ordered by Yash8 Result Comment: [08/22/2014] Ordered by Ufua8Xqibgr Comment: [08/17/2014] Ordered by Utnf93Afggkp Comment: [06/16/2013] Ordered by Jpho36Fzakd Note: VIS 10/13/811 Admin Note: GIVEN BY VC16Txiiq Note: VIS 01/29/2011539643Wetkp Note: GIVEN BY RN15 Admin Note: GIVEN BY OP07Fojoq Note: GIVEN BY XZ21Pgmvr Note: GIVEN BY DS38Xyqrq Note: GIVEN BY BB91Zftna Note: GIVEN BY PM31Zfmuj Note: GIVEN BY MY61Dgloo Note: GIVEN BY GQ00Fxokc Note: GIVEN BY JW69Zvhga Note: GIVEN BY YL94Kwuik Note: GIVEN BY HW09Egprs Note: GIVEN BY HN35Rmlwm Note: GIVEN BY TG82Ursyw Note: GIVEN BY OT83Dwbii Note: GIVEN BY KW03Ovhrb Note: GIVEN BY DR77Fywjs Note: GIVEN BY TQ72Jyvvo Note: GIVEN BY MJ71Yizkq Note: GIVEN BY WS10Ocqpn Note: GIVEN BY XM14Jbbuk Note: GIVEN BY NX27Lbqho Note: GIVEN BY KF46Qjhgf Note: GIVEN BY RN37 Admin Note: GIVEN BY RN41Byabu Note: GIVEN BY WZ43Xsrfp Note: GIVEN BY RN Medications benzoyl peroxide [...] 2 Refills, Maintenance, 06/24/20 13:56:00 EST, Tablet, [id number], Partial fill upon patient request, 1... Start [...]
--- OUTSIDE RECORDS SUMMARY | 2022-07-20 15:04 | XMS_ITS | Continuity of Care Document ---
:2002 Author Organization [facility] enter/[facility] [place] Address Unavailable , Care Team Providers Name Role Phone Becka Berrios MD Primary Care Physician Encounter [facility] [place] Date(s): 10/28/21 - 11/27/21 [facility] [place] Allergies, Adverse Reactions, Alerts No [...] Meningococcal Conjugate Vaccine 07/20/18 Given Meningococcal Conjugate Jktqqpq26 06/16/13 Given Human Papillomavirus Vaccine 12/05/14 Given Human Papillomavirus Lisvogn02 08/17/14 Given Human Papillomavirus Jsxsccs29 08/17/14 Given Human Papillomavirus Vaccine 06/08/14 Given tetanus/diphtheria/pertussis, acel(Tdap)14 06/16/13 Given Varicella Virus Bkyicuc38 05/27/11 Given Varicella Virus Dgqwtqj04 04/04/03 Given influenza virus vaccine, live17 05/20/10 Given diphtheria/tetanus/pertussis, acel(DTaP)18 06/19/07 Given diphtheria/tetanus/pertussis, acel(DTaP)19 11/17/06 Given diphtheria/tetanus/pertussis, acel(DTaP)20 09/07/03 Given diphtheria/tetanus/pertussis, acel(DTaP)21 02 Given diphtheria/tetanus/pertussis, acel(DTaP)22 02 Given diphtheria/tetanus/pertussis, acel(DTaP)23 02 Given Hepatitis A Pediatric Kzseltu06 01/05/07 Given Hepatitis A Pediatric Aeawcqx11 07/14/06 Given Hepatitis A Pediatric Czxekmr18 05/14/06 Given Measles/Mumps/Rubella Virus Cteuegf21 11/17/06 Given Measles/Mumps/Rubella Virus Wndwofs95 04/04/03 Given Poliovirus Vaccine, Mpnxmurktvl97 11/17/06 Given Poliovirus Vaccine, Fdbkugbeaod55 02 Given Poliovirus Vaccine, Wismrvmwiby19 02 Given Poliovirus Vaccine, Kalufoxtsfz23 02 Given pneumococcal 7-valent 09/07/03 Given pneumococcal 7-valent 02 Given pneumococcal 7-valent ujjttez91 02 Given pneumococcal 7-valent jecmbes40 02 Given Haemophilus B conjugate (HbOC) ouhpvoz93 04/04/03 Given Haemophilus B conjugate (HbOC) fqmwpym67 02 Given Haemophilus B conjugate (HbOC) ykgnbvh40 02 Given 1Result Comment: [06/16/2013] Ordered by Fxev5Uypjz Note: VIS 02/01/12 GPSGM3Xyddl Note: VIS 02/24/201130613Ptqft Note: --VIS 05/03/09 ZRZWX4Reohv Note: VIS 05/03/09 wkvlt7Ykkuw Note: ADMINISTER BY FM1Erqyf Note: GIVEN BY CJ6Uvyrw Note: GIVEN BY ZS7Elyym Note: GIVEN BY TO72Yurou Note: GIVEN BY WF98Jkqxrp Comment: [06/16/2013] Ordered by Lixo34Gxvlev Comment: [08/22/2014] Ordered by Guhn13 Result Comment: [08/17/2014] Ordered by Aggd38Xasjyw Comment: [06/16/2013] Ordered by Jenn04Dabxh Note: VIS 10/13/0716Admin Note: GIVEN BY MJ62Qzafp Note: VIS 01/29/2011412307Xldbz Note: GIVEN BY VC76Xodvc Note: GIVEN BY LZ50Eprye Note: GIVEN BY XY78Arvax Note: GIVEN BY JN30Xbixt Note: GIVEN BY ML53Qiazr Note: GIVEN BY VM23Yuunj Note: GIVEN BY CR59Wcguk Note: GIVEN BY FQ08Jlvan Note: GIVEN BY NB66Xtbrk Note: GIVEN BY FH71Htwbo Note: GIVEN BY QO01Rreuy Note: GIVEN BY RN30 Admin Note: GIVEN BY SN47Amyio Note: GIVEN BY XY76Ryxqe Note: GIVEN BY LJ67Ethlg Note: GIVEN BY UZ14Ogzrl Note: GIVEN BY JA39Iotpj Note: GIVEN BY FT56Hnbut Note: GIVEN BY LA41Lohwl Note: GIVEN BY PL29Ewgzb Note: GIVEN BY SI19Ojszo Note: GIVEN BY RN Medications 08/21 oral tablet 1 tablet, By Mouth, Daily, starting on the first day of the menstrual cycle. 3 month supply if allowed by insurance, # 84 tablet, 2 Refills, Maintenance, 06/24/20 13:56:00 EST, Tablet, [id number], Partial fill upon patient request, 1... 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 Kath LawrenceWxguxkie9Mqlptn Psych: Clinician: Kath Peña Social History Social History Type Response Smoking Status Never (less than 100 in life time) entered on: 06/24/20 Sex
--- OUTSIDE RECORDS SUMMARY | 2022-07-20 15:04 | XMS_ITS | Continuity of Care Document ---
:2002 Author Organization [facility] enter/[facility] [place] Address Unavailable , Care Team Providers Name Role Phone Becka Berrios MD Primary Care Physician Encounter [facility] Date(s): 11/10/21 - 12/10/21 [facility] [place] Allergies, Adverse Reactions, Alerts [...] pediatric vaccine9 02 Given hepatitis B pediatric jscoyex48 02 Given Meningococcal Conjugate Vaccine 07/20/18 Given Meningococcal Conjugate Eipopfj10 06/16/13 Given Human Papillomavirus Vaccine 12/05/14 Given Human Papillomavirus Vuvshee92 08/17/14 Given Human Papillomavirus Vqbgsjn47 08/17/14 Given Human Papillomavirus Vaccine 06/08/14 Given tetanus/diphtheria/pertussis, acel(Tdap)14 06/16/13 Given Varicella Virus Hbdelmq25 05/27/11 Given Varicella Virus Vfrsyic06 04/04/03 Given influenza virus vaccine, live17 05/20/10 Given diphtheria/tetanus/pertussis, acel(DTaP)18 06/19/07 Given diphtheria/tetanus/pertussis, acel(DTaP)19 11/17/06 Given diphtheria/tetanus/pertussis, acel(DTaP)20 09/07/03 Given diphtheria/tetanus/pertussis, acel(DTaP)21 02 Given diphtheria/tetanus/pertussis, acel(DTaP)22 02 Given diphtheria/tetanus/pertussis, acel(DTaP)23 02 Given Hepatitis A Pediatric Zktbahi82 01/05/07 Given Hepatitis A Pediatric Xpqbozj49 07/14/06 Given Hepatitis A Pediatric Ewmshfi57 05/14/06 Given Measles/Mumps/Rubella Virus Xssvycr29 11/17/06 Given Measles/Mumps/Rubella Virus Jvqnvnc45 04/04/03 Given Poliovirus Vaccine, Jrtgctkncft80 11/17/06 Given Poliovirus Vaccine, Qszxtclfesj72 02 Given Poliovirus Vaccine, Fsjtsmhmpuk31 02 Given Poliovirus Vaccine, Phgdnondoef33 02 Given pneumococcal 7-valent ahmhcon25 09/07/03 Given pneumococcal 7-valent 02 Given pneumococcal 7-valent xolpavv06 02 Given pneumococcal 7-valent 02 Given Haemophilus B conjugate (HbOC) puyqspb71 04/04/03 Given Haemophilus B conjugate (HbOC) fkahdmj69 02 Given Haemophilus B conjugate (HbOC) 02 Given 1Result Comment: [06/16/2013] Ordered by Vfzz6Fvcnr Note: VIS 02/01/12 RGPPP8Tlked Note: VIS 02/24/201136912Aoaib Note: --VIS 05/03/09 MYLSW4Airym Note: VIS 05/03/09 yhsqn8Xjeve Note: ADMINISTER BY LI4Adezk Note: GIVEN BY JO0Ujtyv Note: GIVEN BY AA8Jouqn Note: GIVEN BY NQ85Fxbmt Note: GIVEN BY TW13Kdolty Comment: [06/16/2013] Ordered by Ddmz67Btbrwg Comment: [08/22/2014] Ordered by Guhn13 Result Comment: [08/17/2014] Ordered by Gsnl98Ehwudb Comment: [06/16/2013] Ordered by Ynld97Hmobo Note: VIS 10/13/0716Admin Note: GIVEN BY LC98Azzgi Note: VIS 01/29/2011367124Haxdn Note: GIVEN BY TB15Ufdzj Note: GIVEN BY BF53Woowi Note: GIVEN BY RW99Dehqr Note: GIVEN BY LZ74Mrlli Note: GIVEN BY EI05Tcfwe Note: GIVEN BY KQ93Nsqsz Note: GIVEN BY KU34Utfgp Note: GIVEN BY OD81Iicxy Note: GIVEN BY EH36Nnzxn Note: GIVEN BY QQ86Gdacp Note: GIVEN BY MM33Xblnm Note: GIVEN BY RN30 Admin Note: GIVEN BY BN65Bqsxl Note: GIVEN BY EV04Ykabp Note: GIVEN BY IE96Fdgmw Note: GIVEN BY FN19Gtwah Note: GIVEN BY JF15Gqogl Note: GIVEN BY HF37Tmdbt Note: GIVEN BY ZE83Jtxzh Note: GIVEN BY RE42Fdjab Note: GIVEN BY TA90Wfdad Note: GIVEN BY RN Medications 08/21 oral tablet 1 tablet, By Mouth, Daily, starting on the first day of the menstrual cycle. 3 month supply if allowed by insurance, # 84 tablet, 2 Refills, Maintenance, 06/24/20 13:56:00 EST, [facility]t, [id number], Partial fill upon patient request, 1... 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 Kath LawrenceIswzjdvi0Eswetl Psych: Clinician: Kath Peña Social History Social History Type Response Smoking Status Never (less than 100 in life time) entered on: 06/24/20 Sex
--- OUTSIDE RECORDS SUMMARY | 2022-07-20 15:04 | XMS_ITS | Continuity of Care Document ---
:2002 Author Organization [facility] enter/[facility] Address Unavailable , Care Team Providers Name Role Phone Becka Berrios MD Primary Care Physician Encounter [facility] [place] Date(s): 01/09/22 - 02/08/22 [facility] Attending Physician: Janae Jackson Admitting Physician: Janae [...] pediatric vaccine9 02 Given hepatitis B pediatric jxofmpv12 02 Given Meningococcal Conjugate Vaccine 07/20/18 Given Meningococcal Conjugate Dxrarfo40 06/16/13 Given Human Papillomavirus Vaccine 5/6/15 Given Human Papillomavirus Ybptnzp85 08/17/14 Given Human Papillomavirus Oscxstz88 08/17/14 Given Human Papillomavirus Vaccine 06/08/14 Given tetanus/diphtheria/pertussis, acel(Tdap)14 06/16/13 Given Varicella Virus Smdddfz07 05/27/11 Given Varicella Virus Jmiqblf44 04/04/03 Given influenza virus vaccine, live17 05/20/10 Given diphtheria/tetanus/pertussis, acel(DTaP)18 06/19/07 Given diphtheria/tetanus/pertussis, acel(DTaP)19 11/17/06 Given diphtheria/tetanus/pertussis, acel(DTaP)20 09/07/03 Given diphtheria/tetanus/pertussis, acel(DTaP)21 02 Given diphtheria/tetanus/pertussis, acel(DTaP)22 02 Given diphtheria/tetanus/pertussis, acel(DTaP)23 02 Given Hepatitis A Pediatric Sdodedt25 01/05/07 Given Hepatitis A Pediatric Exirupm50 07/14/06 Given Hepatitis A Pediatric Plwuxcf26 05/14/06 Given Measles/Mumps/Rubella Virus Yeoumzo77 11/17/06 Given Measles/Mumps/Rubella Virus Gtcxlyr23 04/04/03 Given Poliovirus Vaccine, Xkbjdjyrouz16 11/17/06 Given Poliovirus Vaccine, Othwewsrxvk73 02 Given Poliovirus Vaccine, Ysufcwggjdr44 02 Given Poliovirus Vaccine, Icjxbspwwet41 02 Given pneumococcal 7-valent mnqztvy69 09/07/03 Given pneumococcal 7-valent xtehoqu60 02 Given pneumococcal 7-valent zeanapi92 02 Given pneumococcal 7-valent yjsdjlt90 02 Given Haemophilus B conjugate (HbOC) xjnqlwu93 04/04/03 Given Haemophilus B conjugate (HbOC) meejugh14 02 Given Haemophilus B conjugate (HbOC) illfjus83 02 Given 1Result Comment: [06/16/2013] Ordered by Servando Note: VIS 02/01/12 HEETK0Oaqxv Note: VIS 02/24/201199928Uffuu Note: --VIS 05/03/09 DGIYK2Ngjbq Note: VIS 05/03/09 sklyt0Aofoc Note: ADMINISTER BY ZN2Ixjsu Note: GIVEN BY UL9Spyhr Note: GIVEN BY UC8Fgnkb Note: GIVEN BY OH55Kjjgr Note: GIVEN BY IJ53Dkgpkp Comment: [06/16/2013] Ordered by Xbbl26Bocerz Comment: [08/22/2014] Ordered by Guhn13 Result Comment: [08/17/2014] Ordered by Dawa89Ozncmv Comment: [06/16/2013] Ordered by Bgbn36Lrtdu Note: VIS 10/13/0716Admin Note: GIVEN BY EK83Gmaxf Note: VIS 01/29/2011909437Lybnk Note: GIVEN BY ZP76Abdpp Note: GIVEN BY AC38Ciozr Note: GIVEN BY OD23Tnrkl Note: GIVEN BY WS50Mmucp Note: GIVEN BY ZO33Dhenl Note: GIVEN BY OF40Qbomm Note: GIVEN BY KE54Onazx Note: GIVEN BY RJ29Xlirn Note: GIVEN BY RT70Auplj Note: GIVEN BY FE87Flstg Note: GIVEN BY TC97Yecul Note: GIVEN BY RN30 Admin Note: GIVEN BY WK35Wbiyo Note: GIVEN BY WO95Ijwwo Note: GIVEN BY YB78Txjug Note: GIVEN BY ON52Sennu Note: GIVEN BY NQ47Xacmy Note: GIVEN BY BI46Ygiha Note: GIVEN BY QG35Ueupq Note: GIVEN BY LZ70Slhmh Note: GIVEN BY WO15Kjvjd Note: GIVEN BY RN Medications Adderall XR 10 mg oral capsule, extended release 1 capsule = 10 mg, By Mouth, Daily in AM, DX: ADHD, primarily inattentive Covering for PCP Mass PAT reviewed, # 30 capsule, 0 Refills, Maintenance, 02/04/22 17:32:00 EDT, ER Capsule, [facility][id number], Partial fill upon patient request if... 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 Kath LawrenceXjhwtibi9Yunpgy Psych: Clinician: Kath Peña Social History Social History Type Response Smoking Status Never (less than 100 in life time) entered on: 06/24/20 Sex
--- OUTSIDE RECORDS SUMMARY | 2022-07-20 15:04 | XMS_ITS | Continuity of Care Document ---
:2002 Author Organization [facility] enter/[facility] Address Unavailable , Care Team Providers Name Role Phone Becka Berrios MD Primary Care Physician En[place] [facility] [place] Date(s): 06/03/21 - 07/03/21 [facility] Attending Physician: Janae Jackson Admitting Physician: Janae Jackson Referring Physician: Janae Jackson Allergies, Adverse Reactions, Alerts Substance Reaction Severity [...] pediatric vaccine9 02 Given hepatitis B pediatric rbbomnq25 02 Given Meningococcal Conjugate Vaccine 07/20/18 Given Meningococcal Conjugate Isfvgny89 06/16/13 Given Human Papillomavirus Vaccine 12/05/14 Given Human Papillomavirus Vhlvhhw44 08/17/14 Given Human Papillomavirus Iedxugk57 08/17/14 Given Human Papillomavirus Vaccine 06/08/14 Given tetanus/diphtheria/pertussis, acel(Tdap)14 06/16/13 Given Varicella Virus Qrbxlld60 05/27/11 Given Varicella Virus Yllbcoe34 04/04/03 Given influenza virus vaccine, live17 05/20/10 Given diphtheria/tetanus/pertussis, acel(DTaP)18 06/19/07 Given diphtheria/tetanus/pertussis, acel(DTaP)19 11/17/06 Given diphtheria/tetanus/pertussis, acel(DTaP)20 09/07/03 Given diphtheria/tetanus/pertussis, acel(DTaP)21 02 Given diphtheria/tetanus/pertussis, acel(DTaP)22 02 Given diphtheria/tetanus/pertussis, acel(DTaP)23 02 Given Hepatitis A Pediatric Ouqenpq12 01/05/07 Given Hepatitis A Pediatric Anbrrbu17 07/14/06 Given Hepatitis A Pediatric Fsljksb21 05/14/06 Given Measles/Mumps/Rubella Virus Lwdzfkw01 11/17/06 Given Measles/Mumps/Rubella Virus Jcgxlyk45 04/04/03 Given Poliovirus Vaccine, Ikbhqxnmhat83 11/17/06 Given Poliovirus Vaccine, Nxptxlijbiw57 02 Given Poliovirus Vaccine, Tldmuymjzfb09 02 Given Poliovirus Vaccine, Nbdwoacsqoe96 02 Given pneumococcal 7-valent 09/07/03 Given pneumococcal 7-valent roqmkol40 02 Given pneumococcal 7-valent dtvagye51 02 Given pneumococcal 7-valent xhzcoaf72 02 Given Haemophilus B conjugate (HbOC) yvmrktf24 04/04/03 Given Haemophilus B conjugate (HbOC) ootaswg61 02 Given Haemophilus B conjugate (HbOC) 02 Given 1Result Comment: [06/16/2013] Ordered by Servando Note: VIS 02/01/12 YFUMX9Sgtuf Note: VIS 02/24/201181979Cvibo Note: --VIS 05/03/09 UKOAV1Trpkt Note: VIS 05/03/09 kwdqk2Iscyt Note: ADMINISTER BY VA4Uyxju Note: GIVEN BY XT4Ynfkl Note: GIVEN BY ZX4Henlg Note: GIVEN BY BE45Agphc Note: GIVEN BY AE27Sxatzg Comment: [06/16/2013] Ordered by Pzla27Nmbfze Comment: [08/22/2014] Ordered by Guhn13 Result Comment: [08/17/2014] Ordered by Roaj02Bcmrsf Comment: [06/16/2013] Ordered by Psem10Pbuqb Note: VIS 10/13/0716Admin Note: GIVEN BY WE13Qachg Note: VIS 01/29/2011860888Iydvq Note: GIVEN BY EC91Myspq Note: GIVEN BY AV71Zhpup Note: GIVEN BY UW05Dvlub Note: GIVEN BY GJ91Adtyq Note: GIVEN BY OS55Vwzog Note: GIVEN BY EM76Zqmfd Note: GIVEN BY RC10Rwpmu Note: GIVEN BY BT13Goyng Note: GIVEN BY LK57Mdmof Note: GIVEN BY XF02Rfxcn Note: GIVEN BY KY71Asgxu Note: GIVEN BY RN30 Admin Note: GIVEN BY GD41Qzbsl Note: GIVEN BY KQ10Cjacg Note: GIVEN BY PN74Madnz Note: GIVEN BY WV85Nlobt Note: GIVEN BY DV75Sixlv Note: GIVEN BY XU72Hflfh Note: GIVEN BY BW64Obkhj Note: GIVEN BY XF55Eemnt Note: GIVEN BY NY59Mryhr Note: GIVEN BY RN Medications benzoyl peroxide [...] hs Start Date: 08/07/15 Status: OrderedJunel Fe 1/20 oral tablet 1 tablet, By Mouth, Daily, starting on the first day of the menstrual cycle. 3 month supply if allowed by insurance, # 84 tablet, 2 Refills, Maintenance, 06/24/20 13:56:00 EST, Tablet, [facility][id number], Partial fill upon patient request, 1... Start [...]
--- OUTSIDE RECORDS SUMMARY | 2022-07-20 15:04 | XMS_ITS | Continuity of Care Document ---
:2002 Author Organization [facility] enter/[facility] [place] Address Unavailable , Care Team Providers Name Role Phone Becka Berrios MD Primary Care Physician Encounter [facility] [place] Date(s): 02/02/22 - 03/04/22 [facility] [place] Allergies, Adverse Reactions, Alerts [...] pediatric vaccine9 02 Given hepatitis B pediatric wejdsqn78 02 Given Meningococcal Conjugate Vaccine 07/20/18 Given Meningococcal Conjugate Hbxaxbv54 06/16/13 Given Human Papillomavirus Vaccine 12/05/14 Given Human Papillomavirus Gqxyskc10 08/17/14 Given Human Papillomavirus Nqjjidi33 08/17/14 Given Human Papillomavirus Vaccine 06/08/14 Given tetanus/diphtheria/pertussis, acel(Tdap)14 06/16/13 Given Varicella Virus Pdzucdp28 05/27/11 Given Varicella Virus Rceangv04 04/04/03 Given influenza virus vaccine, live17 05/20/10 Given diphtheria/tetanus/pertussis, acel(DTaP)18 06/19/07 Given diphtheria/tetanus/pertussis, acel(DTaP)19 11/17/06 Given diphtheria/tetanus/pertussis, acel(DTaP)20 09/07/03 Given diphtheria/tetanus/pertussis, acel(DTaP)21 02 Given diphtheria/tetanus/pertussis, acel(DTaP)22 02 Given diphtheria/tetanus/pertussis, acel(DTaP)23 02 Given Hepatitis A Pediatric Tprnzyv56 01/05/07 Given Hepatitis A Pediatric Fznofcs56 07/14/06 Given Hepatitis A Pediatric Kmbmwtr19 05/14/06 Given Measles/Mumps/Rubella Virus Wnmgngx52 11/17/06 Given Measles/Mumps/Rubella Virus Mxqfstg74 04/04/03 Given Poliovirus Vaccine, Peziwcqikzj53 11/17/06 Given Poliovirus Vaccine, Fwvgqvhbjdq32 02 Given Poliovirus Vaccine, Bduwzzlrsar53 02 Given Poliovirus Vaccine, Levrfhycqwn98 02 Given pneumococcal 7-valent vigxtdb09 09/07/03 Given pneumococcal 7-valent lnvjvbe65 02 Given pneumococcal 7-valent yyyggvo45 02 Given pneumococcal 7-valent 02 Given Haemophilus B conjugate (HbOC) ldqkesz23 04/04/03 Given Haemophilus B conjugate (HbOC) cknymvj33 02 Given Haemophilus B conjugate (HbOC) xndjyri75 02 Given 1Result Comment: [06/16/2013] Ordered by Servando Note: VIS 02/01/12 OOPVJ8Qgrzt Note: VIS 02/24/201147535Rqiur Note: --VIS 05/03/09 OTGID5Gquwk Note: VIS 05/03/09 rxsed6Vxpik Note: ADMINISTER BY JZ4Avxuk Note: GIVEN BY WJ5Gohkt Note: GIVEN BY LF8Wfnuj Note: GIVEN BY FV77Jleyx Note: GIVEN BY FN97Jjfbxt Comment: [06/16/2013] Ordered by Gikj52Jyxqzj Comment: [08/22/2014] Ordered by Guhn13 Result Comment: [08/17/2014] Ordered by Qpxx49Qnzjxb Comment: [06/16/2013] Ordered by Pusf70Voyio Note: VIS 10/13/0716Admin Note: GIVEN BY CM81Fqigv Note: VIS 01/29/2011567352Mhxzd Note: GIVEN BY OI66Ecvyq Note: GIVEN BY AZ46Ifbmr Note: GIVEN BY EW99Uucch Note: GIVEN BY YS21Rxmis Note: GIVEN BY FY01Pmixp Note: GIVEN BY IE12Wjtho Note: GIVEN BY FD21Mvnhz Note: GIVEN BY EJ37Fuaiw Note: GIVEN BY BV42Qmelt Note: GIVEN BY OC89Gtjbn Note: GIVEN BY TF29Vjprn Note: GIVEN BY RN30 Admin Note: GIVEN BY CO28Qwwxl Note: GIVEN BY IX05Zdzvt Note: GIVEN BY MK21Ahiyu Note: GIVEN BY EZ56Krqba Note: GIVEN BY LN10Ypvcf Note: GIVEN BY DS08Fqlay Note: GIVEN BY DV12Nrrys Note: GIVEN BY DE04Gyjtf Note: GIVEN BY BK33Dlroi Note: GIVEN BY RN Medications Adderall XR 10 mg oral capsule, extended release 1 capsule = 10 mg, By Mouth, Daily in AM, DX: ADHD, primarily inattentive Covering for PCP Mass PAT reviewed, # 30 capsule, 0 Refills, Maintenance, 02/04/22 17:32:00 EDT, ER Capsule, [facility][id number], Partial fill upon patient request if... Start [...]
--- OUTSIDE RECORDS SUMMARY | 2022-07-20 15:04 | XMS_ITS | Continuity of Care Document ---
:2002 Author Organization [facility] enter/[facility] Address Unavailable , Care Team Providers Name Role Phone Becka Berrios MD Primary Care Physician [place] [facility] [place](s): 11/06/21 - 12/06/21 [facility] [place] Allergies, Adverse Reactions, Alerts [...] Meningococcal Conjugate Vaccine 07/20/18 Given Meningococcal Conjugate Dhlxqpx88 06/16/13 Given Human Papillomavirus Vaccine 12/05/14 Given Human Papillomavirus Snoahfd01 08/17/14 Given Human Papillomavirus Vopsdwg43 08/17/14 Given Human Papillomavirus Vaccine 06/08/14 Given tetanus/diphtheria/pertussis, acel(Tdap)14 06/16/13 Given Varicella Virus Vygncpg54 05/27/11 Given Varicella Virus Wgdeusy58 04/04/03 Given influenza virus vaccine, live17 05/20/10 Given diphtheria/tetanus/pertussis, acel(DTaP)18 06/19/07 Given diphtheria/tetanus/pertussis, acel(DTaP)19 11/17/06 Given diphtheria/tetanus/pertussis, acel(DTaP)20 09/07/03 Given diphtheria/tetanus/pertussis, acel(DTaP)21 02 Given diphtheria/tetanus/pertussis, acel(DTaP)22 02 Given diphtheria/tetanus/pertussis, acel(DTaP)23 02 Given Hepatitis A Pediatric Dvmvwiy14 01/05/07 Given Hepatitis A Pediatric Zlwftli50 07/14/06 Given Hepatitis A Pediatric Hoegxgo22 05/14/06 Given Measles/Mumps/Rubella Virus Gweusem70 11/17/06 Given Measles/Mumps/Rubella Virus Nwmorwx61 04/04/03 Given Poliovirus Vaccine, Qixwcqkhdrb62 11/17/06 Given Poliovirus Vaccine, Kxzeajwmxtx91 02 Given Poliovirus Vaccine, Vzwcrboeuqj41 02 Given Poliovirus Vaccine, Sjmhtcrjodi24 02 Given pneumococcal 7-valent ofqrbew21 09/07/03 Given pneumococcal 7-valent jxkvkwu17 02 Given pneumococcal 7-valent evkzowl42 02 Given pneumococcal 7-valent 02 Given Haemophilus B conjugate (HbOC) yugpcwm64 04/04/03 Given Haemophilus B conjugate (HbOC) ifdtucm65 02 Given Haemophilus B conjugate (HbOC) lmuqpnm66 02 Given 1Result Comment: [06/16/2013] Ordered by Lgsh0Fuwha Note: VIS 02/01/12 NEOBT8Gaibj Note: VIS 02/24/201124681Dynet Note: --VIS 05/03/09 CKIAZ7Sgokm Note: VIS 05/03/09 bbhtv5Nmnwg Note: ADMINISTER BY WX1Bfrja Note: GIVEN BY RD5Wxnwr Note: GIVEN BY FZ9Oqrht Note: GIVEN BY FS11Izjii Note: GIVEN BY RX78Nlgfmv Comment: [06/16/2013] Ordered by Wnzp25Nyueyp Comment: [08/22/2014] Ordered by Guhn13 Result Comment: [08/17/2014] Ordered by Ilpl11Xjbdmy Comment: [06/16/2013] Ordered by Icwg66Vbztb Note: VIS 10/13/0716Admin Note: GIVEN BY CZ13Pzmua Note: VIS 01/29/2011432088Ekbvz Note: GIVEN BY YB66Zuntx Note: GIVEN BY XL94Vmdfj Note: GIVEN BY PY24Aqeql Note: GIVEN BY YM29Nkvyj Note: GIVEN BY SG02Yislr Note: GIVEN BY AC55Isram Note: GIVEN BY KC31Yobje Note: GIVEN BY DZ42Oqros Note: GIVEN BY QN36Oeyof Note: GIVEN BY BV85Irawv Note: GIVEN BY XJ45Intyy Note: GIVEN BY RN30 Admin Note: GIVEN BY VL72Kdhha Note: GIVEN BY NX47Azoqg Note: GIVEN BY SR02Hskze Note: GIVEN BY EE64Fnkfg Note: GIVEN BY UI55Pulre Note: GIVEN BY EH95Shzhm Note: GIVEN BY LE06Wwrye Note: GIVEN BY GQ28Slrog Note: GIVEN BY YL64Iwuzb Note: GIVEN BY RN Medications 08/21 oral tablet 1 tablet, By Mouth, Daily, starting on the first day of the menstrual cycle. 3 month supply if allowed by insurance, # 84 tablet, 2 Refills, Maintenance, 06/24/20 13:56:00 EST, [id number] Partial fill upon patient request, 1... 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 Kath LawrenceLfuijggr3Vvsoyd Psych: Clinician: Kath Peña Social History Social History Type Response Smoking Status Never (less than 100 in life time) entered on: 06/24/20 Sex
--- OUTSIDE RECORDS SUMMARY | 2022-07-20 15:04 | XMS_ITS | Continuity of Care Document ---
:2002 Author Organization [facility] enter/[facility] Address Unavailable , Care Team Providers Name Role Phone Becka Berrios MD Primary Care Physician Encounter [facility] [place] Date(s): 02/28/21 - 03/30/21 [facility] Attending Physician: Janae Jackson Admitting Physician: Janae Jackson Referring Physician: Janae Jackson Allergies, Adverse Reactions, Alerts Substance Reaction Severity Status NKA Active Immunizations Given and Recorded Vaccine Date Status Refusal Reason SARS-CoV-2 (COVID-19) mRNA BNT-162b2 vac 02/28/21 Given SARS-CoV-2 (COVID-19) mRNA BNT-162b2 vac 01/10/21 Recorde d hepatitis B pediatric vaccine 02/28/21 Given hepatitis B pediatric vaccine1 04/04/03 Given hepatitis B pediatric vaccine2 02 Given hepatitis B pediatric vaccine3 02 Given hepatitis B pediatric vaccine4 02 Given hepatitis B adult vaccine 01/29/21 Given influenza virus vaccine, inactivated 05/21/20 Given influenza virus vaccine, inactivated 08/09/19 Recorded influenza virus vaccine, inactivated 07/20/18 Given influenza virus vaccine, inactivated 09/28/16 Given influenza virus vaccine, inactivated 08/07/15 Given influenza virus vaccine, inactivated 06/08/14 Given influenza virus vaccine, inactivated5 06/16/13 Given influenza virus vaccine, inactivated6 05/11/12 Given influenza virus vaccine, inactivated7 05/27/11 Given influenza virus vaccine, inactivated8 07/31/09 Given influenza virus vaccine, inactivated9 06/18/09 Given influenza virus vaccine, ckpxwtmmoxe38 09/07/03 Given Meningococcal Conjugate Vaccine 07/20/18 Given Meningococcal Conjugate Oepggbb11 06/16/13 Given Human Papillomavirus Vaccine 12/05/14 Given Human Papillomavirus Ekbuuqj43 08/17/14 Given Human Papillomavirus Bbzyrrp05 08/17/14 Given Human Papillomavirus Vaccine 06/08/14 Given tetanus/diphtheria/pertussis, acel(Tdap)14 06/16/13 Given Varicella Virus Zvpvnux78 05/27/11 Given Varicella Virus Pxcvfbg34 04/04/03 Given influenza virus vaccine, live17 05/20/10 Given diphtheria/tetanus/pertussis, acel(DTaP)18 06/19/07 Given diphtheria/tetanus/pertussis, acel(DTaP)19 11/17/06 Given diphtheria/tetanus/pertussis, acel(DTaP)20 09/07/03 Given diphtheria/tetanus/pertussis, acel(DTaP)21 02 Given diphtheria/tetanus/pertussis, acel(DTaP)22 02 Given diphtheria/tetanus/pertussis, acel(DTaP)23 02 Given Hepatitis A Pediatric Osyaoxd93 01/05/07 Given Hepatitis A Pediatric Ujabcyb96 07/14/06 Given Hepatitis A Pediatric Tjhgyww41 05/14/06 Given Measles/Mumps/Rubella Virus Nzqfnxh17 11/17/06 Given Measles/Mumps/Rubella Virus Rxtwgvp38 04/04/03 Given Poliovirus Vaccine, Xpbrsmcvhzb19 11/17/06 Given Poliovirus Vaccine, Agfwpvpyntz74 02 Given Poliovirus Vaccine, Pkvakbsuxrt85 02 Given Poliovirus Vaccine, Gurewkwbely55 02 Given pneumococcal 7-valent dxululi95 09/07/03 Given pneumococcal 7-valent xcistwb10 02 Given pneumococcal 7-valent 02 Given pneumococcal 7-valent 02 Given Haemophilus B conjugate (HbOC) zaabwsc71 04/04/03 Given Haemophilus B conjugate (HbOC) aozcles83 02 Given Haemophilus B conjugate (HbOC) edigmdu64 02 Given 1Admin Note: GIVEN BY VT4Cxujj Note: GIVEN BY XA1Cnimp Note: GIVEN BY PU7Nmhjd Note: GIVEN BY OJ6Uenijg Comment: [06/16/2013] Ordered by Mnhj6Mdkfr Note: VIS 02/01/12 UOFFP5Nwxsk Note: VIS 02/24/201159625Dtdin Note: --VIS 05/03/09 TDGGX7Shdfn Note: VIS 05/03/09 sqbec16Abyss Note: ADMINISTER BY RZ32Sqpjje Comment: [06/16/2013] Ordered by Cbtq80Gacaep Comment: [08/22/2014] Ordered by Guhn13 Result Comment: [08/17/2014] Ordered by Mrsy60Jayfop Comment: [06/16/2013] Ordered by Zsfh66Wxwbp Note: VIS 10/13/0716Admin Note: GIVEN BY EA51Blxlb Note: VIS 01/29/2011030362Eaazl Note: GIVEN BY QS52Txclu Note: GIVEN BY LU18Iaewh Note: GIVEN BY NS32Wibjm Note: GIVEN BY TF17Updxr Note: GIVEN BY QJ72Stvnt Note: GIVEN BY QC18Uvmtj Note: GIVEN BY MC84Zvvrl Note: GIVEN BY XW23Rbnrf Note: GIVEN BY AS66Nlhyf Note: GIVEN BY BH69Uuzre Note: GIVEN BY LK95Nvkxd Note: GIVEN BY RN30 Admin Note: GIVEN BY DM15Cmbcs Note: GIVEN BY FJ30Siqbc Note: GIVEN BY EC22Dtuul Note: GIVEN BY GR29Qjrim Note: GIVEN BY QN37Wctyw Note: GIVEN BY TK40Bmrer Note: GIVEN BY QU88Shace Note: GIVEN BY XC64Awoxg Note: GIVEN BY DY10Mlmip Note: GIVEN BY RN Medications benzoyl peroxide [...] 2 Refills, Maintenance, 06/24/20 13:56:00 EST, Tablet, [id number], Partial fill upon patient request, 1... 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 Kath LawrenceMrdaovnn4Ltpife Psych: Clinician: Kath Peña Social History Social History Type Response Smoking Status Never (less than 100 in life time) entered on: 06/24/20 Sex
--- OUTSIDE RECORDS SUMMARY | 2022-07-20 15:04 | XMS_ITS | Continuity of Care Document ---
:2002 Author Organization [facility] enter/[facility] Address Unavailable , Care Team Providers Name Role Phone Becka Berrios MD Primary Care Physician Encounter [facility] Date(s): 11/06/21 - 12/06/21 [facility] [place] Allergies, Adverse Reactions, Alerts No [...] Meningococcal Conjugate Vaccine 07/20/18 Given Meningococcal Conjugate Bpzqiau86 06/16/13 Given Human Papillomavirus Vaccine 12/05/14 Given Human Papillomavirus Xepomva79 08/17/14 Given Human Papillomavirus Hllndmb83 08/17/14 Given Human Papillomavirus Vaccine 06/08/14 Given tetanus/diphtheria/pertussis, acel(Tdap)14 06/16/13 Given Varicella Virus Atfajvl23 05/27/11 Given Varicella Virus Tjmyqsq02 04/04/03 Given influenza virus vaccine, live17 05/20/10 Given diphtheria/tetanus/pertussis, acel(DTaP)18 06/19/07 Given diphtheria/tetanus/pertussis, acel(DTaP)19 11/17/06 Given diphtheria/tetanus/pertussis, acel(DTaP)20 09/07/03 Given diphtheria/tetanus/pertussis, acel(DTaP)21 02 Given diphtheria/tetanus/pertussis, acel(DTaP)22 02 Given diphtheria/tetanus/pertussis, acel(DTaP)23 02 Given Hepatitis A Pediatric Myuofbl72 01/05/07 Given Hepatitis A Pediatric Gckcqhu49 07/14/06 Given Hepatitis A Pediatric Vcweslu79 05/14/06 Given Measles/Mumps/Rubella Virus Icnbyut05 11/17/06 Given Measles/Mumps/Rubella Virus Niyylcq14 04/04/03 Given Poliovirus Vaccine, Lzzbnezxymn39 11/17/06 Given Poliovirus Vaccine, Vjxtfklazxc98 02 Given Poliovirus Vaccine, Hfoialhxsnr11 02 Given Poliovirus Vaccine, Wwhbhwzmuhr35 02 Given pneumococcal 7-valent tzteqah65 09/07/03 Given pneumococcal 7-valent bgmekke34 02 Given pneumococcal 7-valent ikvlgew92 02 Given pneumococcal 7-valent 02 Given Haemophilus B conjugate (HbOC) knejbai39 04/04/03 Given Haemophilus B conjugate (HbOC) xmvobsc29 02 Given Haemophilus B conjugate (HbOC) 02 Given 1Result Comment: [06/16/2013] Ordered by Gjkd0Loysg Note: VIS 02/01/12 CBQIX5Ihwsl Note: VIS 02/24/201136761Hersq Note: --VIS 05/03/09 LOHXI6Rcivs Note: VIS 05/03/09 ztifr0Qnnvm Note: ADMINISTER BY LF8Vmdye Note: GIVEN BY NL4Llxfy Note: GIVEN BY HV6Eupzi Note: GIVEN BY GN19Ktwew Note: GIVEN BY VU87Sdjpwe Comment: [06/16/2013] Ordered by Xccf48Uxtakx Comment: [08/22/2014] Ordered by Guhn13 Result Comment: [08/17/2014] Ordered by Xjxo39Nvsidq Comment: [06/16/2013] Ordered by Gxyo45Gbwlt Note: VIS 10/13/0716Admin Note: GIVEN BY OO55Hqyme Note: VIS 01/29/2011844548Vnybm Note: GIVEN BY VX41Zbpdt Note: GIVEN BY JB47Pppaf Note: GIVEN BY JQ26Oyvlc Note: GIVEN BY OF59Peaop Note: GIVEN BY MF38Pvhph Note: GIVEN BY VM76Lqvni Note: GIVEN BY JH71Mgkpr Note: GIVEN BY IP22Aadzw Note: GIVEN BY ZA66Nsasa Note: GIVEN BY MB91Rumko Note: GIVEN BY WJ61Fllqd Note: GIVEN BY RN30 Admin Note: GIVEN BY TW82Jmpsk Note: GIVEN BY BS65Kzeyg Note: GIVEN BY YY03Foxmf Note: GIVEN BY IP55Njjxs Note: GIVEN BY EQ00Kyauw Note: GIVEN BY AQ76Hirvz Note: GIVEN BY UC20Qnueu Note: GIVEN BY XJ56Dymmm Note: GIVEN BY NU66Pfwwq Note: GIVEN BY RN Medications 08/21 oral tablet 1 tablet, By Mouth, Daily, starting on the first day of the menstrual cycle. 3 month supply if allowed by insurance, # 84 tablet, 2 Refills, Maintenance, 06/24/20 13:56:00 EST, [id number], Partial fill upon patient request, 1... 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 Kath LawrenceOhzziiqb6Onghfh Psych: Clinician: Kath Peña Social History Social History Type Response Smoking Status Never (less than 100 in life time) entered on: 06/24/20 Sex
--- OUTSIDE RECORDS SUMMARY | 2022-07-20 15:04 | XMS_ITS | Continuity of Care Document ---
:2002 Author Organization [facility] Address [address] [place] [address]- Care Team Providers Name Role Phone Becka Berrios MD Primary Care Physician Encounter [facility] [place] Date(s): 08/09/19 - 08/19/19 [facility]/[address] [address]- [facility] Attending Physician: Janae Jackson Admitting Physician: AdmJanae rebolledo Referring Physician: AdmtrJanae Allergies, Adverse Reactions, Alerts Substance Reaction Severity Status NKA Active Immunizations Given and Recorded Vaccine Date Status Refusal Reason influenza virus vaccine, inactivated 08/09/19 Recorded influenza [...] Given tetanus/diphtheria/pertussis, acel(Tdap)10 06/16/13 Given Varicella Virus Hdghkjy03 05/27/11 Given Varicella Virus Bkqkvge56 04/04/03 Given influenza virus vaccine, live13 05/20/10 Given diphtheria/tetanus/pertussis, acel(DTaP)14 06/19/07 Given diphtheria/tetanus/pertussis, acel(DTaP)15 11/17/06 Given diphtheria/tetanus/pertussis, acel(DTaP)16 09/07/03 Given diphtheria/tetanus/pertussis, acel(DTaP)17 02 Given diphtheria/tetanus/pertussis, acel(DTaP)18 02 Given diphtheria/tetanus/pertussis, acel(DTaP)19 02 Given Hepatitis A Pediatric Tlwmsbv52 01/05/07 Given Hepatitis A Pediatric Mqxafws67 07/14/06 Given Hepatitis A Pediatric Mujiegw43 05/14/06 Given Measles/Mumps/Rubella Virus Tqxhslf69 11/17/06 Given Measles/Mumps/Rubella Virus Zuruhxo14 04/04/03 Given Poliovirus Vaccine, Ekaumjdacrz48 11/17/06 Given Poliovirus Vaccine, Bihaosblrqo37 02 Given Poliovirus Vaccine, Wzlrbtmdgye45 02 Given Poliovirus Vaccine, Qkegjxnagad48 02 Given pneumococcal 7-valent roizebb02 09/07/03 Given pneumococcal 7-valent mxdliuj82 02 Given pneumococcal 7-valent ionribw62 02 Given pneumococcal 7-valent abbniqk99 02 Given hepatitis B pediatric mtvexuj80 04/04/03 Given hepatitis B pediatric xuomouo03 02 Given hepatitis B pediatric kpqckoz81 02 Given hepatitis B pediatric texyvgq16 02 Given Haemophilus B conjugate (HbOC) hiqpqnj66 04/04/03 Given Haemophilus B conjugate (HbOC) gburxit44 02 Given Haemophilus B conjugate (HbOC) 02 Given 1Result Comment: [06/16/2013] Ordered by Kgkz1Rhweb Note: VIS 02/01/12 DQUXK2Aqblz Note: VIS 02/24/201169950Lkgsg Note: --VIS 05/03/09 LXPOS8Yithy Note: VIS 05/03/09 virdr1Lughy Note: ADMINISTER BY TG7Vfupwg Comment: [06/16/2013] Ordered by Yash8 Result Comment: [08/22/2014] Ordered by Udmb2Tjzkhu Comment: [08/17/2014] Ordered by Bprb03Jywlsa Comment: [06/16/2013] Ordered by Aisc89Uwneb Note: VIS 10/13/811 Admin Note: GIVEN BY DM20Tbevr Note: VIS 01/29/2011215938Mzfoh Note: GIVEN BY RN15 Admin Note: GIVEN BY US07Woxkn Note: GIVEN BY IE55Jbwpo Note: GIVEN BY US95Fmize Note: GIVEN BY FM54Dzvtu Note: GIVEN BY CJ15Oesig Note: GIVEN BY XZ53Dywro Note: GIVEN BY HS09Thett Note: GIVEN BY MC20Zfnxm Note: GIVEN BY KN44Oimsx Note: GIVEN BY OW91Huams Note: GIVEN BY NL87Ejaim Note: GIVEN BY BS62Bszyd Note: GIVEN BY NM24Gnwae Note: GIVEN BY CU05Dcoyk Note: GIVEN BY NN51Nwity Note: GIVEN BY BO64Owaja Note: GIVEN BY HV06Vzlow Note: GIVEN BY PA79Ezven Note: GIVEN BY GC46Bbrwv Note: GIVEN BY SA24Xkdcr Note: GIVEN BY ZF98Lbxkc Note: GIVEN BY RN37 Admin Note: GIVEN BY WR36Vhhie Note: GIVEN BY RF54Qbwws Note: GIVEN BY RN Medications benzoyl peroxide [...] acne at hs Start Date: 08/07/15 Status: Ordered Problem List Condition Effective Dates Status Health Status Informant 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 Kath Bowers Psych: Clinician: Kath Peña Social History Social History Type Response Smoking Status Never smoker; Tobacco user i n household: No entered on: 1/6/16 Sex
--- OUTSIDE RECORDS SUMMARY | 2022-07-20 15:05 | XMS_ITS | Continuity of Care Document ---
:2002 Author Organization [facility] Address [address] [place] [address]- Care Team Providers Name Role Phone Becka Berrios MD Primary Care Physician Encounter [facility] Date(s): 08/22/19 - 08/29/[address] [address]- [facility] Attending Physician: Becka Berrios MD Allergies, Adverse Reactions, [...] Given tetanus/diphtheria/pertussis, acel(Tdap)10 06/16/13 Given Varicella Virus Nzrahaa56 05/27/11 Given Varicella Virus Zmnpfvo04 04/04/03 Given influenza virus vaccine, live13 05/20/10 Given diphtheria/tetanus/pertussis, acel(DTaP)14 06/19/07 Given diphtheria/tetanus/pertussis, acel(DTaP)15 11/17/06 Given diphtheria/tetanus/pertussis, acel(DTaP)16 09/07/03 Given diphtheria/tetanus/pertussis, acel(DTaP)17 02 Given diphtheria/tetanus/pertussis, acel(DTaP)18 02 Given diphtheria/tetanus/pertussis, acel(DTaP)19 02 Given Hepatitis A Pediatric Nywcmkn69 01/05/07 Given Hepatitis A Pediatric Xlcjsyf72 07/14/06 Given Hepatitis A Pediatric Efhfpkf54 05/14/06 Given Measles/Mumps/Rubella Virus Mlwmpgh59 11/17/06 Given Measles/Mumps/Rubella Virus Xufjqks07 04/04/03 Given Poliovirus Vaccine, Qfbuxfgvtlf96 11/17/06 Given Poliovirus Vaccine, Zehwhtonkus70 02 Given Poliovirus Vaccine, Jzrkmzzdqsx18 02 Given Poliovirus Vaccine, Acwsssgvaoj07 02 Given pneumococcal 7-valent hikggox69 09/07/03 Given pneumococcal 7-valent 02 Given pneumococcal 7-valent eqjtvvp62 02 Given pneumococcal 7-valent adipyfs27 02 Given hepatitis B pediatric zhejult21 04/04/03 Given hepatitis B pediatric tpjypqu26 02 Given hepatitis B pediatric duyjtxu86 02 Given hepatitis B pediatric tbayxfq26 02 Given Haemophilus B conjugate (HbOC) drhuaxv61 04/04/03 Given Haemophilus B conjugate (HbOC) jsydxga18 02 Given Haemophilus B conjugate (HbOC) eaksfhg23 02 Given 1Result Comment: [06/16/2013] Ordered by Mpgq6Oswqz Note: VIS 02/01/12 MRHDT6Iqcye Note: VIS 02/24/201181905Omest Note: --VIS 05/03/09 YOMJV8Jkfpc Note: VIS 05/03/09 krezk9Wypby Note: ADMINISTER BY FN3Nttnmz Comment: [06/16/2013] Ordered by Yash8 Result Comment: [08/22/2014] Ordered by Ptoy7Yyuocf Comment: [08/17/2014] Ordered by Capt71Myywsv Comment: [06/16/2013] Ordered by Ozwk56Kmroo Note: VIS 10/13/811 Admin Note: GIVEN BY JR93Oojso Note: VIS 01/29/2011325486Ronik Note: GIVEN BY RN15 Admin Note: GIVEN BY DA23Tyvuo Note: GIVEN BY QU37Kbuul Note: GIVEN BY SV68Tdgfc Note: GIVEN BY TG19Flcxu Note: GIVEN BY FM50Wswfp Note: GIVEN BY XF80Ecsmc Note: GIVEN BY OF81Nycwz Note: GIVEN BY MY40Mcucy Note: GIVEN BY BV56Imktj Note: GIVEN BY TV38Kjwws Note: GIVEN BY NQ55Sikfg Note: GIVEN BY VA46Oifwl Note: GIVEN BY AM13Lysgt Note: GIVEN BY SM33Lxczh Note: GIVEN BY KF83Prnty Note: GIVEN BY FQ96Qjejd Note: GIVEN BY MI18Ykmal Note: GIVEN BY PP80Asrcg Note: GIVEN BY GT69Svttj Note: GIVEN BY SK69Otlwo Note: GIVEN BY EQ67Jfxlx Note: GIVEN BY RN37 Admin Note: GIVEN BY YW32Eobds Note: GIVEN BY KQ92Umhbg Note: GIVEN BY RN Medications benzoyl peroxide [...] user i n household: No entered on: 08/07/15 Sex
--- OUTSIDE RECORDS SUMMARY | 2022-07-20 15:05 | XMS_ITS | Continuity of Care Document ---
:2002 Author Organization [facility] enter/[facility] Address [address] [place] [address]- Care Team Providers Name Role Phone Becka Berrios MD Primary Care Physician Encounter [facility] Date(s): 06/24/20 - 07/24/20 [facility] [address] [place] [address]- Attending Physician: AdmJanae rebolledo Admitting Physician: AdmtrJanae Referring Physician: Admtr, Ar8 Allergies, Adverse Reactions, Alerts Substance Reaction Severity Status NKA Active Immunizations Given and Recorded Vaccine Date Status Refusal Reason influenza virus vaccine, inactivated 05/21/20 Given influenza [...] Given tetanus/diphtheria/pertussis, acel(Tdap)10 06/16/13 Given Varicella Virus Jqpnban47 05/27/11 Given Varicella Virus Obmsngf37 04/04/03 Given influenza virus vaccine, live13 05/20/10 Given diphtheria/tetanus/pertussis, acel(DTaP)14 06/19/07 Given diphtheria/tetanus/pertussis, acel(DTaP)15 11/17/06 Given diphtheria/tetanus/pertussis, acel(DTaP)16 09/07/03 Given diphtheria/tetanus/pertussis, acel(DTaP)17 02 Given diphtheria/tetanus/pertussis, acel(DTaP)18 02 Given diphtheria/tetanus/pertussis, acel(DTaP)19 02 Given Hepatitis A Pediatric Gmpfiak50 01/05/07 Given Hepatitis A Pediatric Mumzmmy90 07/14/06 Given Hepatitis A Pediatric Fqjsicj37 05/14/06 Given Measles/Mumps/Rubella Virus Fvcuzaw99 11/17/06 Given Measles/Mumps/Rubella Virus Bzflwha57 04/04/03 Given Poliovirus Vaccine, Lhvmbiirhfq51 11/17/06 Given Poliovirus Vaccine, Aqwlrzdtdst41 02 Given Poliovirus Vaccine, Euzkyosgkty11 02 Given Poliovirus Vaccine, Pzvqhwtlbbd13 02 Given pneumococcal 7-valent moiogid45 09/07/03 Given pneumococcal 7-valent wcryvjk52 02 Given pneumococcal 7-valent legjslk77 02 Given pneumococcal 7-valent mwimukv94 02 Given hepatitis B pediatric 04/04/03 Given hepatitis B pediatric deppcha80 02 Given hepatitis B pediatric iuabkrr05 02 Given hepatitis B pediatric aarwhnx87 02 Given Haemophilus B conjugate (HbOC) urlqelj70 04/04/03 Given Haemophilus B conjugate (HbOC) bjyvdhl39 02 Given Haemophilus B conjugate (HbOC) yjrpkxv72 02 Given 1Result Comment: [06/16/2013] Ordered by Lruu9Ydarg Note: VIS 02/01/12 VPBXM9Fkmnc Note: VIS 02/24/201162260Foxgr Note: --VIS 05/03/09 CQSVD3Kfsxf Note: VIS 05/03/09 wypmb4Zqozz Note: ADMINISTER BY KH8Uvrkgc Comment: [06/16/2013] Ordered by Yash8 Result Comment: [08/22/2014] Ordered by Kgqj8Pnzafr Comment: [08/17/2014] Ordered by Jvfm86Nkxkvh Comment: [06/16/2013] Ordered by Wpjg59Mlcgh Note: VIS 10/13/811 Admin Note: GIVEN BY WB88Jzffi Note: VIS 01/29/2011641657Zxvol Note: GIVEN BY RN15 Admin Note: GIVEN BY IF62Foogg Note: GIVEN BY RG58Kvbnp Note: GIVEN BY GI63Fwjqj Note: GIVEN BY HM07Wbhyf Note: GIVEN BY SR23Sskmt Note: GIVEN BY IM84Zygel Note: GIVEN BY TE79Bsozq Note: GIVEN BY GJ84Zcmgp Note: GIVEN BY EV17Bxxty Note: GIVEN BY ZW42Zoihp Note: GIVEN BY PS37Pgipo Note: GIVEN BY RF62Wsnyr Note: GIVEN BY LU60Yxtzh Note: GIVEN BY KB74Sacsj Note: GIVEN BY SW27Ehdfu Note: GIVEN BY AB31Fmplr Note: GIVEN BY UH39Tyrll Note: GIVEN BY QS75Vfniy Note: GIVEN BY ZN77Lkirt Note: GIVEN BY QS70Xgjsy Note: GIVEN BY HZ01Cyejj Note: GIVEN BY RN37 Admin Note: GIVEN BY GM08Hhjes Note: GIVEN BY DZ48Lxoip Note: GIVEN BY RN Medications benzoyl peroxide [...] 2 Refills, Maintenance, 06/24/20 13:56:00 EST, Tablet, [id number], Partial fill upon patient request, 1... 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 Kath LawrenceGuathfcy4[facility]wab[facility] Psych: Clinician: Kath Peña Social History Social History Type Response Smoking Status Never (less than 100 in life time) entered on: 06/24/20 Sex
--- OUTSIDE RECORDS SUMMARY | 2022-07-20 15:05 | XMS_ITS | Continuity of Care Document ---
:2000 Author Organization [facility] [place] Address Unavailable , Care Team Providers Name Role Phone Yash BRAFDORD, Becka Chappell Primary Care Physician Encounter [facility] Date(s): 09/18/21 - 10/18/21 [facility] Allergies, Adverse Reactions, Alerts No Known [...] pediatric vaccine9 02 Given hepatitis B pediatric kooekem84 02 Given Meningococcal Conjugate Vaccine 07/20/18 Given Meningococcal Conjugate Xuvolml54 06/16/13 Given Human Papillomavirus Vaccine 12/05/14 Given Human Papillomavirus Zjsoprt03 08/17/14 Given Human Papillomavirus Wvwlmha29 08/17/14 Given Human Papillomavirus Vaccine 06/08/14 Given tetanus/diphtheria/pertussis, acel(Tdap)14 06/16/13 Given Varicella Virus Mbmxgkl67 05/27/11 Given Varicella Virus Jclteda65 04/04/03 Given influenza virus vaccine, live17 05/20/10 Given diphtheria/tetanus/pertussis, acel(DTaP)18 06/19/07 Given diphtheria/tetanus/pertussis, acel(DTaP)19 11/17/06 Given diphtheria/tetanus/pertussis, acel(DTaP)20 09/07/03 Given diphtheria/tetanus/pertussis, acel(DTaP)21 02 Given diphtheria/tetanus/pertussis, acel(DTaP)22 02 Given diphtheria/tetanus/pertussis, acel(DTaP)23 02 Given Hepatitis A Pediatric Ixwvwgu51 01/05/07 Given Hepatitis A Pediatric Twxbigd59 07/14/06 Given Hepatitis A Pediatric Zbxwvwf83 05/14/06 Given Measles/Mumps/Rubella Virus Btizlwp45 11/17/06 Given Measles/Mumps/Rubella Virus Ogmepka47 04/04/03 Given Poliovirus Vaccine, Adnquirbrsk33 11/17/06 Given Poliovirus Vaccine, Yeowybegpew16 02 Given Poliovirus Vaccine, Vbrlfwoudpj54 02 Given Poliovirus Vaccine, Gwbrwlamlqo46 02 Given pneumococcal 7-valent 09/07/03 Given pneumococcal 7-valent xpewwav63 02 Given pneumococcal 7-valent bwosonq27 02 Given pneumococcal 7-valent kbeldiy14 02 Given Haemophilus B conjugate (HbOC) qhqbaeg53 04/04/03 Given Haemophilus B conjugate (HbOC) fltltyr56 02 Given Haemophilus B conjugate (HbOC) oxxxgxb03 02 Given 1Result Comment: [06/16/2013] Ordered by Pbvz1Aaaxt Note: VIS 02/01/12 YZICZ7Qhrhb Note: VIS 02/24/201172453Fwfmu Note: --VIS 05/03/09 GICIZ8Zxddw Note: VIS 05/03/09 yvirx0Nsfsd Note: ADMINISTER BY SU6Eqwlx Note: GIVEN BY FC8Wowsw Note: GIVEN BY OK6Hmzwo Note: GIVEN BY WO65Jpobe Note: GIVEN BY VR67Dhbcym Comment: [06/16/2013] Ordered by Ywmq95Wxtqsm Comment: [08/22/2014] Ordered by Guhn13 Result Comment: [08/17/2014] Ordered by Fvef33Tyrmog Comment: [06/16/2013] Ordered by Xxwj60Yhjld Note: VIS 10/13/0716Admin Note: GIVEN BY AI88Btepy Note: VIS 01/29/2011961473Znfaj Note: GIVEN BY RL89Orlfg Note: GIVEN BY VF50Ingky Note: GIVEN BY KR19Xghgs Note: GIVEN BY KW74Pfckt Note: GIVEN BY VS74Xjqum Note: GIVEN BY HH53Kxsdl Note: GIVEN BY NL45Ncsau Note: GIVEN BY IY39Zewbr Note: GIVEN BY BN96Xsrgx Note: GIVEN BY LD64Rzbct Note: GIVEN BY DZ74Rgkot Note: GIVEN BY RN30 Admin Note: GIVEN BY AB37Ljqib Note: GIVEN BY IV30Covrj Note: GIVEN BY NM85Qvuuz Note: GIVEN BY DM26Ktntt Note: GIVEN BY WF27Dumyh Note: GIVEN BY KK01Ldgwx Note: GIVEN BY XY09Punty Note: GIVEN BY SY61Raewr Note: GIVEN BY GE79Yeyim Note: GIVEN BY RN Medications benzoyl peroxide [...] 2 Refills, Maintenance, 06/24/20 13:56:00 EST, Tablet, [id number], Partial fill upon patient request, 1... 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 Kath LawrenceIwbloran7Vfoqle Psych: Clinician: Kath Peña Social History Social History Type Response Smoking Status Never (less than 100 in life time) entered on: 06/24/20 Sex
--- OUTSIDE RECORDS SUMMARY | 2022-07-20 15:05 | XMS_ITS | Continuity of Care Document ---
:2000 Author Organization [facility] Address Unavailable , Care Team Providers Name Role Phone Yash BRADFORD, Becka Chappell Primary Care Physician [place] [facility] [place] 08[place]21 [facility] [place] Allergies, Adverse Reactions, Alerts Substance Reaction [...] Meningococcal Conjugate Vaccine 07/20/18 Given Meningococcal Conjugate Vbkhpbj68 06/16/13 Given Human Papillomavirus Vaccine 12/05/14 Given Human Papillomavirus Jtmyeys63 08/17/14 Given Human Papillomavirus Fqnkhyk91 08/17/14 Given Human Papillomavirus Vaccine 11/7/14 Given tetanus/diphtheria/pertussis, acel(Tdap)14 06/16/13 Given Varicella Virus Aolwqsz75 05/27/11 Given Varicella Virus Idsegna34 04/04/03 Given influenza virus vaccine, live17 05/20/10 Given diphtheria/tetanus/pertussis, acel(DTaP)18 06/19/07 Given diphtheria/tetanus/pertussis, acel(DTaP)19 11/17/06 Given diphtheria/tetanus/pertussis, acel(DTaP)20 09/07/03 Given diphtheria/tetanus/pertussis, acel(DTaP)21 02 Given diphtheria/tetanus/pertussis, acel(DTaP)22 02 Given diphtheria/tetanus/pertussis, acel(DTaP)23 02 Given Hepatitis A Pediatric Qjvwpuj49 01/05/07 Given Hepatitis A Pediatric Sojxvsm52 07/14/06 Given Hepatitis A Pediatric Njbucmj33 05/14/06 Given Measles/Mumps/Rubella Virus Ogpgktt98 11/17/06 Given Measles/Mumps/Rubella Virus Umrljdv41 04/04/03 Given Poliovirus Vaccine, Lqjjbygenfk02 11/17/06 Given Poliovirus Vaccine, Mnpbimuthuj21 02 Given Poliovirus Vaccine, Twrmghqfsrb97 02 Given Poliovirus Vaccine, Hkrhgnsozrj76 02 Given pneumococcal 7-valent vxqyikh35 09/07/03 Given pneumococcal 7-valent dmolbbs83 02 Given pneumococcal 7-valent gasyeor18 02 Given pneumococcal 7-valent 02 Given Haemophilus B conjugate (HbOC) eerrkps27 04/04/03 Given Haemophilus B conjugate (HbOC) 02 Given Haemophilus B conjugate (HbOC) rnwosmu34 02 Given 1Result Comment: [06/16/2013] Ordered by Lfaw3Tqjat Note: VIS 02/01/12 HEKBF5Ydjlo Note: VIS 02/24/201110590Bxdfh Note: --VIS 05/03/09 NLZLK7Gkmnp Note: VIS 05/03/09 nqrpr7Gbule Note: ADMINISTER BY MA8Gihas Note: GIVEN BY YN7Zvyde Note: GIVEN BY QK3Xglhj Note: GIVEN BY EC16Zvwre Note: GIVEN BY KJ76Dttpqk Comment: [06/16/2013] Ordered by Xqer77Xykaur Comment: [08/22/2014] Ordered by Guhn13 Result Comment: [08/17/2014] Ordered by Jpmb01Fuclze Comment: [06/16/2013] Ordered by Siax64Pbjjb Note: VIS 10/13/0716Admin Note: GIVEN BY KT11Qgjyk Note: VIS 01/29/2011902407Gezty Note: GIVEN BY ZB36Kkkrl Note: GIVEN BY NJ79Mfxmk Note: GIVEN BY FT25Poyvs Note: GIVEN BY GY31Rurua Note: GIVEN BY WT74Svxxq Note: GIVEN BY AN02Oaqab Note: GIVEN BY DK02Irnth Note: GIVEN BY EX94Ycacm Note: GIVEN BY UE28Kdabe Note: GIVEN BY LN69Tfqmc Note: GIVEN BY HI86Xxhkk Note: GIVEN BY RN30 Admin Note: GIVEN BY UJ69Tvdhm Note: GIVEN BY FS95Prtof Note: GIVEN BY GU57Kskfh Note: GIVEN BY TI91Olhcs Note: GIVEN BY IQ85Mhygl Note: GIVEN BY WZ00Xccem Note: GIVEN BY LK04Mvtgt Note: GIVEN BY NL53Ahhzm Note: GIVEN BY FA08Glvwc Note: GIVEN BY RN Medications benzoyl peroxide [...] 2 Refills, Maintenance, 06/24/20 13:56:00 EST, Tablet, [id number], Partial fill upon patient request, 1... 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 Kath LawrenceMuhuofge9Turb[facility] Psych: Clinician: Kath Peña Social History Social History Type Response Smoking Status Never (less than 100 in life time) entered on: 06/24/20 Sex
== END 2022-07-20 17:21 | disposition home or self-care (01) ==
PROVIDERS: Emergency Provider Emergency Medicine; PCP Internal Medicine
DX: L02.411 Cutaneous abscess of right axilla (principal)
CPT/HCPCS: 10060; 99282; 99283

== ENCOUNTER 2022-11-20 14:14 | Emergency (ER) | payer OTHER, SELFPAY ==
[2022-11-20 14:18] VITALS: BP 134/86; PULSE 74; RESP 18; TEMP 36.9; O2SAT 100; BMI 21.0
--- NOTE | 2022-11-20 14:20 | ED.FEMALEGU ---
HPI - Female Genitourinary General Chief complaint: Urogenital-Female <Sony Leon - Last Filed: 11/20/22 14:21> Stated complaint: Pain on Urination <Sony Leon - Last Filed: 11/20/22 14:21> Time Seen by Provider: 11/20/22 14:31 <Sony Leon - Last Filed: 11/20/22 14:21> History of Present Illness HPI Narrative: Patient complains of burning with urination for over week with frequent urination and now some blood in the urine, no abdominal pain, she may have had a fever she checked at home and it was around 100, she has had no chills no flank pain no back pain no vomiting <SUNNY Leos - Last Filed: 11/20/22 15:26> Related Data Home medications: Home Medications Medication Instructions Recorded Confirmed etonogestrel 68 mg subdermal subdermal 06/23/21 implant (Nexplanon) Previous Rx's Medication Instructions Recorded cefuroxime axetil 500 mg tablet 500 mg PO BID 7 days #14 tabs 07/20/22 clindamycin phosphate 1 % topical 1 appl topical BID #60 grams 07/20/22 gel doxycycline hyclate 100 mg tablet 100 mg PO BID 7 days #14 tabs 07/20/22 nitrofurantoin 100 mg PO Q12H 5 days #10 caps 11/20/22 monohydrate/macrocrystals 100 mg capsule (Macrobid) phenazopyridine 200 mg tablet 200 mg PO TID PRN Discomfort with 11/20/22 (Pyridium) urination 6 doses #6 tabs <Sony Leon - Last Filed: 11/20/22 14:21> Allergies/Adverse reactions: Allergies Allergy/AdvReac Type Severity Reaction Status Date / Time No Known Allergies Allergy Verified 03/23/22 10:57 <Sony Leon - Last Filed: 11/20/22 14:21> COUNT INCLUDES THE [facility] Past Medical History Source: nursing notes reviewed <SUNNY Leos - Last Filed: 11/20/22 15:26> Medical History: Medical History Gastroenteritis No active medical problems No known health problems <Sony Leon - Last Filed: 11/20/22 14:21> Family History Family History: Family History Maternal Grandfather Colon cancer, Onset Age: 70 <Sony Leon - Last Filed: 11/20/22 14:21> Social History Social History: Social History Household Members Other:: mom and stepdad Housing: House Alcohol intake: never Patient Tobacco Use Status: Never used Tobacco Advance Directives: No Advance Directives Information Provided: Yes Current occupational status: employed 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[place] [place] Sexual orientation: Straight/Heterosexual Gender identity: Female <Sony Leon - Last Filed: 11/20/22 14:21> Physical Exam Vital Signs: Vital Signs: Last Vital Signs Temp 98.4 F 11/20/22 14:18 Pulse 74 11/20/22 14:18 Resp 18 11/20/22 14:18 BP 134/86 11/20/22 14:18 Pulse Ox 100 11/20/22 14:18 O2 Del Method Room Air 11/20/22 14:18 BMI result Body Mass Index 21.0 <Sony Leon - Last Filed: 11/20/22 14:21> Vital Signs: Last Vital Signs Temp 98.4 F 11/20/22 14:18 Pulse 74 11/20/22 14:18 Resp 18 11/20/22 14:18 BP 134/86 11/20/22 14:18 Pulse Ox 100 11/20/22 14:18 O2 Del Method Room Air 11/20/22 14:18 BMI result Body Mass Index 21.0 <SUNNY Leos - Last Filed: 11/20/22 15:26> General appearance is comfortable cooperative no acute distress Eyes no redness no pallor anicteric The pharynx is clear no redness swelling or exudate mucous membranes are moist Respiratory no distress The abdomen had mild suprapubic tenderness no rebound no guarding The back and flank there was no CVA tenderness Extremities no edema <SUNNY Leos - Last Filed: 11/20/22 15:26> Course Course Course Narrative: RME- patient reports UTI symptoms with lower abdominal pain a burning with urination for the last 9 days. Reports oliguria now and subjective fevers <Sony Leon - Last Filed: 11/20/22 14:21> RME- patient reports UTI symptoms with lower abdominal pain a burning with urination for the last 9 days. Reports oliguria now and subjective fevers Patient with no fever here, normal vital signs, UTI suggestive of urinary tract infection and symptoms suggestive of urinary tract infection is treated with antibiotic Physical exam no worrisome findings Chemistry was normal with normal renal function CBC had white count of 10.9 but doubt sepsis as vitals normal patient tolerates p.o. easily, no fever, comfortable with normal mental status in the ER and she is treated for urinary tract infection Urinalysis was positive for leukocyte esterase, rbc's were 20, WBC was 50, bacteria was trace Patient is treated with Macrobid and Pyridium for urinary tract infection <SUNNY Leos - Last Filed: 11/20/22 15:26> Medical Decision Making Lab Data Result Diagrams: 11/20/22 14:30 11/20/22 14:30 <Sony Leon - Last Filed: 11/20/22 14:21> Labs: Lab Results 11/20/22 11/20/22 11/20/22 Range/Units 14:30 14:30 14:30 WBC 10.9 H (4.8-10.8) X10*3/uL RBC 4.72 (4.20-5.50) X10*6/uL Hgb 12.2 (12.0-16.0) g/dl Hct 38.7 (37.0-47.0) % MCV 82.0 (80.0-98.0) fL MCH 25.8 L (27.0-33.0) pg MCHC 31.5 (31.0-35.0) g/dl RDW 16.7 H (11.0-16.0) % Plt Count 355 D (160-400) X10*3/uL MPV 10.4 (9.4-12.3) fL Immature Gran % (Auto) 0.4 (0.0-0.4) % Neut % (Auto) 67.2 (45-73) % Lymph % (Auto) 22.9 (20-40) % Mckinley % (Auto) 8.5 (2-11) % Eos % (Auto) 0.7 (0-4) % Baso % (Auto) 0.3 (0-2) % Lymph # (Auto) 2.5 (1.2-4.9) X10*3/uL Mckinley # (Auto) 0.9 (0.1-1.2) X10*3/uL Eos # (Auto) 0.1 (0.0-0.4) X10*3/uL Baso # (Auto) 0.0 (0.0-0.2) X10*3/uL Abs Immat Gran (auto) 0.04 H (0.00-0.03) X10*3/uL Absolute Neuts (auto) 7.3 (2.0-8.3) x10*3/uL Absolute Nucleated RBC 0.000 (0.0-0.012) X10*3/uL Nucleated RBC % (auto) 0.0 (0.0-0.2) /100WBC Sodium 141 (135-145) mmol/L Potassium 4.1 (3.3-5.1) mmol/L Chloride 106 (96-108) mmol/L Carbon Dioxide 27 (22-29) mmol/L Anion Gap 12 (12-20) BUN 16 (9-16) mg/dL Creatinine 0.76 (0.5-1.4) mg/dL Estim Creat Clear Calc 93.3 Estimated GFR > 60 Random Glucose 84 (60-115) mg/dL Calcium 9.7 (8.4-10.2) mg/dL Urine Color Yellow Urine Appearance Turbid Urine pH 7.0 (5.0-9.0) Ur Specific [place] 1.025 (1.005-1.025) Urine Protein 100 (2+) H (Neg-Trace) mg/dL Urine Glucose (UA) Negative (Negative) mg/dL Urine Ketones Negative (Negative) mg/dL Urine Blood Large (3+) H (Negative) Urine Nitrite Negative (Negative) Ur Leukocyte Esterase Large (3+) H (Negative) Urine RBC >20 H (0-2) /HPF Urine WBC >50 H (0-5) /HPF Ur Squamous Epith Cells 3-5 (0-2) /HPF Urine Bacteria Trace (None Seen) Hyaline Casts 3-5 (0-2) /LPF Urine Test (NEGATIVE) 11/20/22 Range/Units 14:30 WBC (4.8-10.8) X10*3/uL RBC (4.20-5.50) X10*6/uL Hgb (12.0-16.0) g/dl Hct (37.0-47.0) % MCV (80.0-98.0) fL MCH (27.0-33.0) pg MCHC (31.0-35.0) g/dl RDW (11.0-16.0) % Plt Count (160-400) X10*3/uL MPV (9.4-12.3) fL Immature Gran % (Auto) (0.0-0.4) % Neut % (Auto) (45-73) % Lymph % (Auto) (20-40) % Mckinley % (Auto) (2-11) % Eos % (Auto) (0-4) % Baso % (Auto) (0-2) % Lymph # (Auto) (1.2-4.9) X10*3/uL Mckinley # (Auto) (0.1-1.2) X10*3/uL Eos # (Auto) (0.0-0.4) X10*3/uL Baso # (Auto) (0.0-0.2) X10*3/uL Abs Immat Gran (auto) (0.00-0.03) X10*3/uL Absolute Neuts (auto) (2.0-8.3) x10*3/uL Absolute Nucleated RBC (0.0-0.012) X10*3/uL Nucleated RBC % (auto) (0.0-0.2) /100WBC Sodium (135-145) mmol/L Potassium (3.3-5.1) mmol/L Chloride (96-108) mmol/L Carbon Dioxide (22-29) mmol/L Anion Gap (12-20) BUN (9-16) mg/dL Creatinine (0.5-1.4) mg/dL Estim Creat Clear Calc Estimated GFR Random Glucose (60-115) mg/dL Calcium (8.4-10.2) mg/dL Urine Color Urine Appearance Urine pH (5.0-9.0) Ur Specific [place] (1.005-1.025) Urine Protein (Neg-Trace) mg/dL Urine Glucose (UA) (Negative) mg/dL Urine Ketones (Negative) mg/dL Urine Blood (Negative) Urine Nitrite (Negative) Ur Leukocyte Esterase (Negative) Urine RBC (0-2) /HPF Urine WBC (0-5) /HPF Ur Squamous Epith Cells (0-2) /HPF Urine Bacteria (None Seen) Hyaline Casts (0-2) /LPF Urine Test NEGATIVE (NEGATIVE) <Sony Leon - Last Filed: 11/20/22 14:21> Lab Results 11/20/22 11/20/22 11/20/22 Range/Units 14:30 14:30 14:30 WBC 10.9 H (4.8-10.8) X10*3/uL RBC 4.72 (4.20-5.50) X10*6/uL Hgb 12.2 (12.0-16.0) g/dl Hct 38.7 (37.0-47.0) % MCV 82.0 (80.0-98.0) fL MCH 25.8 L (27.0-33.0) pg MCHC 31.5 (31.0-35.0) g/dl RDW 16.7 H (11.0-16.0) % Plt Count 355 D (160-400) X10*3/uL MPV 10.4 (9.4-12.3) fL Immature Gran % (Auto) 0.4 (0.0-0.4) % Neut % (Auto) 67.2 (45-73) % Lymph % (Auto) 22.9 (20-40) % Mckinley % (Auto) 8.5 (2-11) % Eos % (Auto) 0.7 (0-4) % Baso % (Auto) 0.3 (0-2) % Lymph # (Auto) 2.5 (1.2-4.9) X10*3/uL Mckinley # (Auto) 0.9 (0.1-1.2) X10*3/uL Eos # (Auto) 0.1 (0.0-0.4) X10*3/uL Baso # (Auto) 0.0 (0.0-0.2) X10*3/uL Abs Immat Gran (auto) 0.04 H (0.00-0.03) X10*3/uL Absolute Neuts (auto) 7.3 (2.0-8.3) x10*3/uL Absolute Nucleated RBC 0.000 (0.0-0.012) X10*3/uL Nucleated RBC % (auto) 0.0 (0.0-0.2) /100WBC Sodium 141 (135-145) mmol/L Potassium 4.1 (3.3-5.1) mmol/L Chloride 106 (96-108) mmol/L Carbon Dioxide 27 (22-29) mmol/L Anion Gap 12 (12-20) BUN 16 (9-16) mg/dL Creatinine 0.76 (0.5-1.4) mg/dL Estim Creat Clear Calc 93.3 Estimated GFR > 60 Random Glucose 84 (60-115) mg/dL Calcium 9.7 (8.4-10.2) mg/dL Urine Color Yellow Urine Appearance Turbid Urine pH 7.0 (5.0-9.0) Ur Specific [place] 1.025 (1.005-1.025) Urine Protein 100 (2+) H (Neg-Trace) mg/dL Urine Glucose (UA) Negative (Negative) mg/dL Urine Ketones Negative (Negative) mg/dL Urine Blood Large (3+) H (Negative) Urine Nitrite Negative (Negative) Ur Leukocyte Esterase Large (3+) H (Negative) Urine RBC >20 H (0-2) /HPF Urine WBC >50 H (0-5) /HPF Ur Squamous Epith Cells 3-5 (0-2) /HPF Urine Bacteria Trace (None Seen) Hyaline Casts 3-5 (0-2) /LPF Urine Test (NEGATIVE) 11/20/22 Range/Units 14:30 WBC (4.8-10.8) X10*3/uL RBC (4.20-5.50) X10*6/uL Hgb (12.0-16.0) g/dl Hct (37.0-47.0) % MCV (80.0-98.0) fL MCH (27.0-33.0) pg MCHC (31.0-35.0) g/dl RDW (11.0-16.0) % Plt Count (160-400) X10*3/uL MPV (9.4-12.3) fL Immature Gran % (Auto) (0.0-0.4) % Neut % (Auto) (45-73) % Lymph % (Auto) (20-40) % Mckinley % (Auto) (2-11) % Eos % (Auto) (0-4) % Baso % (Auto) (0-2) % Lymph # (Auto) (1.2-4.9) X10*3/uL Mckinley # (Auto) (0.1-1.2) X10*3/uL Eos # (Auto) (0.0-0.4) X10*3/uL Baso # (Auto) (0.0-0.2) X10*3/uL Abs Immat Gran (auto) (0.00-0.03) X10*3/uL Absolute Neuts (auto) (2.0-8.3) x10*3/uL Absolute Nucleated RBC (0.0-0.012) X10*3/uL Nucleated RBC % (auto) (0.0-0.2) /100WBC Sodium (135-145) mmol/L Potassium (3.3-5.1) mmol/L Chloride (96-108) mmol/L Carbon Dioxide (22-29) mmol/L Anion Gap (12-20) BUN (9-16) mg/dL Creatinine (0.5-1.4) mg/dL Estim Creat Clear Calc Estimated GFR Random Glucose (60-115) mg/dL Calcium (8.4-10.2) mg/dL Urine Color Urine Appearance Urine pH (5.0-9.0) Ur Specific [place] (1.005-1.025) Urine Protein (Neg-Trace) mg/dL Urine Glucose (UA) (Negative) mg/dL Urine Ketones (Negative) mg/dL Urine Blood (Negative) Urine Nitrite (Negative) Ur Leukocyte Esterase (Negative) Urine RBC (0-2) /HPF Urine WBC (0-5) /HPF Ur Squamous Epith Cells (0-2) /HPF Urine Bacteria (None Seen) Hyaline Casts (0-2) /LPF Urine Test NEGATIVE (NEGATIVE) <SUNNY Leos - Last Filed: 11/20/22 15:26> Discharge Plan Discharge Clinical Impression: Urinary tract infection <Sony Leon - Last Filed: 11/20/22 14:21> Patient Disposition: Home, Self-Care <Sony Leon - Last Filed: 11/20/22 14:21> Additional Instructions: We are treating urine infection with Macrobid antibiotic Pyridium helps relieve discomfort with urination but it may turn the urine an orange color which she do not have to worry about Return any time for any worsening symptoms, fever, vomiting, 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 any worse condition or any concerns <Sony Leon - Last Filed: 11/20/22 14:21> Prescriptions: New nitrofurantoin monohyd/m-cryst [Macrobid] 100 mg capsule 100 mg PO Q12H 5 Days Qty: 10 0RF Rx Instructions: must administer with a meal/food phenazopyridine [Pyridium] 200 mg tablet 200 mg PO TID PRN (Reason: Discomfort with urination) Qty: 6 0RF No Action cefuroxime axetil 500 mg tablet 500 mg PO BID 7 Days Qty: 14 0RF doxycycline hyclate 100 mg tablet 100 mg PO BID 7 Days Qty: 14 0RF clindamycin phosphate 1 % gel 1 appl topical BID Qty: 60 0RF Nexplanon 68 mg implant subdermal <Sony Leon - Last Filed: 11/20/22 14:21>
[2022-11-20 14:36] LABS: MANUAL DIFF FLAG NO
[2022-11-20 14:37] LABS: Basophils Percent Auto 0.3 % (0-2); Eosinophils Absolute Auto 0.1 X10*3/uL (0.0-0.4); Eosinophils Percent Auto 0.7 % (0-4); Hematocrit 38.7 % (37.0-47.0); Hemoglobin 12.2 g/dl (12.0-16.0); Imm Gran Abs Auto 0.04 X10*3/uL (0.00-0.03); Imm Gran Pct Auto 0.4 % (0.0-0.4); Lymphocytes Absolute Auto 2.5 X10*3/uL (1.2-4.9); Lymphocytes Percent Auto 22.9 % (20-40); Mean Corpuscular HGB Conc 31.5 g/dl (31.0-35.0); Mean Corpuscular Hemoglobin 25.8 pg (27.0-33.0); Mean Platelet Volume 10.4 fL (9.4-12.3); Monocytes Absolute Auto 0.9 X10*3/uL (0.1-1.2); Monocytes Percent Auto 8.5 % (2-11); Neutrophils Absolute Auto 7.3 x10*3/uL (2.0-8.3); Neutrophils Percent Auto 67.2 % (45-73); Platelet Count 355 X10*3/uL (160-400); Red Blood Count 4.72 X10*6/uL (4.20-5.50); Red Cell Distribution Width 16.7 % (11.0-16.0); White Blood Count 10.9 X10*3/uL (4.8-10.8)
[2022-11-20 14:40] LABS: Appearance Urine Turbid; Color Urine Yellow; Glucose Urine UA Negative (Negative); Leukocyte Esterase Urine Large (3+) (Negative); Nitrite Urine Negative (Negative); Specific Gravity - Urine 1.025 (1.005-1.025); UMIC TRIGGER UACC YES; Urine Blood Large (3+) (Negative); Urine Ketones Negative (Negative); Urine Protein 100 (2+) mg/dL (Neg-Trace)
[2022-11-20 14:43] LABS: UPreg QC Valid YES; Urine Pregnancy NEGATIVE (NEGATIVE)
[2022-11-20 14:47] LABS: Bacteria Urine Trace (None Seen); RBC Urine >20 /HPF (0-2); UACC Culture Trigger YES; WBC Urine >50 /HPF (0-5)
[2022-11-20 14:55] LABS: Anion Gap 12 (12-20); Blood Urea Nitrogen 16 mg/dL (9-16); Calcium 9.7 mg/dL (8.4-10.2); Carbon Dioxide 27 mmol/L (22-29); Chloride 106 mmol/L (96-108); Creatinine Clr Calc Pharmacy 93.3; Estimated Glomerular Filt Rate > 60; Glucose Random 84 mg/dL (60-115); Potassium 4.1 mmol/L (3.3-5.1); Sodium 141 mmol/L (135-145)
[2022-11-20] MEDS: Phenazopyridine HCL 200 MG TABLET PO (15:24)
[2022-11-20] MEDS: Nitrofurantoin Monohyd/M-Cryst 100 MG CAPSULE PO (15:24)
== END 2022-11-20 15:37 | disposition home or self-care (01) ==
PROVIDERS: Physician Assistant; Emergency Provider Emergency Medicine Emergency Medical Services; PCP Internal Medicine
DX: N39.0 Urinary tract infection, site not specified (principal); R30.0 Dysuria; R10.13 Epigastric pain; Z79.899 Other long term (current) drug therapy
CPT/HCPCS: 36415; 80048; 81001; 81025; 85025; 87086; 87088; 87186; 99283

== ENCOUNTER 2023-08-05 07:58 | Outpatient (AMB) | payer OTHER, SELFPAY ==
[2023-08-05 08:10] VITALS: BP 110/62; PULSE 75; O2SAT 98; BMI 21.2
--- NOTE | 2023-08-05 08:10 | MHC.PC.OV ---
Vital Signs 08/05/23 08:10 Height 5 ft 2 in Weight 116 lb BMI 21.2 BP 110/62 Blood Pressure Location Lt brachial Position Sitting Pulse 75 Pulse Source Pulse Oximeter Pulse Oximetry (%) 98 Oxygen Delivery Method Room Air Intake Visit Reasons: New patient-Requesting physical Allergies No Known Allergies Allergy (Verified 08/05/23 08:20) Medication List - Last Reconciled 08/05/23 by Fernando Shepherd PA-C etonogestrel (Nexplanon) subdermal Tobacco use date assessed: 08/05/23 Dental Screening Dental Screen Date: 08/05/23 Did you have a dental visit in the last 12 months?: Yes Did you have a dental problem in the last 6 months where you did not have access to dental care?: No Was dental information given to patient?: Patient has dentist HPI New patient-Requesting physical HPI Details Patient is a 23-year-old female here today for a new patient annual physical. Patient has no significant past medical history. Concern--> she does report having several episodes boils which needs to be removed in the past. .. Anxiety: Does report anxious symptoms often thinking about the future. She was treated for ADHD in the past though did not like side effects of the ADHD medication. She is interested in mental health therapy. 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 She does report having low libido and wonders if this is due to a home only issue. Vaccines: Up-to-date with COVID vaccine, needs tetanus vaccine considering flu vaccine [facility] Medical History Gastroenteritis No active medical problems No known health problems Family History Maternal Grandfather Colon cancer, Onset Age: 70 Mother No problems noted. Father No problems noted. Sister No problems noted. 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 1. Little interest or pleasure in doing things: not at all 2. Feeling down, depressed, or hopeless: not at all 3. Trouble falling or staying asleep, or sleeping too much: not at all 4. Feeling tired or having little energy: not at all 5. Poor appetite or overeating: not at all 6. Feeling bad about yourself - or that you are a failure or have let yourself or your family down: not at all 7. Trouble concentrating on things, such as reading the newspaper or watching television: not at all 8. Moving or speaking so slowly that other people could have noticed. Or the opposite - being so fidgety or restless that you have been moving around a lot more than usual: not at all 9. Thoughts that you would be better off or of hurting yourself in some way: not at all Total score: 0 Depression Screening Interpretation: Negative Depression Screening Done: Yes 21214 - PHQ-9 Billing: Yes Source: Developed by Drs. Shawn Vargas, Tonya Gama, Oscar Pulido and colleagues, with an educational keshia from [employer]. Thrive Questionnaire Date Thrive assessed: 08/05/23 I am a: Patient What is your living situation today?: I have a steady place to live Within the past 12 months, did the food you bought not last and you didn't have the money to get more?: Never true Within the past 12 months, did you worry whether your food would run out before you got money to buy more?: Never true Do you have trouble paying for medicines?: No Do you have trouble getting transportation to medical appointments?: No Do you have trouble paying your heating and electricity bill?: No Do you have trouble taking care of your child, family member or friend?: No Do you have trouble with day-to-day activities such as bathing, preparing meals, shopping, managing finances, etc.?: No Are you currently unemployed and looking for a job?: No Are you interested in more education?: No Currently or been in a relationship where the following occur: no concerns reported AUDIT C Alcohol Use Questionnaire (AUDIT-C) 1. How often do you have a drink containing alcohol?: Monthly or less 2. How many drinks containing alcohol do you have on a typical day when you are drinking?: 5 or 6 3. How often do you have six or more drinks on one occasion?: Less than monthly Total Score: 4 MATTHEW-7 AMB Questionnaire MATTHEW-7 Date MATTHEW - 7 assessed: 08/05/23 Feeling nervous, anxious, or on edge: 0 = Not at all Not being able to stop or control worryin = Not at all Worrying too much about different things: 1 = Several days Trouble relaxin = Not at all Being so restless that it is hard to sit still: 0 = Not at all Becoming easily annoyed or irritable: 0 = Not at all Feeling afraid as if something awful might happen: 1 = Several days Total MATTHEW-7 score (0-4 normal; 5-9 mild; 10-14 moderate; 15-21 severe): 2 Source: Developed by Drs. Shawn Vargas, Tonya Gama, Oscar Pulido and colleagues, with an educational keshia from [employer]. MATTHEW-7 Assessment Billing MATTHEW-7 Assessment Tool: MATTHEW-7 Assessment 23496 Review of Systems Const Denies body aches, Denies chills, Denies excessive sweating, Denies fatigue, Denies fever(s) and Denies headache(s) Eyes Denies blurry vision ENT Denies dysphagia, Denies vertigo, Denies dizziness, Denies headache(s), Denies hearing loss and Denies tinnitus Card Denies chest pain, Denies chest pain with activity, Denies syncope, Denies irregular heart rhythm and Denies dyspnea Resp Denies chest congestion, Denies cough, Denies hemoptysis, Denies dyspnea and Denies wheezing GI Denies abdominal pain, Denies melena, Denies hematochezia, Denies coffee ground emesis, Denies dysphagia, Denies diarrhea, Denies nausea and Denies vomiting Denies urinary frequency, Denies dysuria, Denies urinary hesitancy and Denies urinary urgency Musc Denies arthralgias, Denies limited range of motion, Denies muscle cramps and Denies muscle weakness Skin/Breast Denies rash and Denies skin ulcer Neuro Denies Abnormal speech present, Denies confusion, Denies vertigo, Denies dizziness, Denies syncope, Denies headache(s), Denies memory loss and Denies seizure-like activity Psych Denies anxiety, Denies confusion, Denies depression, Denies memory loss, Denies panic attacks and Denies paranoia Endo Denies excessive sweating, Denies fatigue, Denies flushing, Denies polydipsia and Denies polyuria Aller/Immun Denies wheezing Physical exam (Primary Care) Vital Signs: Last Vital Signs Pulse 75 08/05/23 08:10 BP 110/62 08/05/23 08:10 Pulse Ox 98 08/05/23 08:10 Oxygen Delivery Method Room Air 08/05/23 08:10 BMI result Body Mass Index 21.2 Tobacco/Smoking Status: Tobacco use Status Tobacco use date assessed 08/05/23 08/05/23 08:19 Patient Tobacco Use Status Never used Tobacco 08/05/23 08:26 e-Cigarette/Vaping Use Never Used 08/05/23 08:26 PHQ-9: PHQ-9 Score PHQ-9: Total score 0 08/05/23 08:46 Depression Screening Interpretation: Negative Thrive Assessment: Date of Thrive Assessment Date Thrive assessed 08/05/23 08/05/23 08:19 Currently or been in a relationship where the following occur: no concerns reported Const General: cooperative, comfortable, no acute distress, alert and awake; No confusion Orientation/consciousness: oriented to person, oriented to place, patient oriented x3 and No confusion HENMT Head: Yes normocephalic Ears: external ears normal and TM's normal bilaterally Face and sinus: No sinus tenderness Mouth: Normal oral and palatal mucosa present and tongue normal Teeth and gingiva: dentition normal and gingiva normal Throat: Yes posterior oropharynx normal, Yes tonsils normal and Yes uvula midline Eyes Conjunctivae: conjunctivae normal Sclerae: sclerae normal Pupils: Equal, round and reactive pupils present EOM: EOMs intact bilaterally Direct Ophthalmoscopy: No no photophobia Neck Neck: Yes no lymphadenopathy, No tender and Yes no JVD Thyroid: Thyroid normal Carotids: no bruits Chest Chest palpation & inspection: no tenderness Resp Effort & Inspection: normal respiratory effort, no audible wheezes, not labored and no stridor Auscultation: no crackles, no rales, no rhonchi and no wheezes Cardio Jugular venous distension: no JVD Rate: regular rate, not bradycardic and not tachycardic Rhythm: regular rhythm Bruits: no carotid bruits Peripheral pulses: Peripheral pulses 2+ throughout GI Inspection: Yes normal to inspection, No abdominal wall ecchymosis and No visible herniation Palpation (GI): Soft to palpation, nontender, no guarding, not rigid and No hepatosplenomegaly present Auscultation: normoactive bowel sounds General: Yes no CVA tenderness Back/Spine/Pelvis Back: no CVA tenderness and No back tenderness Cervical Spine: cervical ROM normal Thoracic/Lumbar Spine: thoracic and lumbar spine normal to inspection, straight leg raise negative bilaterally, No thoraco-lumbar ROM limited and No lumbar spinal tenderness Skin Lesions: no lesions Rashes: no rashes Wounds: no wounds Neuro General: oriented to person, oriented to place, patient oriented x3, CN's II-XI intact bilaterally and No confusion Cranial nerves: Yes Equal, round and reactive pupils present and Yes Normal accommodation reflex present Cognition (Neuro): normal cognition Speech: No Abnormal speech present Gait exam (Neuro): Normal gait present Motor exam (neuro): 5/5 motor strength present throughout Extrem Right upper extremity: full ROM; no cyanosis Left upper extremity: full ROM; no cyanosis Right lower extremity: no edema Left lower extremity: no edema Psych Appearance: grossly normal Mental Status: mental status grossly normal Affect: normal affect Attitude: cooperative Thought process: Normal thought process present Office Procedures Flu Questionnaire Does the patient have a severe egg allergy?: No Does the patient have severe life threatening allergies?: No Does the patient have a fever or illness today?: No Has the patient ever had Guillain-Teachey Syndrome?: No Has the patient ever had any past reaction to a flu shot?: No Immunizations flu vacc [id number] 6mos up(PF) 60 mcg(15 mcgx4)/0.5 mL IM syringe Performing Provider: Fernando Shepherd PA-C Performing Location: [facility] Administered by: LITA Gómez on 08/05/23 08:46 Dose Route Admin Location Dispensed Lot Number Expiration Date NDC Medical Oncologist 0.5 mL IM Right Deltoid 0.5 mL [id number] 01/30/24 [id number] [employer] VIS Given Date VIS Provided VIS Publication Date 08/05/23 Single Vaccine 21 Eligibility Eligibility Date Funding Source Not [facility] Eligible 08/05/23 Private Assessment and Plan Assessment & Plan (1) Annual physical exam: Code(s): Z00.00 - Encounter for general adult medical examination without abnormal findings (2) Screening for diabetes mellitus (DM): Code(s): Z13.1 - Encounter for screening for diabetes mellitus (3) MATTHEW (generalized anxiety disorder): Code(s): F41.1 - Generalized anxiety disorder Plan: Patient does to be suffering with generalized anxiety disorder. She reports symptoms over thinking and thinking the future which causes her some distress. She reports she was on ADHD medication in the past though had side effects. She is interested in establishing care with a mental health therapist (4) Low libido: Code(s): R68.82 - Decreased libido Plan: She does report having low libido over the last 2 years. She is unsure if this is due to hormonal issue. Did have a Nexplanon implanted 2 years ago. Check hormone levels. Advised to reach out to her circular stuffer about her low sexual libido Orders: Orders Estrogen Today R68.82 - Decreased libido Testosterone, Free/Total Today R68.82 - Decreased libido Follicle Stimulating Hormone Today R68.82 - Decreased libido Comprehensive [place]. Panel Fast Today Z13.1 - Encounter for screening for diabetes mellitus Estradiol Ultra Sensitive Today R68.82 - Decreased libido Influenza [id number] Immunization Today Z23 - Encounter for immunization Referrals Counseling Referral F41.1 - Generalized anxiety disorder Coding Level of Care Code New Pt Prev Care 18-39yr([id number] Diagnoses Annual physical exam Z00.00 Screening for diabetes mellitus (DM) Z13.1 MATTHEW (generalized anxiety disorder) F41.1 Low libido R68.82 Additional Codes MATTHEW-7 Assessment Billing - MATTHEW-7 Assessment Tool: MATTHEW-7 Assessment 73602 ([id number])
== END 2023-08-05 08:44 | disposition home or self-care (01) ==
PROVIDERS: PCP Physician Assistant; Visit Provider Physician Assistant
DX: Z23 Encounter for immunization (principal); Z00.00 Encounter for general adult medical examination without abnormal findings; F41.1 Generalized anxiety disorder; R68.82 Decreased libido
CPT/HCPCS: 90471; 90686; 99385

== ENCOUNTER 2023-08-05 09:20 | Outpatient (REF) | payer OTHER, SELFPAY ==
[2023-08-07 07:03] LABS: Follicle Stimulating Hormone 7.3 mIU/mL
[2023-08-10 23:19] LABS: Estradiol Ultra Sensitive 69 pg/mL
[2023-08-11 19:34] LABS: Estrogen 182 pg/mL
[2023-08-25 14:34] LABS: Testosterone, Free 4.6 pg/mL (0.1-6.4); Testosterone, Total 28 ng/dL (2-45)
== END 2023-08-05 09:21 | disposition home or self-care (01) ==
LOC: HO.HHCL 09:20
PROVIDERS: Visit Provider Physician Assistant
DX: Z13.1 Encounter for screening for diabetes mellitus (principal); R68.82 Decreased libido
CPT/HCPCS: 36415; 80053; 82670; 82672; 83001; 84402; 84403

== ENCOUNTER 2023-11-01 08:05 | Outpatient (AMB) | payer OTHER, SELFPAY ==
--- NOTE | 2023-11-01 08:08 | A.OFFPC_ITS ---
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: No Is last menstrual period known: Yes Allergies No Known Allergies Allergy (Verified 11/01/23 08:29) Medication List - Last Reconciled 11/01/23 by SHARITA Osorio etonogestrel (Nexplanon) subdermal Tobacco use date assessed: 11/01/23 Dental Screening Dental Screen Date: 11/01/23 Did you have a dental visit in the last 12 months?: Yes Did you have a dental problem in the last 6 months where you did not have access to dental care?: No Was dental information given to patient?: Patient has dentist HPI HPI Comments History of Present Illness Details 23-year-old female generalized anxiety d isorder, ADHD, hyperkinetic syndrome, oppositional defiant disorder, recurrent skin abscesses, chronic daily headaches, fatigue, depression 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 Now on leave from work Will est care w/ counselor 11/23/23 Not currently on meds Does not want meds Admits passive suicidal thoughts; no plan Has physical sx of palpitations and presyncope Restless sleep. Aware of and has used CHD. Has 1 close friend, a boyfriend and Mom, sister and Dad who also provide support [facility] Medical History (Updated 11/01/23 @ 08:42 by SHARITA Osorio) Low libido Surgical History (Updated 11/01/23 @ 08:23 by Christelle Collado CMA) S/P LASIK surgery of both eyes Family History Maternal Grandfather Colon cancer, Onset Age: 70 Mother No problems noted. Father No problems noted. Sister No problems noted. 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 1. Little interest or pleasure in doing things: nearly every day 2. Feeling down, depressed, or hopeless: nearly every day 3. Trouble falling or staying asleep, or sleeping too much: several days 4. Feeling tired or having little energy: more than half the days 5. Poor appetite or overeating: not at all 6. Feeling bad about yourself - or that you are a failure or have let yourself or your family down: more than half the days 7. Trouble concentrating on things, such as reading the newspaper or watching television: not at all 8. Moving or speaking so slowly that other people could have noticed. Or the opposite - being so fidgety or restless that you have been moving around a lot more than usual: several days 9. Thoughts that you would be better off or of hurting yourself in some way: more than half the days Total score: 14 Depression Screening Interpretation: Positive Depression Screening Follow-up: Existing condition and New Medication prescribed Depression Screening Done: Yes 89660 - PHQ-9 Billing: Yes Source: Developed by Drs. Shawn Vargas, Tonya Gama, Oscar Pulido and colleagues, with an educational keshia from [employer]. Thrive Questionnaire Date Thrive assessed: 11/01/23 I am a: Patient What is your living situation today?: I have a steady place to live Within the past 12 months, did the food you bought not last and you didn't have the money to get more?: Never true Within the past 12 months, did you worry whether your food would run out before you got money to buy more?: Never true Do you have trouble paying for medicines?: No Do you have trouble getting transportation to medical appointments?: No Do you have trouble paying your heating and electricity bill?: No Do you have trouble taking care of your child, family member or friend?: No Do you have trouble with day-to-day activities such as bathing, preparing meals, shopping, managing finances, etc.?: No Are you currently unemployed and looking for a job?: No Are you interested in more education?: No Please select the resources that you would like help with: None Currently or been in a relationship where the following occur: no concerns reported THRIVE Score: 0 AUDIT C Alcohol Use Questionnaire (AUDIT-C) 1. How often do you have a drink containing alcohol?: Monthly or less 2. How many drinks containing alcohol do you have on a typical day when you are drinking?: 1 or 2 3. How often do you have six or more drinks on one occasion?: Never Total Score: 1 Score Reviewed/Action Taken: Yes MATTHEW-7 AMB Questionnaire MATTHEW-7 Date MATTHEW - 7 assessed: 11/01/23 Feeling nervous, anxious, or on edge: 2 = More than half the days Not being able to stop or control worryin = More than half the days Worrying too much about different things: 3 = Nearly every day Trouble relaxin = More than half the days Being so restless that it is hard to sit still: 3 = Nearly every day Becoming easily annoyed or irritable: 2 = More than half the days Feeling afraid as if something awful might happen: 2 = More than half the days Total MATTHEW-7 score (0-4 normal; 5-9 mild; 10-14 moderate; 15-21 severe): 16 Source: Developed by Drs. Shawn Vargas, Tonya Gama, Oscar Pulido and colleagues, with an educational keshia from [employer]. MATTHEW-7 Assessment Billing MATTHEW-7 Assessment Tool: MATTHEW-7 Assessment 60461 Review of Systems Const All systems reviewed & are unremarkable except as noted in HPI and below Physical exam (Primary Care) Vital Signs: Last Vital Signs Temp 98.2 F 11/01/23 08:18 Pulse 88 11/01/23 08:18 Resp 12 11/01/23 08:18 BP 133/84 11/01/23 08:18 Pulse Ox 96 11/01/23 08:18 Oxygen Delivery Method Room Air 11/01/23 08:18 BMI result Body Mass Index 22.1 Tobacco/Smoking Status: Tobacco use Status Tobacco use date assessed 08/05/23 11/01/23 08:09 Patient Tobacco Use Status Never used Tobacco 11/01/23 08:09 e-Cigarette/Vaping Use Never Used 11/01/23 08:09 Depression Screening Interpretation: Positive Depression Screening Follow-up: Existing condition and New Medication prescribed Thrive Assessment: Date of Thrive Assessment Date Thrive assessed 08/05/23 11/01/23 08:09 Currently or been in a relationship where the following occur: no concerns reported Const Other: awake alert NAD Sad, tearful, quiet, appropriate RRR LS CTAB Assessment and Plan Assessment & Plan (1) MDD (major depressive disorder), recurrent episode: Comment: start sertraline 25mg po daily x 2 weeks then 50mg daily. NN message sent to help her w/ details of counseling appts; does not know where it is. RTO in 6 weeks to f/u, sooner PRN Code(s): F33.9 - Major depressive disorder, recurrent, unspecified Qualifiers: Major depression episode severity: moderate Qualified Code(s): F33.1 - Major depressive disorder, recurrent, moderate (2) MATTHEW (generalized anxiety disorder): Comment: see MDD Code(s): F41.1 - Generalized anxiety disorder (3) ADHD: Comment: on Adderral in past by Ebony. Did not like the way it made her feel. Currently on no medications. Doing fine. Code(s): F90.9 - Attention-deficit hyperactivity disorder, unspecified type Qualifiers: Attention deficit-hyperactivity disorder type: combined inattentive- hyperactive Qualified Code(s): F90.2 - Attention-deficit hyperactivity disorder, combined type Plan: This note is constructed using voice recognition software. While every effort has been made to ensure accuracy in electric frying pan repairer, still errors may have been included Sometimes, these errors may affect the content or meaning of the given sentence . Total time spent caring for the patient today was 45 minutes. This includes time spent before the visit reviewing the chart, time spent during the visit, and time spent after the visit on documentation Medications: New sertraline 1/2 tab daily x 2 weeks, then 1 tab daily 50 mg PO DAILY 30 tabs 1RF Coding Level of Care Code Est Pt Level 5 (89210) Diagnoses Moderate episode of recurrent major depressive disorder F33.1 Major depression episode severity: moderate MATTHEW (generalized anxiety disorder) F41.1 Attention deficit hyperactivity disorder (ADHD), combined type F90.2 Attention deficit-hyperactivity disorder type: combined inattentive- hyperactive Additional Codes MATTHEW-7 Assessment Billing - MATTHEW-7 Assessment Tool: MATTHEW-7 Assessment [id number] ([id number])
[2023-11-01 08:18] VITALS: BP 133/84; PULSE 88; RESP 12; TEMP 36.8; O2SAT 96; BMI 22.1
== END 2023-11-01 08:41 | disposition home or self-care (01) ==
PROVIDERS: PCP Physician Assistant; Visit Provider Nurse Practitioner Family
DX: F33.1 Major depressive disorder, recurrent, moderate (principal); F41.1 Generalized anxiety disorder; F90.2 Attention-deficit hyperactivity disorder, combined type
CPT/HCPCS: 96127; 99215

== ENCOUNTER 2023-11-12 15:39 | Outpatient (AMB) | payer OTHER, SELFPAY ==
--- NOTE | 2023-11-12 15:42 | A.OFFPC_ITS ---
Intake Visit Reasons: discuss FMLA paperwork [phone] Intake Note: Discuss FMLA paperwork Chemical Treatment Operator Required: No Allergies No Known Allergies Allergy (Verified 11/12/23 16:02) Tobacco use date assessed: 11/12/23 Dental Screening Dental Screen Date: 11/01/23 HPI HPI Comments History of Present Illness Details Telehealth visit today for FMLA She has been out of work since 10/27/2023 for MDD, GERD with panic. Since last office visit she started sertraline as directed. She will start the full tab tomorrow. She is taking around 12:00. Feels good initially but then feels a little foggy in her head a few hours later. Did have 1 headache but otherwise no further headaches. She does have an appointment with [facility] for initial counseling appointment scheduled for the 22 of November. She continues to have periods of crying and having a hard time getting out of bed. The passive suicide thoughts have improved. She does not feel like she is able to return to work at this time. FMLA paperwork was completed at the time of the visit. Continuously from 10/27/2023 through 01/27/2024. We can re-evaluate the need for this leave at her next appointment which is in about 4 weeks. The goal will be to get her to a stable place her we can recertify this leave as an intermittent leave. At this time she does require continuous leave. She asked me to fax this form to Fax to [facility] reg [phone] She is aware that there is a patent needs to be signed. She states that she will sign and return it. I will have my office fax it to her there. I will also have my office staff faxed a completed paperwork to the HR leave specialis ts at [facility]. [facility] Medical History (Updated 11/12/23 @ 16:53 by SHARITA Osorio) Low libido Surgical History (Updated 11/01/23 @ 08:23 by Christelle Collado CMA) S/P LASIK surgery of both eyes Family History Maternal Grandfather Colon cancer, Onset Age: 70 Mother No problems noted. Father No problems noted. Sister No problems noted. 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 Shawn Vargas, Tonya Gama, Oscar Pulido and colleagues, with an educational keshia from [employer]. Physical exam (Primary Care) Tobacco/Smoking Status: Tobacco use Status Tobacco use date assessed 11/12/23 11/12/23 16:03 Patient Tobacco Use Status Never used Tobacco 11/12/23 15:42 e-Cigarette/Vaping Use Never Used 11/12/23 15:42 Thrive Assessment: Date of Thrive Assessment Date Thrive assessed 11/01/23 11/12/23 15:42 Telehealth Telehealth Location of provider rendering services: practice address Location of patient: address on file Patient Identification confirmed using: Name, : Yes Telehealth method: voice only Patient verbally consented to treatment: Yes Patient verbally consented to billing insurance company: Yes Patient informed of any privacy concerns related to visit: Yes Minutes spent on Phone/Video with Pt.: 12 Assessment and Plan Assessment & Plan (1) MDD (major depressive disorder), recurrent episode: Comment: Continue sertraline 50mg daily. Initial counseling appointment at [facility] 11/23/2023 [facility] paperwork completed for continuous leave October 26 through 01/27/2024. Code(s): F33.9 - Major depressive disorder, recurrent, unspecified Qualifiers: Major depression episode severity: moderate Qualified Code(s): F33.1 - Major depressive disorder, recurrent, moderate (2) MATTHEW (generalized anxiety disorder): Comment: see MDD Code(s): F41.1 - Generalized anxiety disorder Patient Instructions: Return to office in 4 weeks as scheduled sooner if needed. Coding Level of Care Code Tele Est Pt Level 2 (13394) Diagnoses Moderate episode of recurrent major depressive disorder F33.1 Major depression episode severity: moderate MATTHEW (generalized anxiety disorder) F41.1
== END 2023-11-12 16:38 | disposition home or self-care (01) ==
LOC: HO.HMGFM 15:39
PROVIDERS: PCP Nurse Practitioner Family; Visit Provider Nurse Practitioner Family
DX: F33.1 Major depressive disorder, recurrent, moderate (principal); F41.1 Generalized anxiety disorder
CPT/HCPCS: 99212

== ENCOUNTER 2023-12-21 08:31 | Outpatient (AMB) | payer OTHER, SELFPAY ==
--- NOTE | 2023-12-21 08:32 | MHC.PC.OV ---
Vital Signs 12/21/23 08:36 Height 5 ft 1 in Weight 112 lb BMI 21.2 BP 104/60 Blood Pressure Location Lt brachial Position Sitting Pulse 73 Pulse Source Pulse Oximeter Pulse Oximetry (%) 97 Oxygen Delivery Method Room Air Intake Visit Reasons: fu MDD Allergies No Known Allergies Allergy (Verified 12/21/23 08:39) Medication List - Last Reconciled 12/21/23 by Adina Martínez, AUTOMOTIVE WARRANTY ADMINISTRATOR-BC etonogestrel (Nexplanon) subdermal sertraline 50 mg PO DAILY trazodone 25 mg PO DAILY Tobacco use date assessed: 11/12/23 Dental Screening Dental Screen Date: 11/01/23 HPI HPI Comments History of Present Illness Details 23-year-old female generalized anxiety disorder, ADHD, hyperkinetic syndrome, oppositional defiant disorder, recurrent skin abscesses, chronic daily headaches, fatigue, depression Specialist Counselor Chip Applying Machine Tender Health maintenance Vaccines: Tdap 08/05/2023, up-to-date on flu Labs 11/20/2022 show a normal CBC, 08/05/2023 normal CMP, normal estrogen, estradiol, FSH, testosterone Here today to f/u on MATTHEW and FMLA Since last visit, she has been active with [facility] for weekly counseling, last visit December 05; most previous visit was cancelled on [facility] behalf, she is waiting for a reschedule. Was asble to see Psych and was started on trazadone unsure of dose at bedtime to help sleep. Only using PRN with + relief. Can make her quite tired the following day. Feels groggy at times, too. Cont to take sertraline as directed. Feel good i like it alot . Self increased from 50mg to 100mg to help w/ anxiety, reports this helped greatly. She has been taking this for about 3 weeks. Does not feel she needs dose increase. Next Psych appt January 11 2024. No longer having any passive or active SI. Did have wt loss in the setting of decreased appetite. This has improved however wt remains about 5 lbs lower that 08/2023. Today we discussed alternatives to trazadone such as hydroxyzine as this would reduce day time fatigue and grogginess. She wants to wait at this time and will fu with Psych. Discussed RTW today does not feel ready to return at this time as cont to have periods of emotional lability with crying and some anxiety. Wishes to RTW 01/27/24. FMLA Continuously from 10/27/2023 through 01/27/2024. [facility] Medical History (Updated 12/21/23 @ 09:07 by Adina Martínez, [facility]) Low libido Surgical History (Updated 11/01/23 @ 08:23 by Christelle Collado CMA) S/P LASIK surgery of both eyes Family History Maternal Grandfather Colon cancer, Onset Age: 70 Mother No problems noted. Father No problems noted. Sister No problems noted. 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 Shawn Vargas, Tonya Gama, Oscar Pulido and colleagues, with an educational keshia from [employer]. Physical exam (Primary Care) Vital Signs: Last Vital Signs Pulse 73 12/21/23 08:36 BP 104/60 12/21/23 08:36 Pulse Ox 97 12/21/23 08:36 Oxygen Delivery Method Room Air 12/21/23 08:36 BMI result Body Mass Index 21.2 Tobacco/Smoking Status: Tobacco use Status Tobacco use date assessed 11/12/23 12/21/23 08:32 Patient Tobacco Use Status Never used Tobacco 12/21/23 08:32 e-Cigarette/Vaping Use Never Used 12/21/23 08:32 Thrive Assessment: Date of Thrive Assessment Date Thrive assessed 11/01/23 12/21/23 08:32 Assessment and Plan Assessment & Plan (1) MATTHEW (generalized anxiety disorder): Comment: see MDD Code(s): F41.1 - Generalized anxiety disorder (2) MDD (major depressive disorder), recurrent episode: Comment: Increase sertraline from 50 mg daily to 100 mg daily. Continue trazodone as prescribed by Psychiatry. Continue counseling FMLA paperwork completed for continuous leave October 26 through 01/27/2024. Code(s): F33.9 - Major depressive disorder, recurrent, unspecified Qualifiers: Major depression episode severity: moderate Qualified Code(s): F33.1 - Major depressive disorder, recurrent, moderate Plan Check labs today. This note is constructed using voice recognition software. While every effort has been made to ensure accuracy in marketing producer, still errors may have been included Sometimes, these errors may affect the content or meaning of the given sentence . Total time spent caring for the patient today was 30 minutes. This includes time spent before the visit reviewing the chart, time spent during the visit, and time spent after the visit on documentation Orders: Orders Complete Blood Count no Diff Today F33.1 - Major depressive disorder, recurrent, moderate, F41.1 - Generalized anxiety disorder IRON PROFILE Today F33.1 - Major depressive disorder, recurrent, moderate, F41.1 - Generalized anxiety disorder Hemoglobin A1c Today F33.1 - Major depressive disorder, recurrent, moderate, F41.1 - Generalized anxiety disorder TSH reflex Free T4 Today F33.1 - Major depressive disorder, recurrent, moderate, F41.1 - Generalized anxiety disorder Comprehensive [place]. Panel Fast Today F33.1 - Major depressive disorder, recurrent, moderate, F41.1 - Generalized anxiety disorder Lipid Panel Today F33.1 - Major depressive disorder, recurrent, moderate, F41.1 - Generalized anxiety disorder Microalbumin, Random (w Creat) Today F33.1 - Major depressive disorder, recurrent, moderate, F41.1 - Generalized anxiety disorder Vitamin D 1,25 dihydroxy Today F33.1 - Major depressive disorder, recurrent, moderate, F41.1 - Generalized anxiety disorder Medications: New sertraline 100 mg PO DAILY 30 tabs 1RF Discontinued sertraline Discontinued Reason: Doctor's Order 50 mg PO DAILY 30 tabs 1RF Patient Instructions: Return to office in 6 weeks to follow up on your labs as well as your anxiety. Sooner if needed. Coding Level of Care Code Est Pt Level 4 (83710) Diagnoses MATTHEW (generalized anxiety disorder) F41.1 Moderate episode of recurrent major depressive disorder F33.1 Major depression episode severity: moderate
[2023-12-21 08:36] VITALS: BP 104/60; PULSE 73; O2SAT 97; BMI 21.2
== END 2023-12-21 09:03 | disposition home or self-care (01) ==
PROVIDERS: PCP Physician Assistant; Visit Provider Nurse Practitioner Family
DX: F41.1 Generalized anxiety disorder (principal); F33.1 Major depressive disorder, recurrent, moderate
CPT/HCPCS: 99214

== ENCOUNTER 2023-12-21 09:08 | Outpatient (REF) | payer OTHER, SELFPAY ==
[2023-12-21 11:45] LABS: Hematocrit 39.8 % (37.0-47.0); Hemoglobin 12.3 g/dl (12.0-16.0); Mean Corpuscular HGB Conc 30.9 g/dl (31.0-35.0); Mean Corpuscular Hemoglobin 27.5 pg (27.0-33.0); Mean Platelet Volume 11.3 fL (9.4-12.3); Platelet Count 292 X10*3/uL (160-400); Red Blood Count 4.47 X10*6/uL (4.20-5.50); White Blood Count 8.3 X10*3/uL (4.8-10.8)
[2023-12-21 11:56] LABS: Estimated Average Glucose 94 mg/dL; Hemoglobin A1c % 4.9 % (<6.0)
[2023-12-21 12:15] LABS: Alanine Aminotransferase 15 U/L (0-31); Albumin Level 4.4 g/dL (3.5-5.0); Alkaline Phosphatase 61 U/L (39-117); Anion Gap 14 (12-20); Aspartate Amino Transferase 14 U/L (5-31); Bilirubin Total 0.3 mg/dL (0.0-1.0); Blood Urea Nitrogen 20 mg/dL (9-16); Calcium 9.6 mg/dL (8.4-10.2); Carbon Dioxide 26 mmol/L (22-29); Chloride 107 mmol/L (96-108); Cholesterol 107 mg/dL (<200); Estimated Glomerular Filt Rate > 60; Glucose Fasting 82 mg/dL (60-99); HDL Cholesterol 45 mg/dL (>40); Iron 46 mcg/dL (30-160); LDL Cholesterol Calculated 47 mg/dL (<100); Percent Iron Saturation 15 % (15-50); Potassium 4.5 mmol/L (3.3-5.1); Sodium 142 mmol/L (135-145); Total Iron Binding Capacity 311 mcg/dL (228-428); Total Protein 6.9 g/dL (6.5-8.0); Triglycerides 75 mg/dL (<150); Unsaturated Iron Binding 265 ug/dL
[2023-12-21 12:17] LABS: TSH reflex Free T4 1.65 uIU/mL (0.32-4.0)
[2023-12-21 12:31] LABS: Creatinine Urine 221.96 mg/dL; Microalbum/Creatinine Ratio Ur 12.6 ug/mg cr (<30)
[2023-12-24 17:34] LABS: VITAMIN D (1,25 OH) D3 41 pg/mL; Vit D (1,25-Dihydroxy) Total 41 pg/mL (18-72); Vitamin D (1,25 OH) D2 <8 pg/mL
== END 2023-12-21 09:09 | disposition home or self-care (01) ==
LOC: HO.WFDLDS 09:08
PROVIDERS: Visit Provider Nurse Practitioner Family
DX: F33.1 Major depressive disorder, recurrent, moderate (principal); F41.1 Generalized anxiety disorder
CPT/HCPCS: 36415; 80053; 80061; 82043; 82570; 82652; 83036; 83540; 84443; 85027

== ENCOUNTER 2024-01-19 12:46 | Outpatient (AMB) | payer OTHER, SELFPAY ==
[2024-01-19 12:50] VITALS: BP 108/76; PULSE 112; RESP 14; O2SAT 99; BMI 20.5
--- NOTE | 2024-01-19 12:50 | A.OFFPC_ITS ---
Vital Signs 01/19/24 12:50 Height 5 ft 1 in Weight 108 lb 4 oz BMI 20.5 BP 108/76 Blood Pressure Location Rt brachial Position Sitting Respiration 14 Pulse 112 H Pulse Source Pulse Oximeter Pulse Oximetry (%) 99 Oxygen Delivery Method Room Air Intake Visit Reasons: Clearance paperwork Intake Note: Patient states that she also would like provider to look at a huge mass in her left armpit that has spread to side of breast and in arm. Histopathologist Required: No Accompanied by: Self / Same As Patient Allergies No Known Allergies Allergy (Verified 01/19/24 13:12) Medication List - Last Reconciled 01/19/24 by Adina Martínez, PRODUCTION SKI REPAIRER- etonogestrel (Nexplanon) subdermal sertraline 100 mg PO DAILY Tobacco use date assessed: 11/12/23 Dental Screening Dental Screen Date: 11/01/23 HPI HPI Comments History of Present Illness Details 23-year-old female generalized anxiety d isorder, ADHD, hyperkinetic syndrome, oppositional defiant disorder, recurrent skin abscesses, chronic daily headaches, fatigue, depression Specialist Counselor Trust Manager Health maintenance Vaccines: Tdap 08/05/2023, up-to-date on flu Here today to follow up on FMLA. At the current time she is on continuous leave 10/27/2023 through 01/27/2024 for treatment of her generalized anxiety and major depressive disorder. Unfortunately since the last time she has fallen out of care with both her psychiatrist and her counselor. At the last visit which was reviewed today she had said that her appointments had been rescheduled and had not had any appointments since our 1st visit. She states that she is currently taking her sertraline as directed. She is stopped taking trazodone. When I discussed with her today the reason for her leave and the medical necessity which requires her to get treatment to allow her to return to work given her conditions named above and asked what she has done to remedies is these conditions since she did not follow through with her medical appointments she states that she called the [facility] hotline, has been journaling, going outside, riding bike, hanging out with family. I explained to her today that the reason for medical leave is not to hang out with family or go bike riding although that this may be a positive benefit from mental health. However it is to go to medical appointments and take medications as directed to be able to turn returned to work. Given this I have signed off on full returned to work starting tomorrow 01/20/2024. . 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 She does not know if she can do this job. I did advise her that she needs to speak to him in resources about this and that I can not certify a medical leave for her not liking her job. In other notes she continues to lose weight. We did discuss this. States that she is only eating 1 hungry. Eating less than daily recommended caloric intake. Drinking only water and diet beverages. Did advise her to eat 3 meals per day and to eat at least 1800 calories per day. If at any time that she finds she has not able to do this she can follow up with a inside sales engineer or come back to see me. Declined inside sales engineer referral at this time. We did discuss eating disorder behaviors, body image disorder, binge eating and purging and she denied all of these. She complains of a painful lump underneath her left armpit that has been present for a few weeks. Has been trying to apply compresses and squeeze it and it has not gotten any better. Now the area around it is limping and painful. Reports a history of cysts requiring antibiotics in the past last time 1 year ago requiring Keflex. Finally the following labs were reviewed with her: Labs 12/21/2023 show a normal CBC, hemoglobin A1c 4.9%, CMP, TSH, cholesterol, normal urine microalbumin, Vit d WNL details of missed appts mentioned today: January 02 psych appt r/s to January 10 and missed this. Stopped seeing counselor - felt like appts were rushed and did not meet her needs. Hard to schedule appts. [facility] Medical History Low libido Surgical History S/P LASIK surgery of both eyes Family History Maternal Grandfather Colon cancer, Onset Age: 70 Mother No problems noted. Father No problems noted. Sister No problems noted. 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 Shawn Vargas, Tonya Gama, Oscar Pulido and colleagues, with an educational keshia from [employer]. Review of Systems Const All systems reviewed & are unremarkable except as noted in HPI and below Physical exam (Primary Care) Vital Signs: Last Vital Signs Pulse 112 H 01/19/24 12:50 Resp 14 01/19/24 12:50 BP 108/76 01/19/24 12:50 Pulse Ox 99 01/19/24 12:50 Oxygen Delivery Method Room Air 01/19/24 12:50 BMI result Body Mass Index 20.5 Tobacco/Smoking Status: Tobacco use Status Tobacco use date assessed 11/12/23 01/19/24 12:56 Patient Tobacco Use Status Never used Tobacco 01/19/24 12:56 e-Cigarette/Vaping Use Never Used 01/19/24 12:56 Thrive Assessment: Date of Thrive Assessment Date Thrive assessed 11/01/23 01/19/24 12:56 Const Other: Awake alert oriented no acute distress, thin Smiling, engaging, appropriate Infected cyst of left axilla with associated adenopathy with purulent drainage. Exam hard given the amount of tenderness. Assessment and Plan Assessment & Plan (1) Infected cyst of skin: Code(s): L72.9 - Follicular cyst of the skin and subcutaneous tissue, unspecified; L08.9 - Local infection of the skin and subcutaneous tissue, unspecified (2) MDD (major depressive disorder), recurrent episode: Code(s): F33.9 - Major depressive disorder, recurrent, unspecified Qualifiers: Major depression episode severity: moderate Qualified Code(s): F33.1 - Major depressive disorder, recurrent, moderate (3) MATTHEW (generalized anxiety disorder): Code(s): F41.1 - Generalized anxiety disorder (4) Weight loss observed on examination: Code(s): R63.4 - Abnormal weight loss Plan This note is constructed using voice recognition software. While every effort has been made to ensure accuracy in hemodialysis charge nurse, still errors may have been included Sometimes, these errors may affect the content or meaning of the given sentence . Total time spent caring for the patient today was 60 minutes. This includes time spent before the visit reviewing the chart, time spent during the visit, and time spent after the visit on documentation Medications: New doxycycline hyclate 100 mg PO BID 14 tabs 0RF Patient Instructions: Take doxycycline as directed. Warm moist compresses. Gentle expression. Return to office in 1 week for re-evaluation. In regards to the [facility], you have been certified to return to work full duty starting tomorrow. Recommend he follow up with human resources regarding any other employment issues or concerns. Recommend continue to work on mental health. Continue sertraline. Would like to see you back in 2-3 months to see how you are doing. Sooner if needed. The original [facility] paperwork was completed today and hands she with the time of visit. Coding Level of Care Code Est Pt Level 5 (59903) Complex EM visit Add On G2211 Diagnoses Infected cyst of skin L72.9; L08.9 Moderate episode of recurrent major depressive disorder F33.1 Major depression episode severity: moderate MATTHEW (generalized anxiety disorder) F41.1 Weight loss observed on examination R63.4
== END 2024-01-19 13:23 | disposition home or self-care (01) ==
PROVIDERS: PCP Nurse Practitioner Family; Visit Provider Nurse Practitioner Family
DX: R63.4 Abnormal weight loss (principal); F33.1 Major depressive disorder, recurrent, moderate; L72.9 Follicular cyst of the skin and subcutaneous tissue, unspecified; L08.9 Local infection of the skin and subcutaneous tissue, unspecified; F41.1 Generalized anxiety disorder
CPT/HCPCS: 99215; G2211

== ENCOUNTER 2024-05-16 19:20 | Emergency (ER) | payer OTHER, SELFPAY ==
[2024-05-16 19:57] VITALS: BP 105/59; PULSE 86; RESP 18; TEMP 36.8; O2SAT 99; BMI 19.0
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
--- NOTE | 2024-05-16 20:08 | ECG_ITS ---
Test Reason : SYNCOPEE Blood Pressure : / mmHG Vent. Rate : 078 BPM Atrial Rate : 078 BPM P-R Int : 130 ms QRS Dur : 076 ms QT Int : 360 ms P-R-T Axes : 057 089 049 degrees QTc Int : 410 ms Normal sinus rhythm Normal ECG When compared with ECG of 14-NOV-2021 10:02, Premature atrial complexes are no longer Present Nonspecific T wave abnormality no longer evident in Anterior leads Referred By: Dot Guzman Electronically Signed By:BERTIN MARTINEZ
[2024-05-16 20:57] LABS: MANUAL DIFF FLAG NO
[2024-05-16 20:59] LABS: Basophils Percent Auto 0.3 % (0-2); Eosinophils Percent Auto 0.1 % (0-4); Hematocrit 35.9 % (37.0-47.0); Hemoglobin 11.4 g/dl (12.0-16.0); Imm Gran Abs Auto 0.04 X10*3/uL (0.00-0.03); Imm Gran Pct Auto 0.4 % (0.0-0.4); Lymphocytes Absolute Auto 0.8 X10*3/uL (1.2-4.9); Lymphocytes Percent Auto 8.1 % (20-40); Mean Corpuscular HGB Conc 31.8 g/dl (31.0-35.0); Mean Corpuscular Hemoglobin 26.6 pg (27.0-33.0); Mean Corpuscular Volume 83.7 fL (80.0-98.0); Mean Platelet Volume 10.4 fL (9.4-12.3); Monocytes Absolute Auto 1.4 X10*3/uL (0.1-1.2); Monocytes Percent Auto 14.8 % (2-11); Neutrophils Absolute Auto 7.1 x10*3/uL (2.0-8.3); Neutrophils Percent Auto 76.3 % (45-73); Platelet Count 302 X10*3/uL (160-400); Red Blood Count 4.29 X10*6/uL (4.20-5.50); Red Cell Distribution Width 15.4 % (11.0-16.0); White Blood Count 9.3 X10*3/uL (4.8-10.8)
[2024-05-16 21:01] VITALS: BP 112/72; BP 117/78; BP 130/90; PULSE 71; PULSE 82
[2024-05-16 21:22] LABS: Alanine Aminotransferase 10 U/L (0-31); Albumin Level 4.4 g/dL (3.5-5.0); Alkaline Phosphatase 57 U/L (39-117); Anion Gap 13 (12-20); Aspartate Amino Transferase 10 U/L (5-31); Bilirubin Direct 0.2 mg/dL (0.0-0.5); Bilirubin Total 0.5 mg/dL (0.0-1.0); Blood Urea Nitrogen 21 mg/dL (9-16); Calcium 9.6 mg/dL (8.4-10.2); Carbon Dioxide 27 mmol/L (22-29); Chloride 107 mmol/L (96-108); Creatinine Clr Calc Pharmacy 80.3; Estimated Glomerular Filt Rate > 60; Glucose Random 81 mg/dL (60-115); Potassium 4.5 mmol/L (3.3-5.1); Sodium 142 mmol/L (135-145)
[2024-05-16 21:23] LABS: Troponin-I High Sensitivity < 2.7 ng/L (<3.5-17.0)
[2024-05-16 21:24] LABS: INTERNATIONAL NORM RATIO 1.3 (0.9-1.1); Prothrombin Time 14.7 SEC (10.9-12.4)
[2024-05-16 21:26] LABS: HCG Quantitative < 2 mIU/mL
[2024-05-16 21:30] LABS: D Dimer High Sensitivity < 150 NG/ML; Partial Thromboplastin Time 22.5 SEC (26.0-36.8)
[2024-05-16 21:35] LABS: TSH reflex Free T4 0.66 uIU/mL (0.32-4.0)
[2024-05-16 22:18] LABS: Influenza A PCR NEGATIVE (Negative); Influenza B PCR NEGATIVE (Negative); Resp Syncy Virus RNA Qual PCR NEGATIVE (Negative); SARS COV2 PCR INHOUSE NEGATIVE (Negative)
[2024-05-16 22:53] VITALS: BP 107/73; PULSE 67; RESP 16; TEMP 36.8; O2SAT 98
[2024-05-16 23:14] VITALS: BP 107/73; PULSE 67; RESP 16; TEMP 36.8; O2SAT 98
== END 2024-05-16 23:14 | disposition home or self-care (01) ==
PROVIDERS: Physician Assistant Medical; Emergency Provider Emergency Medicine; PCP Nurse Practitioner Family
DX: R55 Syncope and collapse (principal); R94.31 Abnormal electrocardiogram [ECG] [EKG]; H53.8 Other visual disturbances; R10.2 Pelvic and perineal pain; Z03.818 Encounter for observation for suspected exposure to other biological agents ruled out; Z79.899 Other long term (current) drug therapy
CPT/HCPCS: 0241U; 36415; 80048; 80076; 83735; 84443; 84484; 84702; 85025; 85379; 85610; 85730; 93005; 99283; 99284

== ENCOUNTER → 2024-05-16 20:08 | Outpatient (BNV) | payer OTHER, SELFPAY | PROVIDERS: Emergency Provider Emergency Medicine; PCP Nurse Practitioner Family; Visit Provider Internal Medicine | DX: R55 Syncope and collapse (principal) | CPT/HCPCS: 93010 ==

== ENCOUNTER 2024-05-17 16:23 | Outpatient (AMB) | payer OTHER, SELFPAY ==
--- NOTE | 2024-05-17 14:12 | A.OFFPC_ITS ---
Intake Visit Reasons: ER f/u regarding bulk mail clerk appt. 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 Work up reviewed The recommendation was made for a Holter monitor The patient reports that she was feeling sick with an upper respiratory illness prior to the onset of her syncope and collapse. She did take NyQuil the night before. She has never had a syncopal episode prior to this. Since being home she has not had recurrence. Admits that she was staying in bed as she continues to feel mildly unwell from the URI. She reports at this point she is eating and drinking normally and does not feel like she was dehydrated at the time of the syncopal event. She tells me that her vision was blurred and warped right before the episode and she also had ringing in her ears. These sym ptoms have not recurred. When I asked her about chest pain she reports that she was catching her breath, and had an ache in her chest, felt like she could not catch her breath although does not think that she was hyperventilating. Today she denies any fever, chills, headache, visual disturbances, orthostatics. She would like to see the bulk mail clerk due to the syncopal event she also reports a family history of SVT. She is also open to a Holter monitor She further request a referral to Hematology. She reports that her mother has factor 5 deficiency and iron-deficiency anemia and requires iron transfusions. Chart was reviewed. CBC mildly abnormal yesterday in the emergency room during a period of acute illness. Otherwise her labs from December of 2023 show a normal CBC and normal iron profile. This was reviewed with her today. Be that as it may she still would like a referral to Hematology. Plan Refer to cardiology at [facility]. Check a 3 day Holter monitor. Advised to liberally hydrate. Include salt in her diet. Slow position changes. Emergency room education provided. In regards to the hematology referral, this was placed. Patient was made aware that she may not be seen as she does not have any labs at this time to indicate a need to be seen. She is okay with this Advised to avoid Nyquil. Otherwise supportive care for her URI. I will follow up with her once her Holter monitor results are back, sooner as needed This note is constructed using voice recognition software. While every effort has been made to ensure accuracy in claim technician, still errors may have been included Sometimes, these errors may affect the content or meaning of the given sentence . Total time spent caring for the patient today was 20 minutes. This includes time spent before the visit reviewing the chart, time spent during the visit, and time spent after the visit on documentation [facility] Medical History Low libido Surgical History S/P LASIK surgery of both eyes Family History Maternal Grandfather Colon cancer, Onset Age: 70 Mother No problems noted. Father No problems noted. Sister No problems noted. 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 Shawn Vargas, Tonya Gama, Oscar Pulido and colleagues, with an educational keshia from [employer]. Physical exam (Primary Care) Tobacco/Smoking Status: Tobacco use Status Tobacco use date assessed 11/12/23 05/17/24 14:12 Patient Tobacco Use Status Never used Tobacco 05/17/24 14:12 e-Cigarette/Vaping Use Never Used 05/17/24 14:12 Thrive Assessment: Date of Thrive Assessment Date Thrive assessed 11/01/23 05/17/24 14:12 Telehealth Telehealth Telehealth Platform: Telephone Location of provider rendering services: practice address Location of patient: address on file Patient Identification confirmed using: Name, : Yes Telehealth method: voice only Patient verbally consented to treatment: Yes Patient verbally consented to billing insurance company: Yes Patient informed of any privacy concerns related to visit: Yes Minutes spent on Phone/Video with Pt.: 11 Coding Level of Care Code Tele Est Pt Level 2 (67313) Diagnoses Hospital discharge follow-up Z09 Syncope and collapse R55 Viral upper respiratory tract infection J06.9 URI type: unspecified viral URI Family history of factor V deficiency Z83.2 Family history of supraventricular tachycardia Z82.49 Assessment & Plan Assessment & Plan (1) Hospital discharge follow-up: Code(s): Z09 - Encounter for follow-up examination after completed treatment for conditions other than malignant neoplasm Plan: . (2) Syncope and collapse: Code(s): R55 - Syncope and collapse Category: Medical Plan: . (3) URI (upper respiratory infection): Code(s): J06.9 - Acute upper respiratory infection, unspecified Qualifiers: URI type: unspecified viral URI Qualified Code(s): J06.9 - Acute upper respiratory infection, unspecified Plan: . (4) Family history of factor V deficiency: Code(s): Z83.2 - Family history of diseases of the blood and blood-forming organs and certain disorders involving the immune mechanism Category: Medical Plan: . (5) Family history of supraventricular tachycardia: Code(s): Z82.49 - Family history of ischemic heart disease and other diseases of the circulatory system Category: Medical Plan: . Orders: Orders ECG 3 day holter monitor Today R55 - Syncope and collapse Referrals Cardiology Referral R55 - Syncope and collapse, Z82.49 - Family history of ischemic heart disease and other diseases of the circulatory system Hematology & Oncology Referral R55 - Syncope and collapse, Z83.2 - Family history of diseases of the blood and blood-forming organs and certain disorders involving the immune mechanism
== END 2024-05-17 16:38 | disposition home or self-care (01) ==
LOC: HO.HMCFM 16:23
PROVIDERS: PCP Nurse Practitioner Family; Visit Provider Nurse Practitioner Family
DX: Z09 Encounter for follow-up examination after completed treatment for conditions other than malignant neoplasm (principal); R55 Syncope and collapse; J06.9 Acute upper respiratory infection, unspecified; Z83.2 Family history of diseases of the blood and blood-forming organs and certain disorders involving the immune mechanism; Z82.49 Family history of ischemic heart disease and other diseases of the circulatory system

== ENCOUNTER → 2024-05-17 16:23 | Outpatient (BNVA) | payer OTHER, SELFPAY | PROVIDERS: PCP Nurse Practitioner Family; Visit Provider Nurse Practitioner Family | DX: R55 Syncope and collapse (principal); Z83.2 Family history of diseases of the blood and blood-forming organs and certain disorders involving the immune mechanism; Z82.49 Family history of ischemic heart disease and other diseases of the circulatory system ==

== ENCOUNTER → 2024-05-19 13:09 | Outpatient (BNV) | payer OTHER, SELFPAY | PROVIDERS: PCP Nurse Practitioner Family; Visit Provider Internal Medicine | DX: R00.0 Tachycardia, unspecified (principal) | CPT/HCPCS: 93244 ==

== ENCOUNTER → 2024-05-19 13:14 | Outpatient (REF) | payer OTHER, SELFPAY ==
--- NOTE | 2024-05-19 13:09 | HM_ITS ---
* Total monitoring time 3 days. * Underlying rhythm is sinus with an average rate of 89/Min. * Rare supraventricular and ventricular ectopy. * No significant pauses or AV blocks. * Patient markers used in association with sinus rhythm and sinus tachycardia. * Shortness of breath, rapid heartbeat, dizziness, chest discomfort, nausea associated with sinus rhythm, sinus tachycardia. MTDD
== END ==
LOC: HO.CARD 13:14
PROVIDERS: PCP Nurse Practitioner Family; Visit Provider Nurse Practitioner Family
DX: R55 Syncope and collapse (principal)
CPT/HCPCS: 93242

== ENCOUNTER 2024-06-02 11:44 | Outpatient (AMB) | payer OTHER, SELFPAY ==
--- NOTE | 2024-06-02 11:38 | MHC.PC.OV ---
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 Patient : No Allergies No Known Allergies Allergy (Verified 06/02/24 11:39) Medication List - Last Reconciled 06/02/24 by SHARITA Osorio etonogestrel (Nexplanon) subdermal sertraline 100 mg PO DAILY Tobacco use date assessed: 11/12/23 Dental Screening Dental Screen Date: 11/01/23 HPI HPI Comments History of Present Illness Details 24-year-old female generalized anxiety disorder, ADHD, hyperkinetic syndrome, oppositional defiant disorder, recurrent skin abscesses, chronic daily headaches, fatigue, depression Telehealth visit today to follow up on her Holter monitor results that were done to evaluate a syncopal event. The results were reviewed with her in detail today. In regards to her cardiac symptoms she reports that she had an episode 1 day after returning the Holter monitor. It was while she was walking upstairs to a friend's house suddenly she felt cold-like her blood pressure had dropped and she needed to sit down. She felt like she had to catch her breath. She did not faint but she had a sensation like she was going to. Her friend was able to bring her water and give her some candy and she did feel better. She reports that she was very active that day however she did eat breakfast and had just returned from eating lunch. She was referred to Cardiology at the last follow up however I do not yet see an appointment. She was also referred to hematology for evaluation of a family history of factor 5. This initial consult is scheduled in July Plan Discussed looking at a tilt-table study. Patient would like to hold off until she sees Cardiology. I have advised her to call them directly and schedule a follow up visit. I would like for her to continue to hydrate liberally, change positions slowly. Cautious while driving. Did not have prolonged periods of fasting. If she feels like she is going to faint advised to lie down in raise legs. Follow up as scheduled, sooner as needed This note is constructed using voice recognition software. While every effort has been made to ensure accuracy in rib chopper, still errors may have been included Sometimes, these errors may affect the content or meaning of the given sentence . Total time spent caring for the patient today was 11 minutes. This includes time spent before the visit reviewing the chart, time spent during the visit, and time spent after the visit on documentation [facility] Medical History Low libido Surgical History S/P LASIK surgery of both eyes Family History Maternal Grandfather Colon cancer, Onset Age: 70 Mother No problems noted. Father No problems noted. Sister No problems noted. 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 Shawn Vargas, Tonya Gama, Oscar Pulido and colleagues, with an educational keshia from [employer]. Physical exam (Primary Care) Tobacco/Smoking Status: Tobacco use Status Tobacco use date assessed 11/12/23 05/17/24 14:12 Patient Tobacco Use Status Never used Tobacco 05/17/24 14:12 e-Cigarette/Vaping Use Never Used 05/17/24 14:12 Thrive Assessment: Date of Thrive Assessment Date Thrive assessed 11/01/23 05/17/24 14:12 Telehealth Telehealth Telehealth Platform: [facility] Location of provider rendering services: practice address Location of patient: other Patient Identification confirmed using: Name, : Yes Telehealth method: voice only Patient verbally consented to treatment: Yes Patient verbally consented to billing insurance company: Yes Patient informed of any privacy concerns related to visit: Yes Minutes spent on Phone/Video with Pt.: 8 Results Reviewed Results Reviewed: [address] [address] Holter Monitor Report Signed Patient: Catie Mccloud I MR#: [id number] : 2000 Acct:[id number] Age/Sex: 24 / F ADM Date: 05/19/24 [facility] Adina SHERIFF Ordering Physician: Adina Martínez Date of Service: 05/19/24 Procedure(s): ECG 3 day holter monitor Accession Number(s): cc: Adina Martínez~ Total monitoring time 3 days. Underlying rhythm is sinus with an average rate of 89/Min. Rare supraventricular and ventricular ectopy. No significant pauses or AV blocks. Patient markers used in association with sinus rhythm and sinus tachycardia. Shortness of breath, rapid heartbeat, dizziness, chest discomfort, nausea associated with sinus rhythm, sinus tachycardia. Dictated By: Yuri Smith MD Signed By: <Electronically signed by Yuri Smith MD> 05/31/24 1236 DD/ 1158 TD/TT: 05/29/24 1158 Cotton Factor: Coding Level of Care Code Tele Est Pt Level 2 (76837) Complex EM visit Add On G2211 Diagnoses Syncope and collapse R55 Family history of supraventricular tachycardia Z82.49 Family history of factor V deficiency Z83.2 Assessment & Plan Assessment & Plan (1) Syncope and collapse: Code(s): R55 - Syncope and collapse Category: Medical Plan: . (2) Family history of supraventricular tachycardia: Code(s): Z82.49 - Family history of ischemic heart disease and other diseases of the circulatory system Category: Medical Plan: . (3) Family history of factor V deficiency: Code(s): Z83.2 - Family history of diseases of the blood and blood-forming organs and certain disorders involving the immune mechanism Category: Medical Plan .
== END 2024-06-02 14:57 | disposition home or self-care (01) ==
LOC: HO.HMCFM 11:44
PROVIDERS: PCP Nurse Practitioner Family; Visit Provider Nurse Practitioner Family
DX: R55 Syncope and collapse (principal); Z82.49 Family history of ischemic heart disease and other diseases of the circulatory system; Z83.2 Family history of diseases of the blood and blood-forming organs and certain disorders involving the immune mechanism

== ENCOUNTER → 2024-06-02 11:44 | Outpatient (BNVA) | payer OTHER, SELFPAY | PROVIDERS: PCP Nurse Practitioner Family; Visit Provider Nurse Practitioner Family ==

== ENCOUNTER → 2024-07-04 11:00 | Outpatient (BNV) | payer OTHER, SELFPAY | PROVIDERS: PCP Nurse Practitioner Family; Visit Provider Internal Medicine | DX: Z83.2 Family history of diseases of the blood and blood-forming organs and certain disorders involving the immune mechanism (principal) | CPT/HCPCS: 99204 ==

== ENCOUNTER 2025-02-15 14:40 | Outpatient (REF) | payer OTHER, SELFPAY ==
[2025-02-15 19:36] LABS: Bacterial Vaginosis PCR NEGATIVE (Negative); Candida Group PCR NOT DETECTED (Not Detect); Candida glab krusei PCR NOT DETECTED (Not Detect); Trichomonas vaginalis PCR NOT DETECTED (Not Detect)
[2025-02-15 20:25] LABS: CT PCR NOT DETECTED (Not Detect.); NG PCR NOT DETECTED (Not Detect.)
[2025-02-16 03:46] LABS: Syphilis Screen Nonreactive (Nonreactive)
[2025-02-16 03:55] LABS: HIV Num 1 0.06 S/CO (0.00-0.99); ~HepC Num1 0.15 S/CO (0.00-0.79); ~Hepatitis C Antibody Nonreactive (Nonreactive)
== END 2025-02-15 14:41 | disposition home or self-care (01) ==
LOC: HO.LAB 14:40
PROVIDERS: PCP Nurse Practitioner Family; Visit Provider Advanced Practice Midwife
DX: Z01.419 Encounter for gynecological examination (general) (routine) without abnormal findings (principal); Z20.2 Contact with and (suspected) exposure to infections with a predominantly sexual mode of transmission; Z11.3 Encounter for screening for infections with a predominantly sexual mode of transmission
CPT/HCPCS: 36415; 81515; 86780; 86803; 87389; 87491; 87591; 88175

== ENCOUNTER 2025-02-15 14:40 | Outpatient (AMB) | payer OTHER, SELFPAY ==
--- NOTE | 2025-02-15 14:48 | MHC.OFFVIS ---
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 Nexplanon in place, last year. Monthly menses, skips up to 2 months. Currently is not sexually active. She denies vaginal itching or irritation. STI screening offered; she accepts. She tries to eat healthy and stays active with exercise. Denies family history of breast or ovarian. FH colon cancer. [facility] Medical History Low libido Surgical History S/P LASIK surgery of both eyes Family History Maternal Grandfather Colon cancer, Onset Age: 70 Mother No problems noted. Father No problems noted. Sister No problems noted. 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[place], [employer] Sexual orientation: Straight/Heterosexual Gender identity: Female Cognitive needs: No Hearing needs: No Vision needs: No Female Reproductive History Menstrual Age of Menarche: 12 Duration of menses: 3-5 days Date of last menstrual period: 02/07/25 control method: implanted (Nexplanon) Review of Systems Const All systems reviewed & are unremarkable except as noted in HPI and below Reports as per HPI Eyes Reports no additional complaints ENT Reports no additional complaints Card Reports no additional complaints Resp Reports no additional complaints GI Reports as per HPI and Reports no additional complaints Reports as per HPI Musc Reports no additional complaints Skin/Breast Reports as per HPI Neuro Reports no additional complaints Psych Reports no additional complaints Endo Reports no additional complaints John/Lymph Reports no additional complaints Aller/Immun Reports no additional complaints Physical Exam Vital Signs: Last Vital Signs BP 102/74 02/15/25 14:53 BMI result Body Mass Index 20.2 Const General: cooperative, healthy appearing, no acute distress, well developed and alert Orientation/consciousness: patient oriented x3 HEENT Head: Yes normal to inspection Eyes General: appearance normal, both eyes and all related structures Neck Neck: Yes normal visual inspection Thyroid: Thyroid normal Chest Chest palpation & inspection: normal inspection of the chest and other (no puckering, dimpling, peau de orange, retraction, discharge, masses) Breast/axilla inspection: normal inspection of the breasts Breast/axilla palpation: normal palpation of the breasts Resp Effort & Inspection: normal respiratory effort GI Inspection: Yes normal to inspection Palpation (GI): Soft to palpation Rectal Exam - Female: deferred Other: Tense with the exam, thick perineal body General: Yes bladder normal to palpation External Female Exam: normal external appearance and normal appearance of the urethra Speculum Exam - Vagina: normal appearance of the vagina, normal palpation and normal vaginal discharge Speculum Exam - Cervix: normal appearance of the cervix and normal palpation Bimanual exam- vagina & uterus: normal bimanual exam, normal palpation, uterine size normal, bladder normal to palpation, normal palpation and non-tender Bimanual Exam- Adnexa, other: no masses Skin General skin exam: no rashes or lesions noted Rashes: no rashes Neuro General: patient oriented x3 Cognition (Neuro): normal cognition Extrem General: Yes normal to inspection Psych Attitude: cooperative Thought process: Normal thought process present Assessment & Plan Assessment & Plan (1) Encounter for well woman exam with routine gynecological exam: Code(s): Z01.419 - Encounter for gynecological examination (general) (routine) without abnormal findings Category: Medical Plan Discussed: Current recommendations for pap smears per ASCCP guidelines. Pap obtained. GC chlamydia and BV panel obtained. Breast awareness and periodic breast exams. Maintain a healthy lifestyle including a well balanced diet and routine exercise. Use condoms for STI and prevention. Schedule Nexplanon removal. Patient verbalizes understanding and agrees to the plan of care. She was given opportunity to ask questions and all questions were answered to the best of my ability. 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 This note is constructed using voice recognition software. While every effort has been made to ensure accuracy, aegis operations specialist errors may have been included. Orders: Orders Bacterial Vaginosis Panel Today Z11.3 - Encounter for screening for infections with a predominantly sexual mode of transmission CT NG by PCR Vag/Cerv Today Z11.3 - Encounter for screening for infections with a predominantly sexual mode of transmission Syphilis Screen Today Z20.2 - Contact with and (suspected) exposure to infections with a predominantly sexual mode of transmission AMB HCG Urine Test Today Z32.02 - Encounter for test, result negative HIV Ab/Ag Today Z20.2 - Contact with and (suspected) exposure to infections with a predominantly sexual mode of transmission Hepatitis C Antibody Reflex Today Z20.2 - Contact with and (suspected) exposure to infections with a predominantly sexual mode of transmission Pap Smear Today Z01.419 - Encounter for gynecological examination (general) (routine) without abnormal findings Coding Level of Care Code Est Pt Prev Care 18-39y([id number]) Diagnoses Encounter for well woman exam with routine gynecological exam Z01.419
[2025-02-15 14:53] VITALS: BP 102/74; BMI 20.2
== END 2025-02-15 15:17 | disposition home or self-care (01) ==
LOC: HO.HWS 14:41
PROVIDERS: PCP Nurse Practitioner Family; Visit Provider Advanced Practice Midwife
DX: Z01.419 Encounter for gynecological examination (general) (routine) without abnormal findings (principal)
CPT/HCPCS: 99395; 99459

== ENCOUNTER 2025-05-03 11:25 | Outpatient (AMB) | payer OTHER, SELFPAY ==
[2025-05-03 11:28] VITALS: BP 122/84; BMI 20.8
--- NOTE | 2025-05-03 11:28 | MHC.OFFVIS ---
Vital Signs 05/03/25 11:28 Height 5 ft 1 in Weight 110 lb BMI 20.8 BP 122/84 Intake Visit Reasons: Nexplanon Removal/45 mins Video Production Assistant: Video Production Assistant Present (Stella) Allergies No Known Allergies Allergy (Verified 05/03/25 11:29) Is last menstrual period known: Yes Last menstrual period: 04/15/25 HPI Comments Details: Patient is here today for a Nexplanon removal the devices has a year ago. She is not sexually active and has no concerns her risk for . [facility] Medical History Low libido Surgical History S/P LASIK surgery of both eyes Family History Maternal Grandfather Colon cancer, Onset Age: 70 Mother No problems noted. Father No problems noted. Sister No problems noted. 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[employer] Sexual orientation: Straight/Heterosexual Gender identity: Female Cognitive needs: No Hearing needs: No Vision needs: No Female Reproductive History Menstrual Age of Menarche: 12 Date of last menstrual period: 04/15/25 Review of Systems Const All systems reviewed & are unremarkable except as noted in HPI and below Endo Reports no additional complaints Physical Exam Vital Signs: Last Vital Signs BP 122/84 05/03/25 11:28 BMI result Body Mass Index 20.8 Const General: cooperative, healthy appearing and no acute distress Extrem Other: Implant noted left inner upper arm, superficially implanted, nontender Psych Appearance: well kempt Attitude: cooperative Thought process: Normal thought process present Office Procedures Contraception Insert/Removal Details Details: Nexplanon Removal Procedure Nexplanon Removal Counseling: The patient was counseled regarding Nexplanon removal procedure risks for: pain, infection bleeding, bruising , swelling scarring, injury to nerves, blood vessels, and surrounding tissue. ?All questions were answered. ?The patient has signed the consent form and desires to proceed with the procedure. Nexplanon Removal Procedure: The patient was placed in a supine position with her non dominant left hand resting under her head. The insertion site was located: 8-10cm from the medial epicondyle notch of the humerus, posterior to the sulcus, between the triceps and biceps muscle. The area of the ?implant was identified and the distal tip located. This area was cleansed with an alcohol prep and 1 ml of 1% Lidocaine on a 25 gauge needle and syringe was utilized for adequate anesthesia to the insertion site. After ascertaining adequate anesthesia, the area was prepped with Betadine solution. The skin over the distal tip was incised with a #11 blade scalpel and the capsule was located and entered freeing the implant from the canal. The implant was removed with a gentle tug using a mosquito clamp and removed intact. Direct pressure was applied to the insertion site for hemostasis, minimal bleeding was observed. Steri strips, Tegaderm covering, gauze pads, and Kushal wrap dressing were secured with paper tape. Nexplanon Removal Post Care Instructions: You may expect mild tenderness, swelling, and bruising from the area. If no allergies, you may use a mild over the counter analgesic like Tylenol or Advil (follow the manufacturers recommendations on dosing and frequency of use). Call the office if any symptoms and including: fever (over 100.4), flu like symptoms, signs of infection-redness, pus drainage, pain (beyond usual healing). Keep the pressure dressing on and clean and dry for 24 hours, then remove it. You may take the steri strips and Tegaderm off in 5-7 days, or sooner if peeling off on its own. The patient tolerated the procedure well and left the office in good condition. This note is constructed using voice recognition software. ?While every effort has been made to ensure accuracy, job press operator errors may have been included. ? [id number] - Removal Results AMB Test Urine AMB Test Urine Negative Last Edit by LITA Frost on 05/03/25 12:12 Assessment & Plan Assessment & Plan (1) Encounter for Nexplanon removal: Code(s): Z30.46 - Encounter for surveillance of implantable subdermal contraceptive Plan See procedure notes. Advised if intimate with the partner in the future to use condoms consistently until control can be initiated. Due to her medical condition progesterone only or nonhormonal product availability to be utilized. The patient expressed understanding and agreement with the plan of care. All of her questions and concerns were addressed to the best of my ability. Annual exam scheduled January 2026. This note is constructed using voice recognition software. While every effort has been made to ensure accuracy, job press operator errors may have been included. Orders: Orders AMB HCG Urine Test Today Z32.02 - Encounter for test, result negative Coding Level of Care Code Procedure Only Diagnoses Encounter for Nexplanon removal Z30.46 CPT Codes Details - Contraception: 55009 - Removal ([id number])
== END 2025-05-03 12:09 | disposition home or self-care (01) ==
LOC: HO.HWS 11:26
PROVIDERS: PCP Nurse Practitioner Family; Visit Provider Advanced Practice Midwife
DX: Z30.46 Encounter for surveillance of implantable subdermal contraceptive (principal); Z32.02 Encounter for pregnancy test, result negative
CPT/HCPCS: 11982

== ENCOUNTER → 2025-05-03 11:25 | Outpatient (BNVA) | payer OTHER, SELFPAY | PROVIDERS: PCP Nurse Practitioner Family; Visit Provider Advanced Practice Midwife | DX: Z30.46 Encounter for surveillance of implantable subdermal contraceptive (principal) | CPT/HCPCS: 11982; 81025 ==

== ENCOUNTER 2025-05-18 10:34 | Outpatient (AMB) | payer OTHER, SELFPAY ==
--- NOTE | 2025-05-18 10:40 | MHC.PC.OV ---
Vital Signs 05/18/25 10:43 Height 5 ft 1 in Weight 109 lb 8 oz BMI 20.7 BP 118/70 Blood Pressure Location Lt brachial Position Sitting Respiration 12 Pulse 91 Pulse Source Pulse Oximeter Temp 97.2 F Temp Source Oral Pulse Oximetry (%) 99 Oxygen Delivery Method Room Air Intake Visit Reasons: Annual PE Intake Note: CPE. Ultra Sound Technician Required: No Allergies No Known Allergies Allergy (Verified 05/18/25 10:46) Medication List - Last Reconciled 05/18/25 by ROSCOE Osorio- etonogestrel (Nexplanon) 68 mg subdermal DAILY Tobacco use date assessed: 05/18/25 Dental Screening Dental Screen Date: 05/18/25 Did you have a dental visit in the last 12 months?: Yes Did you have a dental problem in the last 6 months where you did not have access to dental care?: No Was dental information given to patient?: Patient has dentist HPI HPI Comments History of Present Illness Details 25-year-old female generalized anxiety disorder, ADHD, hyperkinetic syndrome, oppositional defiant disorder, recurrent skin abscesses, chronic daily headaches, fatigue, depression Social: in [employer], works for [employer] in [place] Surgery: No changes Fhx: as below, no changes Specialist Counselor - no longer Instruction Dean Heme - consult x 1. No need to fu Health maintenance Vaccines: Tdap 08/05/2023, Flu 05/08/25 Pap 01/2025 [facility] History of Present Illness The patient is a 25-year-old female presenting for a complete physical examination and vaccination updates. Anxiety: - History of anxiety. Attention-Deficit/Hyperactivity Disorder (ADHD): - ADHD diagnosis without current treatment. Depression: - Discontinued sertraline was in counseling, stopped. Mood is great. Got a new job and this helepd. Syncope and collapse: - Previous episodes; Holter monitor completed; missed cards appt; no recent events. would like new referral. Updated today to [facility] [place] Chronic daily headaches: - Regular headaches, no recent issues. Family History - Mother with lower extremity deep vein thrombosis (DVT) during - Mother diagnosed with Factor V Leiden mutation - No family history of blood clots beyond mother's DVT Social History - Employed at the [employer], transitioned to a job more aligned with her interests. 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 - Previous job dissatisfaction improved with job change. - Discontinued gym-based exercise but engages in physical activity required by job. - No interest in presently. - Previously used Nexplanon, now removed. - Body weight is stable Health Maintenance - Past tetanus shot received last year. - Requirements for Tdap, MMR, and varicella titers discussed. - Pap smear performed in January, results were normal. - Flu shot received on 05/08/2025. - Previous hepatitis vaccination completed Review of Systems - General: No recent weight loss. Stable weight. - Cardiovascular: Denies recurrence of syncope or collapse. - Neurological: Reports history of headaches. - Psychiatric: Reports history of anxiety and depression. No current medication. - Reproductive: No interest in conception. Periods not yet resumed post-Nexplanon removal. Physical Exam General: Well developed, well nourished, in no acute distress. Appears stated age. Head: Normocephalic, atraumatic. Eyes: Pupils are equal, round and reactive to light and accommodation. Conjunctivae are clear. Scleras nonicteric bilat. Vision grossly normal. Ears: TMs clear AU, EACS WNL Nose: Patent, without discharge. Neck: No carotid bruit bilat. Supple, no adenopathy or thyromegaly. Breast: Edu on SBE Lungs: Clear to auscultation bilaterally. No rales, rhonchi or wheeze noted. Good air flow in all mcginnis. Heart: Regular rate and rhythm. No murmurs, click, rubs or gallops are noted. Abdomen: Bowel sounds present in all quadrants. The abdomen is soft, nontender, with no masses or organomegaly noted. No hernias are noted. : Deferred. Reviewed recommendations for routine CIVIL DESIGNER Pulses: Peripheral pulses are equal and palpable bilaterally. Extremities: No clubbing, cyanosis nor edema is noted. Neurologic: Gait and station normal. Cranial Nerves 2-12 intact. Motor strength grossly symmetrical and intact. No sensory loss. Balance normal. Skin: No rashes, ulcers, or lesions noted. Turgor is good. Skin color is good. Hair and nails are without abnormalities. Psych: Normal eye contact, affect and mood appropriate, and normal interactions. Patient is alert and appropriate to context. Results - Labs: Plan for MMR and varicella titers. - Diagnostics: Previous Holter monitor results were normal. Discussion Notes I explained the need for a complete physical exam and vaccination updates to the patient. We reviewed her past medical history, including anxiety, ADHD, depression, syncope, and daily headaches. I advised checking immunity for MMR and varicella through blood titers and arranged for records of a prior tetanus shot. We noted normal Pap smear results and recent flu vaccination. We discussed the importance of potential follow-up with cardiology concerning her past syncope after the Holter monitor results. I addressed the cessation of sertraline and removal of Nexplanon, advising on monitoring for any changes post-explant. 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 I clarified vaccination options if immunity is inadequate. Lastly, I prepared relevant documentation for her physical exam status and discussed the route for further lab and vaccine follow-ups. Patient was given time to ask questions. All questions were answered to their satisfaction. Assessment and Plan 1. Anxiety - No medication; stable, monitor. 2. ADHD - No current intervention; stable, monitor. 3. Depression - Observe post-sertraline discontinuation; possible follow-up for symptoms. 4. Syncope and collapse - Follow-up with cardiology, normal Holter. 5. Chronic daily headaches - Symptom monitoring. 6. Vaccination updates - Blood test for MMR and varicella; records updated for vaccinations. Patient Instructions - Arrange for blood tests to check immunity for MMR and chicken pox. - Monitor mental health; follow-up if symptoms of anxiety or depression return. - Observe physical reactions after recent changes in contraception. - Follow vaccination requirements for the medical program. - Follow-up with passenger locomotive engineer regarding syncope history. 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 - RTO 1 year CPE, sooner as needd. Consent I obtained consent from the patient to perform her blood work for the necessary vaccinations as part of her educational program requirements. We reviewed the need for possible booster vaccinations based on the blood test results. We discussed the implications of her syncope history and agreed to revisit cardiology follow-up. Consent was confirmed verbally and documented for immunization titers and medical referrals as necessary. Patient was informed and verbally consented to the use of an ambient scribe for clinic note documentation during this visit. [facility] Medical History Low libido Surgical History S/P LASIK surgery of both eyes Family History Maternal Grandfather Colon cancer, Onset Age: 70 Mother No problems noted. Father No problems noted. Sister No problems noted. 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 1. Little interest or pleasure in doing things: not at all 2. Feeling down, depressed, or hopeless: not at all 3. Trouble falling or staying asleep, or sleeping too much: several days 4. Feeling tired or having little energy: not at all 5. Poor appetite or overeating: several days 6. Feeling bad about yourself - or that you are a failure or have let yourself or your family down: not at all 7. Trouble concentrating on things, such as reading the newspaper or watching television: not at all 8. Moving or speaking so slowly that other people could have noticed. Or the opposite - being so fidgety or restless that you have been moving around a lot more than usual: not at all 9. Thoughts that you would be better off or of hurting yourself in some way: not at all Total score: 2 Depression Screening Interpretation: Negative Depression Screening Done: Yes [id number] - PHQ-9 Billing: Yes Source: Developed by Drs. Shawn Vargas, Tonya Gama, Oscar Pulido and colleagues, with an educational keshia from [employer]. Thrive Questionnaire Date Thrive assessed: 05/18/25 I am a: Patient What is your living situation today?: I have a steady place to live Within the past 12 months, did the food you bought not last and you didn't have the money to get more?: Never true Within the past 12 months, did you worry whether your food would run out before you got money to buy more?: Never true Do you have trouble paying for medicines?: No Do you have trouble getting transportation to medical appointments?: No Do you have trouble paying your heating and electricity bill?: No Do you have trouble taking care of your child, family member or friend?: No Do you have trouble with day-to-day activities such as bathing, preparing meals, shopping, managing finances, etc.?: No Are you currently unemployed and looking for a job?: No Are you interested in more education?: Yes Please select the resources that you would like help with: None Currently or been in a relationship where the following occur: I choose not to answer THRIVE Score: 0 AUDIT C Alcohol Use Questionnaire (AUDIT-C) 1. How often do you have a drink containing alcohol?: Monthly or less 2. How many drinks containing alcohol do you have on a typical day when you are drinking?: 1 or 2 3. How often do you have six or more drinks on one occasion?: Never Total Score: 1 Score Reviewed/Action Taken: Yes MATTHEW-7 AMB Questionnaire MATTHEW-7 Date MATTHEW - 7 assessed: 05/18/25 Feeling nervous, anxious, or on edge: 0 = Not at all Not being able to stop or control worryin = Not at all Worrying too much about different things: 0 = Not at all Trouble relaxin = Not at all Being so restless that it is hard to sit still: 0 = Not at all Becoming easily annoyed or irritable: 1 = Several days Feeling afraid as if something awful might happen: 0 = Not at all Total MATTHEW-7 score (0-4 normal; 5-9 mild; 10-14 moderate; 15-21 severe): 1 Source: Developed by Drs. Shawn Vargas, Tonya Gama, Oscar Pulido and colleagues, with an educational keshia from [employer]. MATTHEW-7 Assessment Billing MATTHEW-7 Assessment Tool: MATTHEW-7 Assessment 02971 Physical exam (Primary Care) Vital Signs: Last Vital Signs Temp 97.2 F 05/18/25 10:43 Pulse 91 05/18/25 10:43 Resp 12 05/18/25 10:43 BP 118/70 05/18/25 10:43 Pulse Ox 99 05/18/25 10:43 Oxygen Delivery Method Room Air 05/18/25 10:43 BMI result Body Mass Index 20.7 Tobacco/Smoking Status: Tobacco use Status Tobacco use date assessed 05/18/25 05/18/25 10:44 Patient Tobacco Use Status Never used Tobacco 05/18/25 10:44 e-Cigarette/Vaping Use Never Used 05/18/25 10:44 PHQ-9: PHQ-9 Score PHQ-9: Total score 2 05/18/25 10:44 Depression Screening Interpretation: Negative Thrive Assessment: Date of Thrive Assessment Date Thrive assessed 05/18/25 05/18/25 10:44 Currently or been in a relationship where the following occur: I choose not to answer Coding Level of Care Code Est Pt Prev Care 18-39y([id number]) Diagnoses Annual physical exam Z00.00 MATTHEW (generalized anxiety disorder) F41.1 Moderate episode of recurrent major depressive disorder F33.1 Major depression episode severity: moderate Attention deficit hyperactivity disorder (ADHD), combined type F90.2 Attention deficit-hyperactivity disorder type: combined inattentive-hyperactive Family history of supraventricular tachycardia Z82.49 Family history of factor V deficiency Z83.2 Syncope and collapse R55 Laboratory exam ordered as part of routine general medical examination Z00.00 Additional Codes MATTHEW-7 Assessment Billing - MATTHEW-7 Assessment Tool: MATTHEW-7 Assessment 13914 ([id number]) PHQ-9 - 73933 - PHQ-9 Billing: Yes ([id number]) Assessment & Plan Assessment & Plan (1) Annual physical exam: Onset Date: ~05/18/25 Code(s): Z00.00 - Encounter for general adult medical examination without abnormal findings Category: Medical (2) MATTHEW (generalized anxiety disorder): Code(s): F41.1 - Generalized anxiety disorder Category: Medical (3) MDD (major depressive disorder), recurrent episode: Code(s): F33.9 - Major depressive disorder, recurrent, unspecified Category: Medical Qualifiers: Major depression episode severity: moderate Qualified Code(s): F33.1 - Major depressive disorder, recurrent, moderate (4) ADHD: Comment: on Adderral in past by Ebony. Did not like the way it made her feel. Currently on no medications. Doing fine. Code(s): F90.9 - Attention-deficit hyperactivity disorder, unspecified type Category: Medical Qualifiers: Attention deficit-hyperactivity disorder type: combined inattentive-hyperactive Qualified Code(s): F90.2 - Attention-deficit hyperactivity disorder, combined type (5) Family history of supraventricular tachycardia: Code(s): Z82.49 - Family history of ischemic heart disease and other diseases of the circulatory system Category: Medical (6) Family history of factor V deficiency: Code(s): Z83.2 - Family history of diseases of the blood and blood-forming organs and certain disorders involving the immune mechanism Category: Medical (7) Syncope and collapse: Code(s): R55 - Syncope and collapse Category: Medical (8) Laboratory exam ordered as part of routine general medical examination: Code(s): Z00.00 - Encounter for general adult medical examination without abnormal findings Category: Medical Plan . Orders: Orders MMR IgG Measles Mumps Rubella Today Z00.00 - Encounter for general adult medical examination without abnormal findings Lipid Panel Today Z00.00 - Encounter for general adult medical examination without abnormal findings Microalbumin, Random (w Creat) Today Z00.00 - Encounter for general adult medical examination without abnormal findings Varicella IgG Antibody Today Z00.00 - Encounter for general adult medical examination without abnormal findings Comprehensive Met. Panel Today Z00.00 - Encounter for general adult medical examination without abnormal findings TSH reflex Free T4 Today Z00.00 - Encounter for general adult medical examination without abnormal findings Vitamin B12 and Folate Today Z00.00 - Encounter for general adult medical examination without abnormal findings Vitamin D 25-OH Total Today Z00.00 - Encounter for general adult medical examination without abnormal findings Referrals Cardiology Referral R55 - Syncope and collapse, Z82.49 - Family history of ischemic heart disease and other diseases of the circulatory system Patient Instructions: Health screenings for women You should visit your health care provider from time to time, even if you are healthy. The purpose of these visits is to: Screen for medical issues Assess your risk for future medical problems Encourage a healthy lifestyle Update vaccinations and other preventive care services Help you get to know your provider in case of an illness Information Even if you feel fine, you should still see your provider for regular checkups. These visits can help you avoid problems in the future. For example, the only way to find out if you have high blood pressure is to have it checked regularly. High blood sugar and high cholesterol levels also may not have any symptoms in the early stages. A simple blood test can check for these conditions. There are specific times when you should see your provider or receive specific health screenings. The [place] Preventive Services Task Force publishes a list of recommended screenings. Below are screening guidelines for women ages 18 to 39. BLOOD PRESSURE SCREENING Your blood pressure should be checked at least once every 3 to 5 years if: Your blood pressure is in the normal range (top number less than 120 mm Hg and bottom number less than 80 mm Hg) You don't have risk factors for high blood pressure Ask your provider if you need your blood pressure checked more often if: The top number is 120 to 129 mm Hg or the bottom number is 70 to 79 mm Hg You have diabetes, heart disease, kidney problems, are overweight, or have certain other health conditions You have a first-degree relative with high blood pressure You are Black You had high blood pressure during a If the top number is 130 mm Hg or greater or the bottom number is 80 mm Hg or greater, this is considered stage 1 hypertension. Schedule an appointment with your provider to learn how you can reduce your blood pressure. Watch for blood pressure screenings in your area. Ask your provider if you can stop in to have your blood pressure checked. BREAST CANCER SCREENING Experts do not agree about the benefits of breast self-exams in finding breast cancer or saving lives. Talk to your provider about what is best for you. A screening mammogram is not recommended for most women under age 40. Your provider may discuss and recommend mammograms, MRI scans, or ultrasounds if you have an increased risk for breast cancer, such as: A mother or sister who had breast cancer at a young age (most often starting screening earlier than the age the close relative was diagnosed) You carry a high-risk genetic marker CERVICAL CANCER SCREENING Cervical cancer screening should start at age 21 years unless your provider advises otherwise. After the first test: Women ages 21 through 29 should have a Pap test every 3 years. Exoprts do not agree on whether HPV testing is recommended for this age group. Women ages 30 through 65 should be screened with either a Pap test every 3 years or the HPV test every 5 years or both tests every 5 years (called cotesting ). Women who have been treated for precancer (cervical dysplasia) should continue to have Pap tests for 20 years after treatment or until age 65, whichever is longer. If you have had your uterus and cervix removed (total hysterectomy), and you have not been diagnosed with cervical cancer or precancer (high grade cervical neoplasia), you do not need cervical cancer screening. CHOLESTEROL SCREENING Cholesterol screening should begin at: Age 45 for women with no known risk factors for coronary heart disease Age 20 for women with known risk factors for coronary heart disease Repeat cholesterol screening should take place: Every 5 years for women with normal cholesterol levels More often if changes occur in lifestyle (including weight gain and diet) More often if you have diabetes, heart disease, kidney problems, or certain other conditions DIABETES SCREENING You should be screened for diabetes starting at age 35 and then repeated every 3 years if you have no risk factors for diabetes. Screening may need to start earlier and be repeated more often if you have other risk factors for diabetes, such as: You have a first degree relative with diabetes. You are overweight or have obesity. You have high blood pressure, prediabetes, or a history of heart disease. Screening for diabetes should be done if you are planning to become and you are overweight and have other risk factors such as high blood pressure. DENTAL EXAM Go to the dentist once or twice every year for an exam and cleaning. Your dentist will evaluate if you need more frequent visits. EYE EXAM Have an eye exam every 5 to 10 years before age 40. If you have vision problems, have an eye exam every 2 years or more often if recommended by your provider. You should have an eye exam that includes an examination of your retina (back of your eye) at least every year if you have diabetes. IMMUNIZATIONS Commonly needed vaccines include: Flu shot: get one every year. COVID-19 vaccine: ask your provider what is best for you. Tetanus-diphtheria and acellular pertussis (Tdap) vaccine: have one at or after age 19 as one of your tetanus-diphtheria vaccines if you did not receive it as an adolescent. Tetanus-diphtheria: have a booster (or Tdap) every 10 years. Varicella vaccine: receive 2 doses if you never had chickenpox or the varicella vaccine. Hepatitis B vaccine: receive 2, 3, or 4 doses, depending on your exact circumstances. Measles, mumps, and rubella (MMR) vaccine: receive 1 to 2 doses if you are not already immune to MMR. Your provider can tell you if you are immune. Ask your provider about the human papillomavirus (HPV) vaccine if: You have not received the HPV vaccine in the past You have not completed the full vaccine series (you should catch up on this shot) Ask your provider if you should receive other immunizations if you have certain health problems that increase your risk for some diseases such as pneumonia. INFECTIOUS DISEASE SCREENING Women who are sexually active should be screened for chlamydia and gonorrhea up until age 25. Women 25 years and older should be screened for chlamydia and gonorrhea if at high risk. Screening for hepatitis C: All adults ages 18 to 79 should get a one-time test for hepatitis C. people should be screened at every . Screening for human immunodeficiency virus (HIV): All people ages 15 to 65 should get a one-time test for HIV. Depending on your lifestyle and medical history, you may also need to be screened for infections such as syphilis and HIV, as well as other infections. PHYSICAL EXAM All adults should visit their provider from time to time, even if they are healthy. The purpose of these visits is to: Screen for disease Assess your risk of future medical problems Encourage a healthy lifestyle Update your vaccinations and other preventive care services Maintain a relationship with a provider in case of an illness Your height, weight, and BMI should be checked at every exam. During your exam, your provider may ask you about: Depression and anxiety Diet and exercise Alcohol and tobacco use Safety issues, such as using seat belts, smoke detectors, and intimate partner violence Your medicines and risk for interactions SKIN SELF-EXAM Your provider may check your skin for signs of skin cancer, especially if you're at high risk, such as if you: Have had skin cancer before Have close relatives with skin cancer Have a weakened immune system OTHER SCREENING Talk with your provider about colon cancer screening if you have a strong family history of colon cancer or polyps, or if you have had inflammatory bowel disease or polyps yourself. Routine bone density screening of women under 40 is not recommended.
[2025-05-18 10:43] VITALS: BP 118/70; PULSE 91; RESP 12; TEMP 36.2; O2SAT 99; BMI 20.7
== END 2025-05-18 11:03 | disposition home or self-care (01) ==
LOC: HO.HMCFM 10:35
PROVIDERS: PCP Nurse Practitioner Family; Visit Provider Nurse Practitioner Family
DX: Z00.00 Encounter for general adult medical examination without abnormal findings (principal); F41.1 Generalized anxiety disorder; F33.1 Major depressive disorder, recurrent, moderate; F90.2 Attention-deficit hyperactivity disorder, combined type; Z82.49 Family history of ischemic heart disease and other diseases of the circulatory system; Z83.2 Family history of diseases of the blood and blood-forming organs and certain disorders involving the immune mechanism; R55 Syncope and collapse

== ENCOUNTER 2025-05-18 10:34 | Outpatient (REF) | payer OTHER, SELFPAY ==
[2025-05-18 15:13] LABS: Microalbum/Creatinine Ratio Ur 9.4 ug/mg cr (<30)
[2025-05-18 16:29] LABS: Folate 7.4 ng/mL (> or = 4.0); Vitamin B12 423 pg/mL (200-900)
[2025-05-18 17:10] LABS: Alanine Aminotransferase 15 U/L (0-31); Albumin Level 4.9 g/dL (3.5-5.0); Alkaline Phosphatase 47 U/L (39-117); Anion Gap 13 (12-20); Aspartate Amino Transferase 16 U/L (5-31); Blood Urea Nitrogen 15 mg/dL (9-16); Calcium 9.2 mg/dL (8.4-10.2); Carbon Dioxide 25 mmol/L (22-29); Chloride 106 mmol/L (96-108); Cholesterol 106 mg/dL (<200); Estimated Glomerular Filt Rate > 60; HDL Cholesterol 46 mg/dL (>40); Potassium 4.1 mmol/L (3.3-5.1); Sodium 140 mmol/L (135-145); Total Protein 7.3 g/dL (6.5-8.0); Triglycerides 41 mg/dL (<150)
[2025-05-21 17:28] LABS: Rubeola IgG (Measles) <13.50 AU/mL
== END 2025-05-18 10:35 | disposition home or self-care (01) ==
LOC: HO.WFDLDS 10:34
PROVIDERS: PCP Nurse Practitioner Family; Visit Provider Nurse Practitioner Family
DX: Z00.00 Encounter for general adult medical examination without abnormal findings (principal); F41.1 Generalized anxiety disorder; F33.1 Major depressive disorder, recurrent, moderate; R55 Syncope and collapse; F90.2 Attention-deficit hyperactivity disorder, combined type; Z82.49 Family history of ischemic heart disease and other diseases of the circulatory system; Z83.2 Family history of diseases of the blood and blood-forming organs and certain disorders involving the immune mechanism
CPT/HCPCS: 36415; 80053; 80061; 82043; 82306; 82570; 82607; 82746; 84443; 86735; 86762; 86765; 86787; 96127